=== PATIENT | male | born 1945 | race Caucasian/White ===

== ENCOUNTER 2019-01-06 10:36 | Inpatient (IN) ==
--- NOTE | 2019-01-06 12:14 | Critical Care Consultation ---
Date of Consultation January 06, 2019 Assessment & Plan (1) Acute respiratory failure with hypoxia: Neuro-awake alert CV- HD stable. aspirin, statin, clopidogrel(unclear why he is on this). check echo Pulmonary- acute hypoxic respiratory failure unclear cause atelectasis vs aspiration. less likely pulmonary embolism but may need to workup if not improving. titrate off o2 for sat >92% ID- no clear infection. abx for possible aspiration pneumonia Renal- cr 1.2 recheck here GI- diet as tolerated Heme- thrombocytopenia likely sepsis. enoaparin proph Endocrine- keep blood sugars <180 Dispo- transfered here to ICU if sat ok may be able to be downgraded later History of Present Illness Reason for Consultation: acute respiratory failure Attending Physician: Lazaro Quintana MD History of Present Illness 73 y/o male with a history of HTN, hyperlipidemia who started having nausea, vomiting and diarrhea on Thursday 5 days ago. He then presented to [facility] on 01/04. on 01/05 he had infiltrate at left base on CXR and on CT chest abd had atelectasis at bases but no intraabdominal process. 01/05 ultrasound LE negative for DVT 01/05 ultrasound RUQ mild hepatomegaly and nonspecific thickenign of gallbladder wall on 01/05 he was febrile up to 103.8 F. He has had increasing shortness of breath and worsening signs of sepsis and was transferred here for further care. Currently he still complaints of shortness of breath. He has not pain. no further nausea. he says one of the times he vomited he saw some blood Patient History Medical History Borderline diabetes mellitus Diverticulosis Glaucoma HTN (hypertension) Hiatal hernia Hyperlipidemia Hyperplastic colon polyp Kidney stones Surgical History Knee joint cyst Family History Brother Colorectal cancer Social History Communication Ability: Effective Beliefs That Will Affect Care: None Current Living Situation: Spouse Feels Safe at Home: Yes Smoking Status: Never smoker Hx Alcohol Use: No Hx Substance Use: No Review of Systems Constitutional: no fevers no chills no weight loss Eyes: no blurry or double vision EENT: no sore throat, no congestion Respiratory: + cough + shortness of breath Cardiovascular: no chest pain no palpitations GI: + abdominal pain, + nausea, + vomiting, + diarrhea, no constipation Gu: no dysuria, no frequency MSK: no joint pain, no muscle aches Skin: no rash Neuro: no headache, no dizziness, no focal weakness Endocrine: no heat or cold intolerance heme: no easy bruising, no lymphadenopathy Psych: no depression, no anxiety Physical Exam Physical Exam: Constitutional: Comfortable NAD HEENT: normocephalic atraumatic. MMM. no cervical lymphadenopathy CV: RRR nl s1,s2 no murmurs rubs or gallops Lungs: slight crackles bilaterally. no accessory muscle use. some dyspnea with speaking. on NRB sat 95-96% Abd: soft nontender nondistended. normal bowel sounds Ext: no edema. no cyanosis, no clubbing Skin: warm dry Neuro: alert and oriented. moving all extremities Psych: normal mood and affect Results & Data Laboratory Results reviewed labs from outside hosptal Diagnostic Findings reviewed CT from outside hospital atelectatis at bases posteriorly rest of lung clear on 01/05
[2019-01-06] MEDS ORDERED: ICU PROTOCOL FOR HYPERGLYCEMIA PRN (12:17)
[2019-01-06] MEDS ORDERED: ALBUT/IPRATROP 3MG/0.5MG NEB 3 ML VIAL INH PRN (12:17)
[2019-01-06] MEDS ORDERED: VANCOMYCIN CONSULT ACTIVE PRN (12:38)
[2019-01-06] MEDS ORDERED: PIPERACILLIN/TAZOBACTAM 4.5 GM in DEXTROSE 5% 100 ML IV STA (12:38)
[2019-01-06] MEDS ORDERED: PIPERACILL/TAZOBAC CONSULT ACTIVE PRN (12:38)
[2019-01-06] MEDS ORDERED: PATIENT'S ALLERGY INFO NEEDS ENTERED SCH (12:45)
[2019-01-06] MEDS ORDERED: PATIENT'S HEIGHT AND/OR WEIGHT NEEDED SCH (12:45)
--- NOTE | 2019-01-06 13:24 | Pharmacy Report ---
Pharmacy Abx Dose Short Note - Date of Service January 06, 2019 - Assessment & Plan Assessment * 73 year old M transfer from [facility] for respiratory distress. Per [facility] rubbish collector (Dr. Mas), not likely infectious etiology but will continue Zosyn and vancomycin that the patient was receiving @ [facility] prior to transfer * [facility] records reviewed * Vancomycin q12h active order from 01/05 @ 1800. Last dose charted as admin 01/06 @ 0615. Dose (in mg) not reported, unknown start date, unknown if received loading dose. * Vancomycin trough ordered for 01/06 @ 1730 * Zosyn 3.375 g IV q6h active order from 01/05 @ 0530. Last dose charted as admin 01/06 @ 0615. Likely 30 minute infusions 2nd interval of q6h. Will switch to 4 hr infusions here * Azithromycin 500 mg IV q24h active order from 01/04 @ 1800. Last dose charted as admin 01/05 @ 1820 Vancomycin * Goal vancomycin *trough* 15-20 mcg/mL * Random level ordered for now. Will likely be elevated as patient received dose this AM at 0615, but this is not a trough on a q12h regimen * Level was 21.2 mcg/mL. Based on estimated ke for CrCL of 49, level will not fall to 15 mcg/mL until 2029 tonight. Therefore OK to continue at previously scheduled time of 1800. However, will not order ongoing dose at this time 2nd unclear trend in renal function and will instead order a random level with AM labs tomorrow Plan * Vancomycin 1500 mg IV x1 @ 1800 * Random level with AM labs on 01/07 Pharmacy will continue to follow and will adjust dose/frequency as necessary. Thank you.
[2019-01-06 13:41] LABS: BUN Creatinine Ratio 14.7 (10-20); Calcium 8.2 mg/dl (8.5-10.1); Creatinine Clr Calc Pharmacy 48.6 ml/min; Est GFR (African American) 48.8; Est GFR (Non-African American) 42.1; Potassium 3.1 mmol/L (3.5-5.1)
[2019-01-06] MEDS: PIPERACILLIN/TAZOBACTAM 3.375 GM in DEXTROSE 5% 100 ML IV SCH ×2 (13:43→23:54)
[2019-01-06 13:47] LABS: Hematocrit (blood only) 38.2 % (42-52); Hemoglobin 13.7 g/dL (14.0-18.0); Mean Corpuscular Hgb Conc 35.9 g/dL (32-36); Mean Corpuscular Volume 87.6 fL (80-100); Platelet Count 25 K/uL (130-400); RDW Standard Deviation 42.1 fL (36.4-46.3); Red Blood Count 4.36 M/uL (4.7-6.1); White Blood Count 3.79 K/uL (4.8-10.8)
[2019-01-06 13:48] LABS: Basophils # (auto) 0.01 K/uL (0-0.2); Basophils % (auto) 0.3 %; Dohle Bodies 1+; Immature Granulocytes % (auto) 2.6 %; Lymphocytes # (auto) 0.12 K/uL (1.2-3.4); Lymphocytes % (auto) 3.2 %; Monocytes # (auto) 0.03 K/uL (0.11-0.59); Monocytes % (auto) 0.8 %; Neutrophils # (auto) 3.53 K/uL (1.4-6.5); Neutrophils % (auto) 93.1 %; Platelet Estimate SIGNIFIC DECREASED (Normal); Toxic Vacuolation 1+
[2019-01-06] MEDS ORDERED: DEXTROSE 50% 50 ML SYRINGE IV ONE (13:48)
[2019-01-06 13:52] LABS: INR 1.2 (0.9-1.1); Prothrombin Time 11.9 Seconds (9.0-12.0)
[2019-01-06 14:06] LABS: Albumin Level 2.5 gm/dl (3.4-5.0); Bilirubin Direct 1.5 mg/dl (0-0.2); Creatine Kinase MB 6.2 ng/ml (0.5-3.6); Total Protein 5.7 gm/dl (6.4-8.2); Troponin I 0.095 ng/ml (0-0.045)
[2019-01-06] MEDS ORDERED: POTASSIUM CHLORIDE 20 MEQ TABCR PO STA (14:09)
[2019-01-06] MEDS ORDERED: LACTATED RINGER'S 1,000 ML IV ONE ×2 (14:15→15:15)
[2019-01-06] MEDS: POTASSIUM CHLORIDE / WTR 10 MEQ/100 ML PLCT IV SCH ×2 (14:20→15:13)
[2019-01-06 14:45] LABS: iSTAT Allen Test Pass; iSTAT Arterial Blood Gas HCO3 15 meg/L (19-24); iSTAT Arterial Blood Gas pCO2 25 mmHg (35-46); iSTAT Carbon Dioxide 16 mEq/l (24-31); iSTAT FiO2 50 %; iSTAT Site R Radial
--- NOTE | 2019-01-06 14:52 | History & Physical Report ---
Date of Service January 06, 2019 Assessment & Plan (1) Sepsis: * Most likely secondary to aspiration pneumonia but with no clear etiology at this point * Gibson culture is negative from [facility] * Lactic acid remains elevated at 6.7 * Temperature 38.3C * Tachycardic at 105 bpm * Tachypnea 30 respirations per minute * Hypoxic requiring high flow O2 and BiPAP * CT scan of the chest abdomen pelvis with atelectasis versus pneumonia at bilateral bases. No abdominal process identified * Originally admitted to [facility] and started on azithromycin and ceftriaxone for 2 days * Was changed to vancomycin and Zosyn * Today is day 3 of IV antibiotics * Influenza toxin negative for A and B at [facility]; check PCR for influenza A and B * Check a MRSA screening * Continue supportive care (2) Atrial fibrillation by electrocardiogram: * New onset * Metoprolol 50 mg twice daily p.o. at home * Will treat underlying hypoxia and see if patient converts to normal sinus rhythm * Continue to monitor closely on telemetry * Patient with no awareness of tachyarrhythmia or prior history of atrial fibrillation * Check echocardiogram * Check TSH with reflex T4 (3) Hypertension: * Patient currently hemodynamically stable with a systolic blood pressure of 113. * Home medications include amlodipine 5 mg p.o. daily and metoprolol tartrate 50 mg p.o. twice daily * Treat responsively in the ICU * Echocardiogram completed with results pending (4) Hyperlipidemia: * Continue atorvastatin (5) History of TIA (transient ischemic attack): * Family reports no imaging supportive of CVA * Prophylactically patient was started 81 mg of enteric-coated aspirin and clopidogrel 75 mg p.o. daily as well as atorvastatin 40 mg p.o. daily * From reports no residual neurological deficits * Continue to follow (6) Hypokalemia: * Potassium 3.1 * Magnesium 2.0 * Replete and follow serial labs * Continue to monitor on telemetry (7) Thrombocytopenia: * Unclear etiology at this point * Family reports normal platelet count prior to admission * Patient positive for hematuria at this time * No gross hemoptysis * No melena or hematochezia noted * Hemoglobin is stable * Continue to follow labs serially (8) Acute kidney injury: * Creatinine 1.61, BUN 24 * Hydration * Echocardiogram * Follow serial labs * Patient currently with hematuria * Salguero catheter in place for strict I's and O's (9) Elevated troponin: * Most likely ischemic demand from hypoxia with respiratory failure * Follow serial isos * EKG with no ST changes * Echocardiogram completed; report pending * Follow on telemetry (10) Transaminitis: * Judicious use of acetaminophen * No abdominal pain, guarding, rebound tenderness * Bowel sounds are present and appropriate * Follow serial labs (11) DVT prophylaxis: * Hold clopidogrel and aspirin due to thrombocytopenia with a platelet count of 20,000 * No chemical prophylaxis secondary to hematuria and thrombocytopenia * Laila Ureña as tolerated Critical care time: 60 minutes Please refer to Dr. Quintana's addendum for further recommendations. History of Present Illness Chief Complaint: Shortness of breath; nausea and vomiting on admission to [facility] Primary Care Provider: Alvin Schilling MD Attending: Dr. Lazaro Quintana This is a 73-year-old male that was transferred to our intensive care unit directly from the intensive care unit at [facility] in [facility]. He began with nausea and vomiting and diarrhea last Thursday. Then 3 days ago he presented to [facility] in [facility] with shortness of breath. Chest x-ray and CT scan reveal atelectasis versus pneumonia versus pleural effusion. Patient was started on azithromycin and ceftriaxone. Patient had no significant improvement so he was converted to vancomycin and Zosyn yesterday. He continued to worsen and today had tachypnea with a respiratory rate in the 30s and continued hypoxia. ABG showed no acidosis and no hypercapnia. Dr. Nam then called and requested transfer to [facility]. The patient has a past medical history significant for borderline diabetes mellitus, diverticulosis, glaucoma, status post cataract surgery bilaterally, hypertension, hiatal hernia, hyperlipidemia, hyperplastic colon polyp, nephrolithiasis, and question of TIA. On presentation the patient appears to be short of breath but saturates in the mid 90s with high flow O2. Imaging from [facility] was reviewed and shows probable atelectasis by laterally. There is no significant evidence of pneumonia or large pleural effusions. Patient has no prior history of pulmonary disease and has never required supplemental oxygen. He has no tobacco or ethanol use history. 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 Over the last couple of months the patient has been rotating hay in his barn and noticed large amounts of bird droppings from Barn swallows. The patient has no exposure to silage. He does set traps for rodents in the barn but no significant exposure to rodent feces. He denies any chest pain or tightness. He denies any pleuritic chest pain. He does have hematuria and at least one episode of some blood-tinged mucus with cough. He has no current nausea. He has no current abdominal pain or back pain. He denies any asymmetrical edema of the lower extremities. He denies any gastrocnemius pain. He has no other acute complaints. Allergies Allergy/AdvReac Type Severity Reaction Status Date / Time No Known Drug Allergies Allergy Unknown Verified 01/06/19 13:09 Home Medications Home Medications Medication Instructions Recorded Confirmed Type amlodipine 5 mg PO DAILY 01/06/19 01/06/19 History aspirin [Aspirin Low Dose] 81 mg PO DAILY 01/06/19 01/06/19 History atorvastatin 40 mg PO DAILY 01/06/19 01/06/19 History clopidogrel 75 mg PO DAILY 01/06/19 01/06/19 History metformin 500 mg PO BID 01/06/19 01/06/19 History metoprolol tartrate 50 mg PO BID 01/06/19 01/06/19 History Past Med/Surg History Medical History Borderline diabetes mellitus Diverticulosis Glaucoma HTN (hypertension) Hiatal hernia Hyperlipidemia Hyperplastic colon polyp Kidney stones Surgical History Knee joint cyst Family History Brother Colorectal cancer Social History Communication Ability: Effective Beliefs That Will Affect Care: None Current Living Situation: Spouse Feels Safe at Home: Yes Smoking Status: Never smoker Hx Alcohol Use: No Hx Substance Use: No Review of Systems All systems reviewed & are unremarkable except as noted in HPI & below Physical Exam Vital Signs (Past 24 Hours): Last Vital Signs Temp 38.2 C H 01/06/19 12:21 Pulse 106 H 01/06/19 13:47 Resp 28 H 01/06/19 13:47 BP 113/74 01/06/19 13:00 Pulse Ox 96 01/06/19 13:47 Physical Exam: GENERAL : No acute distress EYES: No icterus, gaze conjugate. Pupils are equal and reactive to light NOSE: No evidence of epistaxis. High flow nasal cannula in place MOUTH: No lesions or candidiasis. Mucosa is moist. No facial droop or deviation of tongue NECK: Supple. No stridor or appreciation of bruits LUNGS: Bibasilar rales appreciated. No accessory muscle use. Short of breath with sentences when speaking HEART: Regular, tachycardic. No appreciation of murmurs gallops or rubs ABDOMEN: Soft, NT, ND, BS Present EXTREMITIES: No LE edema, pedal pulses intact. NEURO: A&OX3. Able to move all extremities. Strength equal and appropriate bilaterally to upper and lower extremities. Deep tendon reflexes to the biceps, brachioradialis, patellar tendons equal and appropriate 2/4. Speech is slightly garbled but coherent. Family present and states his speech is abnormal compared to usual. Gait and Romberg are deferred. Results & Data Laboratory Results 01/06/19 13:06 01/06/19 13:[address] chest abdomen pelvis without contrast, portable chest x-ray reviewed from [facility] record Transthoracic echocardiogram completed. Report pending EKG with atrial fibrillation with rapid ventricular response. QTC 436. Ventricular rate 105. No appreciation of ST wave abnormality Code Status & VTE Plan Code Status Level 1: Full code VTE Prophylaxis Plan VTE Prophylaxis will be ordered: No Reason for no VTE drug order: Contraindicated (Thrombocytopenia with a platelet count of 20,000) Critical Care Time CCT: 60 minutes Critical Care Time: Yes Supervising Physician Co-Signing Physician Notes I supervised PA/EVENT PLANNER on this admission. I interviewed and examined the patient independently of Phan Jack. The plan is as written in the PA/EVENT PLANNER's note except for any following changes/exceptions: 73yo M w/ hx of HTN who presented to [facility] 4 days ago with nausea and vomiting and one episode of watery diarrhea. Over the course of 4 days, he became increasingly short of breath and required more supplemental O2. CT scans were done which did not show a source of significant infection. He was initially on ceftriaxone and azithromycin, but was switched to vanc/Zosyn on 01/06 when he continued to get worse. At this point, he has no longer had nausea or vomiting or diarrhea, but continues to be very short of breath. He was sent to [facility] due to continued illness and hematuria. - Continue high flow nasal cannula - Follow cultures and labs - Will follow peripheral smear - Consider further vector-borne illnesses such as anaplasmosis or ehrlichiosis
[2019-01-06] MEDS ORDERED: DEXTROSE 50% 50 ML SYRINGE IV STA (15:22)
[2019-01-06] MEDS ORDERED: GLUCAGON FOR INJ 1 MG VIAL SQ PRN ×2 (15:24→20:46)
[2019-01-06] MEDS ORDERED: CARBOHYDRATES FOR HYPOGLYCEMIA PO PRN ×2 (15:24→20:46)
[2019-01-06] MEDS ORDERED: GLUCOSE 10 TABS/TUBE PO PRN ×2 (15:24→20:46)
[2019-01-06] MEDS ORDERED: DEXTROSE 50% 50 ML SYRINGE IV PRN ×2 (15:24→20:46)
[2019-01-06] MEDS ORDERED: GLUCOSE 40% GEL 15 GM TUBE PO PRN ×2 (15:24→20:46)
[2019-01-06] MEDS: ACETAMINOPHEN 325 MG TAB PO PRN (16:22)
[2019-01-06 16:25] LABS: Influenza A virus by PCR Neg for Influ A (Neg); Influenza B virus by PCR Neg for Influ B (Neg)
[2019-01-06] MEDS: INSULIN ASPART 100 UNITS/ML 3 ML PEN SC SCH ×2 (17:16→22:21)
[2019-01-06] MEDS ORDERED: ONDANSETRON INJ 2 MG/ML 2 ML VIAL IV PRN (17:53)
[2019-01-06] MEDS ORDERED: VANCOMYCIN HCL 1,500 MG in SODIUM CHLORIDE 0.9% 500 ML IV ONE (18:00)
[2019-01-06 18:52] LABS: BUN Creatinine Ratio 14.3 (10-20); Calcium 8.1 mg/dl (8.5-10.1); Est GFR (African American) 44.4; Est GFR (Non-African American) 38.3
[2019-01-06 18:53] LABS: Potassium 3.6 mmol/L (3.5-5.1)
[2019-01-06 20:22] LABS: Appearance Urine Turbid (Clear); Bacteria Urine Automated Negative (Negative); Blood Urine 3+ (Negative); Color Urine Orange; Epithelial Cell Urine Auto >30 /lpf (0-5); Glucose Urine UA Negative (Negative); Ketones Urine Trace (Negative); Leukocyte Esterase Urine Trace (Negative); Nitrite Urine Negative (Negative); Protein Urine 2+ (Negative); RBC Urine Automated >30 /hpf (0-4); Specific Gravity Urine 1.021 (1.000-1.030); Urobilinogen Urine Negative (Negative)
[2019-01-06 20:34] LABS: Bilirubin Urine Negative (Negative); Ictotest Urine Negative (Negative)
[2019-01-06 20:38] LABS: Renal Epithelial Cells Urine 0-5 /lpf (0-5)
[2019-01-06] MEDS ORDERED: VANCOMYCIN HCL 1,000 MG in SODIUM CHLORIDE 0.9% 500 ML IV SCH (21:00)
[2019-01-06 21:21] LABS: Lyme Ab IgG w/WB Rflx Negative (Negative); Lyme Ab IgM w/WB Rflx Negative (Negative)
[2019-01-06] MEDS ORDERED: METOPROLOL TARTRATE 1 MG/ML VIAL IV STA (21:24)
[2019-01-06] MEDS: DOXYCYCLINE HYCLATE 100 MG in DEXTROSE 5% 100 ML IV SCH (21:32)
[2019-01-06] MEDS ORDERED: LACTATED RINGER'S 500 ML IV ONE (21:36)
[2019-01-06] MEDS: D5W NORMOSOL-R 1,000 ML IV SCH (22:44)
[2019-01-07 00:54] LABS: BUN Creatinine Ratio 13.2 (10-20); Calcium 8.1 mg/dl (8.5-10.1); Creatinine Clr Calc Pharmacy 35.3 ml/min; Est GFR (African American) 33.1; Est GFR (Non-African American) 28.5; Potassium 4.2 mmol/L (3.5-5.1)
[2019-01-07 00:55] LABS: Troponin I 0.106 ng/ml (0-0.045)
[2019-01-07 01:02] LABS: Hematocrit (blood only) 37.5 % (42-52); Hemoglobin 13.7 g/dL (14.0-18.0); Mean Corpuscular Hgb Conc 36.5 g/dL (32-36); Platelet Count 26 K/uL (130-400); RDW Standard Deviation 41.3 fL (36.4-46.3); Red Blood Count 4.36 M/uL (4.7-6.1); White Blood Count 5.57 K/uL (4.8-10.8)
[2019-01-07] MEDS ORDERED: LACTATED RINGER'S 500 ML IV ONE (01:05)
[2019-01-07 01:10] LABS: Echinocytes 3+; Giant Platelets 3+; Toxic Vacuolation 3+
[2019-01-07 01:14] LABS: ALC (manual) 0.39 K/uL (1.2-3.4); Lymphocytes # (manual) 0.39 K/uL (1.2-3.4); Monocytes # (manual) 0.06 K/uL (0.11-0.59)
[2019-01-07] MEDS ORDERED: MIDAZOLAM HCL 5 MG/ML VIAL IV ONE (01:49)
[2019-01-07] MEDS ORDERED: ETOMIDATE 2 MG/ML 20 ML VIAL IV ONE (01:49)
[2019-01-07] MEDS: ACETAMINOPHEN 325 MG TAB PO PRN (03:20)
[2019-01-07] MEDS ORDERED: ACETAMINOPHEN 65 ML IV ONE (03:22)
[2019-01-07] MEDS: DEXMEDETOMIDINE HCL 200 MCG in SODIUM CHLORIDE 0.9% 48 ML IV PRN ×4 (03:34→13:19)
[2019-01-07 04:37] LABS: INR 1.1 (0.9-1.1); Prothrombin Time 11.6 Seconds (9.0-12.0)
[2019-01-07 04:50] LABS: Albumin Level 2.3 gm/dl (3.4-5.0); BUN Creatinine Ratio 13.8 (10-20); Bilirubin Direct 2.1 mg/dl (0-0.2); Calcium 8.1 mg/dl (8.5-10.1); Creatinine Clr Calc Pharmacy 35.6 ml/min; Est GFR (African American) 33.4; Est GFR (Non-African American) 28.9; Potassium 3.6 mmol/L (3.5-5.1)
[2019-01-07 04:55] LABS: Bilirubin,Total 3.6 mg/dl (0.2-1); Phosphorus 2.1 mg/dl (2.5-4.9); Total Protein 5.4 gm/dl (6.4-8.2); Troponin I 0.123 ng/ml (0-0.045)
[2019-01-07 05:04] LABS: Hematocrit (blood only) 37.2 % (42-52); Hemoglobin 13.4 g/dL (14.0-18.0); Mean Corpuscular Volume 85.9 fL (80-100); Platelet Count 25 K/uL (130-400); RDW Coefficient of Variation 13.1 % (11.5-14.5); RDW Standard Deviation 41.5 fL (36.4-46.3); Red Blood Count 4.33 M/uL (4.7-6.1); White Blood Count 4.38 K/uL (4.8-10.8)
[2019-01-07 05:06] LABS: Basophils # (auto) 0.07 K/uL (0-0.2); Basophils % (auto) 1.6 %; Echinocytes 2+; Eosinophils # (auto) 0.02 K/uL (0-0.5); Eosinophils % (auto) 0.5 %; Giant Platelets 2+; Immature Granulocytes % (auto) 4.6 %; Lymphocytes % (auto) 9.1 %; Monocytes # (auto) 0.19 K/uL (0.11-0.59); Monocytes % (auto) 4.3 %; Neutrophils % (auto) 79.9 %; Toxic Vacuolation 1+
--- NOTE | 2019-01-07 05:42 | Critical Care Progress Note ---
Date of Service January 07, 2019 Subjective Around 3 AM, the patient did have worsening mental status changes including visual hallucinations and persistent paranoia. In addition, he was having persistent tachycardia with irregularly irregular rhythm appreciated on monitor. No focal neurological deficits are present on evaluation. The patient had received metoprolol earlier in the evening for A. fib, however at this point, the patient was beginning to spike a fever. With regard to concerns for worsening sepsis versus acute ICU delirium versus withdrawal versus other underlying encephalopathy, decision was made to bolus the patient with IV fluids followed by starting low-dose Precedex drip with the intent for improvement in mental status as well as heart rate. Shortly after initiation of Precedex drip, the patient was transported to CT for evaluation of possible development of spontaneous hemorrhage in the setting of thrombocytopenia and altered mental status. Upon return, the patient was placed on BiPAP and Precedex drip continue to be titrated. At this point, we will continue to monitor with need for intervention to including endotracheal intubation and further aggressive measures including antirheumatics, pressors, amongst others. I have personally spent 45 minutes of critical care time in the direct management of this patient. This is a life/limb threatening event. This includes time spent evaluating patient, direct bedside care, chart review, placing orders, interpretation of diagnostic studies, discussion with consultants, patient, and family members, as well as other required patient management activities. This time is exclusive of all separately billable procedures, and teaching time and separate from and in addition to any other critical care service time. Physical Exam Vital Signs (Past 24 Hours): Last Vital Signs Temp 38.4 C H 01/06/19 20:04 Pulse 111 H 01/07/19 03:01 Resp 29 H 01/07/19 03:01 BP 138/89 01/07/19 03:00 Pulse Ox 97 01/07/19 03:01
[2019-01-07] MEDS: PIPERACILLIN/TAZOBACTAM 3.375 GM in DEXTROSE 5% 100 ML IV SCH ×3 (05:53→20:31)
--- NOTE | 2019-01-07 06:44 | CT Scan Report ---
CT OF THE HEAD WITHOUT CONTRAST CLINICAL HISTORY: AMS, thrombocytopenia COMPARISON STUDY: No previous studies for comparison. CT DOSE: 2162.72 mGy.cm TECHNIQUE: Helical axial images of the head were obtained without IV contrast. Automated exposure con trol was utilized for the study. A dose lowering technique was utilized adhering to the principles o f ALARA. FINDINGS: No acute intracranial hemorrhage, midline shift or mass effect is present. Ventricular syst em is normal. Basilar cisterns are patent. There are no extra-axial collections. White matter hypoden sity suggests small vessel disease. There are no findings to suggest acute dural sinus thrombosis or acute territorial infarct. There are no significant calvarial abnormalities. There is mild sinus muco leonides thickening. Mastoid air cells are clear. IMPRESSION: No acute intracranial findings. Electronically signed by: Cuauhtemoc Wolfe M.D. 01/07/2019 6:43 AM
[2019-01-07 06:50] LABS: Estimated Average Glucose 134 mg/dl; Hemoglobin A1C 6.3 % (4.5-5.6)
--- NOTE | 2019-01-07 06:53 | CT Scan Report ---
CT OF THE CHEST WITHOUT IV CONTRAST CLINICAL HISTORY: Pneumonia versus atelectasis. COMPARISON STUDY: CT of the chest, abdomen and pelvis January 05, 2019. Chest radiograph January 06, 2019. TECHNIQUE: Axial images of the chest were obtained without IV contrast. Images were reviewed in the axial, sagittal, and coronal planes. IV contrast was not administered for this examination. Automat ed exposure control was utilized for the study. A dose lowering technique was utilized adhering to t he principles of ALARA. FINDINGS: No enlarged axillary, mediastinal or hilar lymph nodes are present. The heart is mildly en larged. There is no pericardial effusion. Small right and trace left pleural effusions are noted. Ass ociated dependent airspace opacities have increased since CT of January 05, 2019. No central obstructing mass is identified. There is no pneumothorax. No cavitation is present. No suspicious osseous lesion within the bony thorax is noted. The abdomen and pelvis will be reported separately. Mild splenomega ly is noted. IMPRESSION: 1. Increase in small bilateral pleural effusions, right larger than left, and associated airspace opa cities since chest CT of January 05, 2019. These opacities may reflect atelectasis or pneumonia. 2. Mild cardiomegaly. 3. Mild splenomegaly. 4. Small hiatal hernia. Electronically signed by: Cuauhtemoc Wolfe M.D. 01/07/2019 6:52 AM
--- NOTE | 2019-01-07 07:19 | XRay Report ---
XR chest 1V portable CLINICAL HISTORY: Hypoxia. COMPARISON STUDY: Chest CT performed earlier today. FINDINGS: There are small bilateral pleural effusions. There is no pneumothorax. There is pulmonary v ascular congestion with possible mild pleural edema. Bilateral airspace opacities are noted. Mild car diomegaly is noted. IMPRESSION: 1. Mild cardiomegaly. Pulmonary vascular congestion with suspected mild pulmonary edema. 2. Small bilateral pleural effusions and associated airspace opacities which reflect atelectasis or c onsolidation. Electronically signed by: Cuauhtemoc Wolfe M.D. 01/07/2019 7:18 AM
--- NOTE | 2019-01-07 07:44 | CT Scan Report ---
CT SCAN OF THE ABDOMEN AND PELVIS WITHOUT IV CONTRAST CLINICAL HISTORY: Thrombocytopenia. Change in mental status. COMPARISON STUDY: Abdominal CT dated 01/05/2019. TECHNIQUE: CT scan of the abdomen and pelvis is performed from the lung bases to the proximal femora. Images are reviewed in the axial, sagittal, and coronal planes. IV contrast was not administered for this examination as per the referring clinician. Note that the examination was performed in signific antly suboptimal fashion without oral and IV contrast. The examination is also degraded by motion art ifact, and by streak artifact from the arms which could not be elevated above the abdomen. A dose low ering technique was utilized adhering to the principles of ALARA. FINDINGS: Lung bases: The heart is top normal in size and without pericardial effusion. There are small pleural effusions with bibasilar consolidation. There is a small hiatal hernia. Gynecomastia is noted. Liver: The unenhanced liver is normal in size, contour, and attenuation. There is no intrahepatic clara iary ductal dilatation. Gallbladder: There are small calcified gallstones. The gallbladder wall appears thickened and there i s mild pericholecystic inflammation.. Spleen: Normal in size and attenuation. Pancreas: The unenhanced pancreas is moderately atrophic but otherwise grossly unremarkable. Adrenal glands: Unremarkable. Kidneys: The unenhanced kidneys are atrophic and without hydronephrosis. There are least 2 nonobstruc ting left renal calculi which measure up to 7 mm. No right renal calculi are identified. There is no evidence of contour deforming renal mass lesion. Cortical calcification is noted along the lower pole of the right kidney. Abdominal vasculature: There is moderate to advanced atherosclerotic calcification mild ectasia of th e abdominal aorta. Bowel: A rectal temperature probe is in place. There is mild colonic diverticulosis without CT eviden ce of acute diverticulitis. No bowel obstruction is seen. The appendix is well-visualized and normal . Peritoneum: There is trace pelvic ascites. No intraperitoneal free air is seen. Lymphadenopathy: None. Pelvic viscera: The prostate gland is enlarged and heterogeneous, measuring 5.5 cm in transverse diam eter. The bladder is partially decompressed around a Salguero catheter. Foci of intraluminal gas are lik leonides related to instrumentation. The bladder wall appears thickened and trabeculated indicating chroni c outlet obstruction. Skeletal structures: The skeletal structures are osteopenic. Moderate lumbosacral spondylosis is obse rved. Degenerative change and partial fusion is noted in the sacroiliac joints. No lytic or blastic l esions are seen. IMPRESSION: 1. Significant suboptimal examination without oral and IV contrast. The examination is also compromis ed by streak and motion artifact. 2. Cholelithiasis with findings concerning for acute cholecystitis. Clinical correlation will be requ ired. Ultrasound could be considered for further assessment. 3. There are small pleural effusions with bibasilar consolidation. This could represent atelectasis a n/or pneumonia and clinical correlation will be required. 4. There is trace pelvic ascites. 5. Left-sided nephrolithiasis. 6. Additional findings as above. Electronically signed by: Phan Greene M.D. 01/07/2019 7:42 AM
[2019-01-07] MEDS: D5W NORMOSOL-R 1,000 ML IV SCH ×2 (08:24→17:28)
[2019-01-07] MEDS: DOXYCYCLINE HYCLATE 100 MG in DEXTROSE 5% 100 ML IV SCH ×2 (08:25→20:31)
[2019-01-07] MEDS: ATORVASTATIN 40 MG TAB PO SCH (08:25)
[2019-01-07] MEDS: INSULIN ASPART 100 UNITS/ML 3 ML PEN SC SCH ×3 (08:27→16:17)
[2019-01-07] MEDS ORDERED: CLOPIDOGREL BISULFATE 75 MG TAB PO SCH (09:00)
[2019-01-07] MEDS ORDERED: ASPIRIN 81 MG ECTAB PO SCH (09:00)
[2019-01-07] MEDS ORDERED: ENOXAPARIN INJ 40 MG/0.4 ML SYR SQ SCH (09:00)
--- NOTE | 2019-01-07 10:03 | Critical Care Progress Note ---
Date of Service January 07, 2019 Assessment & Plan (1) Acute respiratory failure with hypoxia: Neuro-confusion and delirium due to metabolic encephalopathy due to sepsis. on dexmedetomidine which has not been helping enough. haloperidol for agitation CV- HD stable. aspirin, statin, clopidogrel(unclear why he is on this). echo EF 55-60% Pulmonary- acute hypoxic respiratory failure atelectasis. continue high flow NC titrate off o2 for sat >92% ID- sepsis with evidence of end organ dysfunction due anaplasmosis on doxycycline. abx for possible aspiration pneumonia Renal- acute renal failure. continue fluids GI- NPO for now with mental status. 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 watch for bleeding. SCD proph Endocrine- blood sugars controlled Dispo- continue ICU care for neuro monitoring and respiratory support I have personally spent 60 minutes of critical care time in the direct management of this patient. This is a life/limb threatening event. This includes time spent evaluating patient, direct bedside care, chart review, placing orders, interpretation of diagnostic studies, discussion with consultants, patient, and/or family members regarding treatment decisions, as well as other required patient management activities. This time is exclusive of all separately billable procedures, and teaching time and separate from and in addition to any other critical care service time. Subjective overnight more confused with hallucinations nad delusions. agitated at times. Physical Exam Vital Signs (Past 24 Hours): Last Vital Signs Temp 38.4 C H 01/06/19 20:04 Pulse 122 H 01/07/19 06:00 Resp 25 H 01/07/19 06:00 BP 124/96 01/07/19 06:00 Pulse Ox 98 01/07/19 06:00 Physical Exam: Constitutional: Comfortable NAD on high flow NC HEENT: normocephalic atraumatic. MMM. no cervical lymphadenopathy CV: RRR nl s1,s2 no murmurs rubs or gallops Lungs: clear to auscultation bilaterally. no accessory muscle use Abd: soft nontender nondistended. normal bowel sounds Ext: no edema. no cyanosis, no clubbing Skin: warm dry Neuro: alert but confused with delusions and hallucinations. moving all extremities Psych: paranoid and delusional Results & Data Laboratory Results Laboratory Results - last 24 hr 01/06/19 01/06/19 01/06/19 11:50 13:06 13:06 WBC 3.79 L RBC 4.36 L Hgb 13.7 L Hct 38.2 L MCV 87.6 MCH 31.4 MCHC 35.9 RDW Std Deviation 42.1 RDW Coeff of June 13.0 Plt Count 25 L* Immature Gran % (Auto) 2.6 Neut % (Auto) 93.1 Lymph % (Auto) 3.2 [place] % (Auto) 0.8 Eos % (Auto) 0.0 Baso % (Auto) 0.3 Immature Gran # (Auto) 0.10 H Neut # (Auto) 3.53 Lymph # (Auto) 0.12 L [place] # (Auto) 0.03 L Eos # (Auto) 0.00 Baso # (Auto) 0.01 Neutrophils % (Manual) Lymphocytes % (Manual) Monocytes % (Manual) Neutrophils # (Manual) Total Absolute Neuts Lymphocytes # (Manual) Total Abs Lymphocytes Monocytes # (Manual) Toxic Vacuolation 1+ Dohle Bodies 1+ Platelet Estimate SIGNIFIC DECREASED Giant Platelets Echinocytes Peripher Smr Path Cons PT INR Sample Site POC pH POC pCO2 POC pO2 POC HCO3 POC Total CO2 POC Base Excess POC ABG O2 Sat Emanuel Test O2 Delivery Device POC O2 Rate POC FiO2 IPAP Sodium Potassium Chloride Carbon Dioxide Anion Gap BUN Creatinine Est Cr Clr Drug Dosing Est GFR ( Amer) Est GFR (Non-Af Amer) BUN/Creatinine Ratio Glucose POC Glucose Estimat Average Glucose Hemoglobin A1c Lactate Calcium Phosphorus Magnesium Total Bilirubin Direct Bilirubin AST ALT Alkaline Phosphatase Total Creatine Kinase CK-MB (CK-2) CK/CKMB % Calc Troponin I Total Protein Albumin Lipase Procalcitonin TSH Urine Color Urine Appearance Urine pH Ur Specific [place] Urine Protein Urine Glucose (UA) Urine Ketones Urine Blood Urine Nitrite Urine Bilirubin Urine Urobilinogen Ur Leukocyte Esterase Urine WBC (Auto) Urine RBC (Auto) U Hyaline Cast (Auto) U Epithel Cells (Auto) Urine Bacteria (Auto) Ur Renal Epithelial Cell Granular Casts Nasal Screen MRSA (PCR) Negative Random Vancomycin Lyme Disease IgG Ab Lyme Disease IgM Ab Hepatitis C Ab Screen Neg Influenza Type A (PCR) Influenza Type B (PCR) 01/06/19 01/06/19 01/06/19 13:06 13:06 13:24 WBC RBC Hgb Hct MCV MCH MCHC RDW Std Deviation RDW Coeff of June Plt Count Immature Gran % (Auto) Neut % (Auto) Lymph % (Auto) [place] % (Auto) Eos % (Auto) Baso % (Auto) Immature Gran # (Auto) Neut # (Auto) Lymph # (Auto) [place] # (Auto) Eos # (Auto) Baso # (Auto) Neutrophils % (Manual) Lymphocytes % (Manual) Monocytes % (Manual) Neutrophils # (Manual) Total Absolute Neuts Lymphocytes # (Manual) Total Abs Lymphocytes Monocytes # (Manual) Toxic Vacuolation Dohle Bodies Platelet Estimate Giant Platelets Echinocytes Peripher Smr Path Cons PT 11.9 INR 1.2 H Sample Site POC pH POC pCO2 POC pO2 POC HCO3 POC Total CO2 POC Base Excess POC ABG O2 Sat Emanuel Test O2 Delivery Device POC O2 Rate POC FiO2 IPAP Sodium 137 Potassium 3.1 L Chloride 101 Carbon Dioxide 22 Anion Gap 14.0 H BUN 24 H Creatinine 1.61 H Est Cr Clr Drug Dosing 48.6 Est GFR ( Amer) 48.8 Est GFR (Non-Af Amer) 42.1 BUN/Creatinine Ratio 14.7 Glucose 77 POC Glucose Estimat Average Glucose Hemoglobin A1c Lactate Calcium 8.2 L Phosphorus 3.0 Magnesium 2.0 Total Bilirubin Direct Bilirubin AST ALT Alkaline Phosphatase Total Creatine Kinase CK-MB (CK-2) CK/CKMB % Calc Troponin I Total Protein Albumin Lipase Procalcitonin TSH Urine Color Urine Appearance Urine pH Ur Specific [place] Urine Protein Urine Glucose (UA) Urine Ketones Urine Blood Urine Nitrite Urine Bilirubin Urine Urobilinogen Ur Leukocyte Esterase Urine WBC (Auto) Urine RBC (Auto) U Hyaline Cast (Auto) U Epithel Cells (Auto) Urine Bacteria (Auto) Ur Renal Epithelial Cell Granular Casts Nasal Screen MRSA (PCR) Random Vancomycin 21.2 Lyme Disease IgG Ab Lyme Disease IgM Ab Hepatitis C Ab Screen Influenza Type A (PCR) Influenza Type B (PCR) 01/06/19 01/06/19 01/06/19 13:30 13:35 13:46 WBC RBC Hgb Hct MCV MCH MCHC RDW Std Deviation RDW Coeff of June Plt Count Immature Gran % (Auto) Neut % (Auto) Lymph % (Auto) [place] % (Auto) Eos % (Auto) Baso % (Auto) Immature Gran # (Auto) Neut # (Auto) Lymph # (Auto) [place] # (Auto) Eos # (Auto) Baso # (Auto) Neutrophils % (Manual) Lymphocytes % (Manual) Monocytes % (Manual) Neutrophils # (Manual) Total Absolute Neuts Lymphocytes # (Manual) Total Abs Lymphocytes Monocytes # (Manual) Toxic Vacuolation Dohle Bodies Platelet Estimate Giant Platelets Echinocytes Peripher Smr Path Cons PT INR Sample Site POC pH POC pCO2 POC pO2 POC HCO3 POC Total CO2 POC Base Excess POC ABG O2 Sat Emanuel Test O2 Delivery Device POC O2 Rate POC FiO2 IPAP Sodium Potassium Chloride Carbon Dioxide Anion Gap BUN Creatinine Est Cr Clr Drug Dosing Est GFR ( Amer) Est GFR (Non-Af Amer) BUN/Creatinine Ratio Glucose POC Glucose 61 L* Estimat Average Glucose Hemoglobin A1c Lactate 6.7 H* Calcium Phosphorus Magnesium Total Bilirubin 3.0 H Direct Bilirubin 1.5 H AST 224 H ALT 95 H Alkaline Phosphatase 66 Total Creatine Kinase 868 H CK-MB (CK-2) 6.2 H CK/CKMB % Calc 0.7 Troponin I 0.095 H* Total Protein 5.7 L Albumin 2.5 L Lipase Procalcitonin TSH Urine Color Urine Appearance Urine pH Ur Specific [place] Urine Protein Urine Glucose (UA) Urine Ketones Urine Blood Urine Nitrite Urine Bilirubin Urine Urobilinogen Ur Leukocyte Esterase Urine WBC (Auto) Urine RBC (Auto) U Hyaline Cast (Auto) U Epithel Cells (Auto) Urine Bacteria (Auto) Ur Renal Epithelial Cell Granular Casts Nasal Screen MRSA (PCR) Random Vancomycin Lyme Disease IgG Ab Lyme Disease IgM Ab Hepatitis C Ab Screen Influenza Type A (PCR) Influenza Type B (PCR) 01/06/19 01/06/19 01/06/19 13:48 14:12 14:33 WBC RBC Hgb Hct MCV MCH MCHC RDW Std Deviation RDW Coeff of June Plt Count Immature Gran % (Auto) Neut % (Auto) Lymph % (Auto) [place] % (Auto) Eos % (Auto) Baso % (Auto) Immature Gran # (Auto) Neut # (Auto) Lymph # (Auto) [place] # (Auto) Eos # (Auto) Baso # (Auto) Neutrophils % (Manual) Lymphocytes % (Manual) Monocytes % (Manual) Neutrophils # (Manual) Total Absolute Neuts Lymphocytes # (Manual) Total Abs Lymphocytes Monocytes # (Manual) Toxic Vacuolation Dohle Bodies Platelet Estimate Giant Platelets Echinocytes Peripher Smr Path Cons PT INR Sample Site R Radial POC pH 7.40 POC pCO2 25 L POC pO2 77 L POC HCO3 15 L POC Total CO2 16 L POC Base Excess -10.0 L POC ABG O2 Sat 96.0 H Emanuel Test Pass O2 Delivery Device BIPAP POC O2 Rate 12 POC FiO2 50 IPAP 14 Sodium Potassium Chloride Carbon Dioxide Anion Gap BUN Creatinine Est Cr Clr Drug Dosing Est GFR ( Amer) Est GFR (Non-Af Amer) BUN/Creatinine Ratio Glucose POC Glucose 77 105 H Estimat Average Glucose Hemoglobin A1c Lactate Calcium Phosphorus Magnesium Total Bilirubin Direct Bilirubin AST ALT Alkaline Phosphatase Total Creatine Kinase CK-MB (CK-2) CK/CKMB % Calc Troponin I Total Protein Albumin Lipase Procalcitonin TSH Urine Color Urine Appearance Urine pH Ur Specific [place] Urine Protein Urine Glucose (UA) Urine Ketones Urine Blood Urine Nitrite Urine Bilirubin Urine Urobilinogen Ur Leukocyte Esterase Urine WBC (Auto) Urine RBC (Auto) U Hyaline Cast (Auto) U Epithel Cells (Auto) Urine Bacteria (Auto) Ur Renal Epithelial Cell Granular Casts Nasal Screen MRSA (PCR) Random Vancomycin Lyme Disease IgG Ab Lyme Disease IgM Ab Hepatitis C Ab Screen Influenza Type A (PCR) Influenza Type B (PCR) 01/06/19 01/06/19 01/06/19 14:35 16:58 17:00 WBC RBC Hgb Hct MCV MCH MCHC RDW Std Deviation RDW Coeff of June Plt Count Immature Gran % (Auto) Neut % (Auto) Lymph % (Auto) [place] % (Auto) Eos % (Auto) Baso % (Auto) Immature Gran # (Auto) Neut # (Auto) Lymph # (Auto) [place] # (Auto) Eos # (Auto) Baso # (Auto) Neutrophils % (Manual) Lymphocytes % (Manual) Monocytes % (Manual) Neutrophils # (Manual) Total Absolute Neuts Lymphocytes # (Manual) Total Abs Lymphocytes Monocytes # (Manual) Toxic Vacuolation Dohle Bodies Platelet Estimate Giant Platelets Echinocytes Peripher Smr Path Cons PT INR Sample Site POC pH POC pCO2 POC pO2 POC HCO3 POC Total CO2 POC Base Excess POC ABG O2 Sat Emanuel Test O2 Delivery Device POC O2 Rate POC FiO2 IPAP Sodium Potassium Chloride Carbon Dioxide Anion Gap BUN Creatinine Est Cr Clr Drug Dosing Est GFR ( Amer) Est GFR (Non-Af Amer) BUN/Creatinine Ratio Glucose POC Glucose 71 Estimat Average Glucose Hemoglobin A1c Lactate Calcium Phosphorus Magnesium Total Bilirubin Direct Bilirubin AST ALT Alkaline Phosphatase Total Creatine Kinase CK-MB (CK-2) CK/CKMB % Calc Troponin I Total Protein Albumin Lipase Procalcitonin TSH Urine Color [place] Urine Appearance Turbid H Urine pH 5.0 Ur Specific [place] 1.021 Urine Protein 2+ H Urine Glucose (UA) Negative Urine Ketones Trace H Urine Blood 3+ H Urine Nitrite Negative Urine Bilirubin Negative Urine Urobilinogen Negative Ur Leukocyte Esterase Trace H Urine WBC (Auto) 10-30 H Urine RBC (Auto) >30 H U Hyaline Cast (Auto) 5-10 H U Epithel Cells (Auto) >30 H Urine Bacteria (Auto) Negative Ur Renal Epithelial Cell 0-5 Granular Casts 1-5 H Nasal Screen MRSA (PCR) Random Vancomycin Lyme Disease IgG Ab Lyme Disease IgM Ab Hepatitis C Ab Screen Influenza Type A (PCR) Neg for Influ A Influenza Type B (PCR) Neg for Influ B 01/06/19 01/06/19 01/06/19 18:08 18:08 18:19 WBC RBC Hgb Hct MCV MCH MCHC RDW Std Deviation RDW Coeff of June Plt Count Immature Gran % (Auto) Neut % (Auto) Lymph % (Auto) [place] % (Auto) Eos % (Auto) Baso % (Auto) Immature Gran # (Auto) Neut # (Auto) Lymph # (Auto) [place] # (Auto) Eos # (Auto) Baso # (Auto) Neutrophils % (Manual) Lymphocytes % (Manual) Monocytes % (Manual) Neutrophils # (Manual) Total Absolute Neuts Lymphocytes # (Manual) Total Abs Lymphocytes Monocytes # (Manual) Toxic Vacuolation Dohle Bodies Platelet Estimate Giant Platelets Echinocytes Peripher Smr Path Cons PT INR Sample Site POC pH POC pCO2 POC pO2 POC HCO3 POC Total CO2 POC Base Excess POC ABG O2 Sat Emanuel Test O2 Delivery Device POC O2 Rate POC FiO2 IPAP Sodium 135 L Potassium 3.6 D Chloride 103 Carbon Dioxide 20 L Anion Gap 12.0 H BUN 25 H Creatinine 1.74 H Est Cr Clr Drug Dosing 45.0 Est GFR ( Amer) 44.4 Est GFR (Non-Af Amer) 38.3 BUN/Creatinine Ratio 14.3 Glucose 83 POC Glucose Estimat Average Glucose Hemoglobin A1c Lactate 5.6 H* Calcium 8.1 L Phosphorus Magnesium Total Bilirubin Direct Bilirubin AST ALT Alkaline Phosphatase Total Creatine Kinase CK-MB (CK-2) CK/CKMB % Calc Troponin I Total Protein Albumin Lipase Procalcitonin TSH Urine Color Urine Appearance Urine pH Ur Specific [place] Urine Protein Urine Glucose (UA) Urine Ketones Urine Blood Urine Nitrite Urine Bilirubin Urine Urobilinogen Ur Leukocyte Esterase Urine WBC (Auto) Urine RBC (Auto) U Hyaline Cast (Auto) U Epithel Cells (Auto) Urine Bacteria (Auto) Ur Renal Epithelial Cell Granular Casts Nasal Screen MRSA (PCR) Random Vancomycin Lyme Disease IgG Ab Lyme Disease IgM Ab Hepatitis C Ab Screen Influenza Type A (PCR) Influenza Type B (PCR) 01/06/19 01/06/19 01/06/19 20:02 20:43 20:45 WBC RBC Hgb Hct MCV MCH MCHC RDW Std Deviation RDW Coeff of June Plt Count Immature Gran % (Auto) Neut % (Auto) Lymph % (Auto) [place] % (Auto) Eos % (Auto) Baso % (Auto) Immature Gran # (Auto) Neut # (Auto) Lymph # (Auto) [place] # (Auto) Eos # (Auto) Baso # (Auto) Neutrophils % (Manual) Lymphocytes % (Manual) Monocytes % (Manual) Neutrophils # (Manual) Total Absolute Neuts Lymphocytes # (Manual) Total Abs Lymphocytes Monocytes # (Manual) Toxic Vacuolation Dohle Bodies Platelet Estimate Giant Platelets Echinocytes Peripher Smr Path Cons PT INR Sample Site POC pH POC pCO2 POC pO2 POC HCO3 POC Total CO2 POC Base Excess POC ABG O2 Sat Emanuel Test O2 Delivery Device POC O2 Rate POC FiO2 IPAP Sodium Potassium Chloride Carbon Dioxide Anion Gap BUN Creatinine Est Cr Clr Drug Dosing Est GFR ( Amer) Est GFR (Non-Af Amer) BUN/Creatinine Ratio Glucose POC Glucose 60 L* 57 L* Estimat Average Glucose Hemoglobin A1c Lactate Calcium Phosphorus Magnesium Total Bilirubin Direct Bilirubin AST ALT Alkaline Phosphatase Total Creatine Kinase CK-MB (CK-2) CK/CKMB % Calc Troponin I Total Protein Albumin Lipase Procalcitonin TSH Urine Color Urine Appearance Urine pH Ur Specific [place] Urine Protein Urine Glucose (UA) Urine Ketones Urine Blood Urine Nitrite Urine Bilirubin Urine Urobilinogen Ur Leukocyte Esterase Urine WBC (Auto) Urine RBC (Auto) U Hyaline Cast (Auto) U Epithel Cells (Auto) Urine Bacteria (Auto) Ur Renal Epithelial Cell Granular Casts Nasal Screen MRSA (PCR) Random Vancomycin Lyme Disease IgG Ab Negative Lyme Disease IgM Ab Negative Hepatitis C Ab Screen Influenza Type A (PCR) Influenza Type B (PCR) 01/06/19 01/06/19 01/07/19 20:59 23:51 00:20 WBC RBC Hgb Hct MCV MCH MCHC RDW Std Deviation RDW Coeff of June Plt Count Immature Gran % (Auto) Neut % (Auto) Lymph % (Auto) [place] % (Auto) Eos % (Auto) Baso % (Auto) Immature Gran # (Auto) Neut # (Auto) Lymph # (Auto) [place] # (Auto) Eos # (Auto) Baso # (Auto) Neutrophils % (Manual) Lymphocytes % (Manual) Monocytes % (Manual) Neutrophils # (Manual) Total Absolute Neuts Lymphocytes # (Manual) Total Abs Lymphocytes Monocytes # (Manual) Toxic Vacuolation Dohle Bodies Platelet Estimate Giant Platelets Echinocytes Peripher Smr Path Cons PT INR Sample Site POC pH POC pCO2 POC pO2 POC HCO3 POC Total CO2 POC Base Excess POC ABG O2 Sat Emanuel Test O2 Delivery Device POC O2 Rate POC FiO2 IPAP Sodium Potassium Chloride Carbon Dioxide Anion Gap BUN Creatinine Est Cr Clr Drug Dosing Est GFR ( Amer) Est GFR (Non-Af Amer) BUN/Creatinine Ratio Glucose POC Glucose 104 H 89 Estimat Average Glucose Hemoglobin A1c Lactate 5.7 H* Calcium Phosphorus Magnesium Total Bilirubin Direct Bilirubin AST ALT Alkaline Phosphatase Total Creatine Kinase CK-MB (CK-2) CK/CKMB % Calc Troponin I Total Protein Albumin Lipase Procalcitonin TSH Urine Color Urine Appearance Urine pH Ur Specific [place] Urine Protein Urine Glucose (UA) Urine Ketones Urine Blood Urine Nitrite Urine Bilirubin Urine Urobilinogen Ur Leukocyte Esterase Urine WBC (Auto) Urine RBC (Auto) U Hyaline Cast (Auto) U Epithel Cells (Auto) Urine Bacteria (Auto) Ur Renal Epithelial Cell Granular Casts Nasal Screen MRSA (PCR) Random Vancomycin Lyme Disease IgG Ab Lyme Disease IgM Ab Hepatitis C Ab Screen Influenza Type A (PCR) Influenza Type B (PCR) 01/07/19 01/07/19 01/07/19 00:20 00:20 04:15 WBC 5.57 RBC 4.36 L Hgb 13.7 L Hct 37.5 L MCV 86.0 MCH 31.4 MCHC 36.5 H RDW Std Deviation 41.3 RDW Coeff of June 13.0 Plt Count 26 L* Immature Gran % (Auto) Neut % (Auto) Lymph % (Auto) [place] % (Auto) Eos % (Auto) Baso % (Auto) Immature Gran # (Auto) Neut # (Auto) Lymph # (Auto) [place] # (Auto) Eos # (Auto) Baso # (Auto) Neutrophils % (Manual) 92.0 Lymphocytes % (Manual) 7.0 Monocytes % (Manual) 1.0 Neutrophils # (Manual) 5.12 Total Absolute Neuts 5.12 Lymphocytes # (Manual) 0.39 L Total Abs Lymphocytes 0.39 L Monocytes # (Manual) 0.06 L Toxic Vacuolation 3+ Dohle Bodies Platelet Estimate Giant Platelets 3+ Echinocytes 3+ Peripher Smr Path Cons PT INR Sample Site POC pH POC pCO2 POC pO2 POC HCO3 POC Total CO2 POC Base Excess POC ABG O2 Sat Emanuel Test O2 Delivery Device POC O2 Rate POC FiO2 IPAP Sodium 136 136 Potassium 4.2 D 3.6 Chloride 106 105 Carbon Dioxide 16 L 21 Anion Gap 14.0 H 10.0 BUN 29 H 30 H Creatinine 2.22 H D 2.20 H Est Cr Clr Drug Dosing 35.3 35.6 Est GFR ( Amer) 33.1 33.4 Est GFR (Non-Af Amer) 28.5 28.9 BUN/Creatinine Ratio 13.2 13.8 Glucose 110 H 116 H POC Glucose Estimat Average Glucose Hemoglobin A1c Lactate Calcium 8.1 L 8.1 L Phosphorus 2.1 L Magnesium 2.0 Total Bilirubin 3.6 H Direct Bilirubin 2.1 H AST 266 H ALT 99 H Alkaline Phosphatase 64 Total Creatine Kinase 725 H CK-MB (CK-2) CK/CKMB % Calc Troponin I 0.106 H* 0.123 H* Total Protein 5.4 L Albumin 2.3 L Lipase Procalcitonin TSH 1.830 Urine Color Urine Appearance Urine pH Ur Specific [place] Urine Protein Urine Glucose (UA) Urine Ketones Urine Blood Urine Nitrite Urine Bilirubin Urine Urobilinogen Ur Leukocyte Esterase Urine WBC (Auto) Urine RBC (Auto) U Hyaline Cast (Auto) U Epithel Cells (Auto) Urine Bacteria (Auto) Ur Renal Epithelial Cell Granular Casts Nasal Screen MRSA (PCR) Random Vancomycin Lyme Disease IgG Ab Lyme Disease IgM Ab Hepatitis C Ab Screen Influenza Type A (PCR) Influenza Type B (PCR) 01/07/19 01/07/19 01/07/19 04:15 04:15 04:15 WBC RBC Hgb Hct MCV MCH MCHC RDW Std Deviation RDW Coeff of June Plt Count Immature Gran % (Auto) Neut % (Auto) Lymph % (Auto) [place] % (Auto) Eos % (Auto) Baso % (Auto) Immature Gran # (Auto) Neut # (Auto) Lymph # (Auto) [place] # (Auto) Eos # (Auto) Baso # (Auto) Neutrophils % (Manual) Lymphocytes % (Manual) Monocytes % (Manual) Neutrophils # (Manual) Total Absolute Neuts Lymphocytes # (Manual) Total Abs Lymphocytes Monocytes # (Manual) Toxic Vacuolation Dohle Bodies Platelet Estimate Giant Platelets Echinocytes Peripher Smr Path Cons PT INR Sample Site POC pH POC pCO2 POC pO2 POC HCO3 POC Total CO2 POC Base Excess POC ABG O2 Sat Emanuel Test O2 Delivery Device POC O2 Rate POC FiO2 IPAP Sodium Potassium Chloride Carbon Dioxide Anion Gap BUN Creatinine Est Cr Clr Drug Dosing Est GFR ( Amer) Est GFR (Non-Af Amer) BUN/Creatinine Ratio Glucose POC Glucose Estimat Average Glucose 134 Hemoglobin A1c 6.3 H Lactate 4.3 H* Calcium Phosphorus Magnesium Total Bilirubin Direct Bilirubin AST ALT Alkaline Phosphatase Total Creatine Kinase CK-MB (CK-2) CK/CKMB % Calc Troponin I Total Protein Albumin Lipase Procalcitonin TSH Urine Color Urine Appearance Urine pH Ur Specific [place] Urine Protein Urine Glucose (UA) Urine Ketones Urine Blood Urine Nitrite Urine Bilirubin Urine Urobilinogen Ur Leukocyte Esterase Urine WBC (Auto) Urine RBC (Auto) U Hyaline Cast (Auto) U Epithel Cells (Auto) Urine Bacteria (Auto) Ur Renal Epithelial Cell Granular Casts Nasal Screen MRSA (PCR) Random Vancomycin 25.2 Lyme Disease IgG Ab Lyme Disease IgM Ab Hepatitis C Ab Screen Influenza Type A (PCR) Influenza Type B (PCR) 01/07/19 01/07/19 01/07/19 04:15 04:15 04:15 WBC 4.38 L RBC 4.33 L Hgb 13.4 L Hct 37.2 L MCV 85.9 MCH 30.9 MCHC 36.0 RDW Std Deviation 41.5 RDW Coeff of June 13.1 Plt Count 25 L* Immature Gran % (Auto) 4.6 Neut % (Auto) 79.9 Lymph % (Auto) 9.1 [place] % (Auto) 4.3 Eos % (Auto) 0.5 Baso % (Auto) 1.6 Immature Gran # (Auto) 0.20 H Neut # (Auto) 3.50 Lymph # (Auto) 0.40 L [place] # (Auto) 0.19 Eos # (Auto) 0.02 Baso # (Auto) 0.07 Neutrophils % (Manual) Lymphocytes % (Manual) Monocytes % (Manual) Neutrophils # (Manual) Total Absolute Neuts Lymphocytes # (Manual) Total Abs Lymphocytes Monocytes # (Manual) Toxic Vacuolation 1+ Dohle Bodies Platelet Estimate Giant Platelets 2+ Echinocytes 2+ Peripher Smr Path Cons PT 11.6 INR 1.1 Sample Site POC pH POC pCO2 POC pO2 POC HCO3 POC Total CO2 POC Base Excess POC ABG O2 Sat Emanuel Test O2 Delivery Device POC O2 Rate POC FiO2 IPAP Sodium Potassium Chloride Carbon Dioxide Anion Gap BUN Creatinine Est Cr Clr Drug Dosing Est GFR ( Amer) Est GFR (Non-Af Amer) BUN/Creatinine Ratio Glucose POC Glucose Estimat Average Glucose Hemoglobin A1c Lactate Calcium Phosphorus Magnesium Total Bilirubin Direct Bilirubin AST ALT Alkaline Phosphatase Total Creatine Kinase CK-MB (CK-2) CK/CKMB % Calc Troponin I Total Protein Albumin Lipase Procalcitonin 25.70 H TSH Urine Color Urine Appearance Urine pH Ur Specific [place] Urine Protein Urine Glucose (UA) Urine Ketones Urine Blood Urine Nitrite Urine Bilirubin Urine Urobilinogen Ur Leukocyte Esterase Urine WBC (Auto) Urine RBC (Auto) U Hyaline Cast (Auto) U Epithel Cells (Auto) Urine Bacteria (Auto) Ur Renal Epithelial Cell Granular Casts Nasal Screen MRSA (PCR) Random Vancomycin Lyme Disease IgG Ab Lyme Disease IgM Ab Hepatitis C Ab Screen Influenza Type A (PCR) Influenza Type B (PCR) 01/07/19 01/07/19 04:15 06:41 WBC RBC Hgb Hct MCV MCH MCHC RDW Std Deviation RDW Coeff of June Plt Count Immature Gran % (Auto) Neut % (Auto) Lymph % (Auto) [place] % (Auto) Eos % (Auto) Baso % (Auto) Immature Gran # (Auto) Neut # (Auto) Lymph # (Auto) [place] # (Auto) Eos # (Auto) Baso # (Auto) Neutrophils % (Manual) Lymphocytes % (Manual) Monocytes % (Manual) Neutrophils # (Manual) Total Absolute Neuts Lymphocytes # (Manual) Total Abs Lymphocytes Monocytes # (Manual) Toxic Vacuolation Dohle Bodies Platelet Estimate Giant Platelets Echinocytes Peripher Smr Path Cons PT INR Sample Site POC pH POC pCO2 POC pO2 POC HCO3 POC Total CO2 POC Base Excess POC ABG O2 Sat Emanuel Test O2 Delivery Device POC O2 Rate POC FiO2 IPAP Sodium Potassium Chloride Carbon Dioxide Anion Gap BUN Creatinine Est Cr Clr Drug Dosing Est GFR ( Amer) Est GFR (Non-Af Amer) BUN/Creatinine Ratio Glucose POC Glucose 114 H Estimat Average Glucose Hemoglobin A1c Lactate Calcium Phosphorus Magnesium Total Bilirubin Direct Bilirubin AST ALT Alkaline Phosphatase Total Creatine Kinase CK-MB (CK-2) CK/CKMB % Calc Troponin I Total Protein Albumin Lipase 5308 H Procalcitonin TSH Urine Color Urine Appearance Urine pH Ur Specific [place] Urine Protein Urine Glucose (UA) Urine Ketones Urine Blood Urine Nitrite Urine Bilirubin Urine Urobilinogen Ur Leukocyte Esterase Urine WBC (Auto) Urine RBC (Auto) U Hyaline Cast (Auto) U Epithel Cells (Auto) Urine Bacteria (Auto) Ur Renal Epithelial Cell Granular Casts Nasal Screen MRSA (PCR) Random Vancomycin Lyme Disease IgG Ab Lyme Disease IgM Ab Hepatitis C Ab Screen Influenza Type A (PCR) Influenza Type B (PCR) Perpheral smear The clinical history (fever, elevated transaminases, transferred from [facility]), peripheral smear, CellaVision and associated CBC are reviewed. The smear shows normochromic, normocytic appearing erythrocytes without anisopoikilocytosis. Leukocytes are decreased in number with increased band forms. Neutrophils show toxic granulation and vacuoles. 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 Platelets appear decreased in number and are morphologically unremarkable. I do not see any significant number of platelet clumps resulting in an artifactual thrombocytopenia. The associated CBC shows WBC 3.8, HGB 13.7 and 25,000 platelets. ALT and AST are increased. 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 Kenney Do M.D.
[2019-01-07] MEDS ORDERED: HALOPERIDOL LACTATE 5 MG/ML 1 ML VIAL IV STA (11:45)
[2019-01-07] MEDS ORDERED: HALOPERIDOL LACTATE 5 MG/ML 1 ML VIAL ONE (11:45)
[2019-01-07] MEDS ORDERED: HALOPERIDOL LACTATE 5 MG/ML 1 ML VIAL IV PRN (12:12)
[2019-01-07 14:01] LABS: iSTAT Arterial Blood Gas HCO3 15 meg/L (19-24); iSTAT Arterial Blood Gas pCO2 25 mmHg (35-46); iSTAT Arterial Blood Gas pH 7.37 (7.35-7.45); iSTAT Carbon Dioxide 15 mEq/l (24-31); iSTAT FiO2 50 %; iSTAT Site R Brachial
[2019-01-07] MEDS ORDERED: LACTATED RINGER'S 1,000 ML IV ONE ×2 (14:30→16:18)
[2019-01-07 14:34] LABS: BUN Creatinine Ratio 14.8 (10-20); Calcium 8.4 mg/dl (8.5-10.1); Creatinine Clr Calc Pharmacy 31.2 ml/min; Est GFR (African American) 27.6; Est GFR (Non-African American) 23.8; Magnesium 2.3 mg/dl (1.8-2.4); Potassium 3.6 mmol/L (3.5-5.1)
[2019-01-07 14:44] LABS: Hematocrit (blood only) 34.4 % (42-52); Hemoglobin 12.5 g/dL (14.0-18.0); Mean Corpuscular Hgb Conc 36.3 g/dL (32-36); Mean Corpuscular Volume 86.6 fL (80-100); RDW Coefficient of Variation 13.2 % (11.5-14.5); RDW Standard Deviation 42.1 fL (36.4-46.3); Red Blood Count 3.97 M/uL (4.7-6.1); White Blood Count 4.53 K/uL (4.8-10.8)
[2019-01-07] MEDS ORDERED: LORazepam 1 MG/2 ML VIAL IV PRN (14:44)
[2019-01-07 14:52] LABS: Mean Platelet Volume 13.9 fL (7.4-10.4); Platelet Count 25 K/uL (130-400)
[2019-01-07] MEDS: NOREPINEPHRINE BIT INJ 8 MG in DEXTROSE 5% 500 ML IV SCH (15:14)
[2019-01-07 15:44] LABS: Basophils # (manual) 0.04 K/uL (0-0.2); Basophils % (manual) 0.9 %; Echinocytes 2+; Eosinophils # (manual) 0.08 K/uL (0-0.5); Eosinophils % (manual) 1.8 %; Lymphocytes # (manual) 0.45 K/uL (1.2-3.4); Lymphocytes % (manual) 9.9 %; Monocytes % (manual) 4.5 %; Reactive Lymphocytes # (manual) 0.45 K/uL; Toxic Vacuolation 1+
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
--- NOTE | 2019-01-07 16:18 | Procedure Note ---
Procedure Note Date of Service January 07, 2019 after informed consent using full sterile precautions - cap, mask, gown and gloves. full drape site anesthetized with 1% lidocaine using landmarks the R subclavian was cannulated and using seldinger technique 20 cm triple catheter was placed good flow in both ports placement confirmed on CXR
--- NOTE | 2019-01-07 16:49 | XRay Report ---
XR chest 1V portable HISTORY: 73 years-old Male Placement of right SC CVC status post placement of a right subclavian bianca tral venous catheter COMPARISON: Chest radiograph 01/07/2019 TECHNIQUE: Portable AP view of the chest FINDINGS: Cardiac silhouette is enlarged, unchanged. Calcification of the thoracic aortic arch. Pulmonary vascu lar congestion with mild interstitial coarsening are demonstrated. Small pleural effusions with bibas ilar opacities. Status post placement of a right subclavian central venous catheter, distal tip termi nating in the expected location of the inferior SVC. No postprocedural pneumothorax. Degenerative tamara nges of the shoulders and spine. IMPRESSION: 1. Status post placement of a right subclavian central venous catheter, distal tip terminating in the expected location of the inferior SVC. No postprocedural pneumothorax. 2. Cardiomegaly with mild pulmonary edema. 3. Small bilateral pleural effusions with bibasilar opacities suggestive of probable atelectasis. The above report was generated using voice recognition software. It may contain grammatical, syntax o r spelling errors. Electronically signed by: Cole De La Fuente M.D. 01/07/2019 4:47 PM
[2019-01-07 16:52] LABS: iSTAT Allen Test Pass; iSTAT Arterial Blood Gas HCO3 17 meg/L (19-24); iSTAT Arterial Blood Gas pCO2 39 mmHg (35-46); iSTAT Arterial Blood Gas pH 7.24 (7.35-7.45); iSTAT Carbon Dioxide 18 mEq/l (24-31); iSTAT FiO2 50 %; iSTAT Site R Brachial
[2019-01-07 17:53] LABS: Base Excess VBG -6.8 mEq/L; pH VBG 7.25 (7.36-7.41)
--- NOTE | 2019-01-07 20:10 | Procedure Note ---
Procedure Note Date of Service January 07, 2019 Procedure: Arterial Line Placement Attending: Dr. Mas APC: Clement Galvin PA-C Indication: Monitoring on Pressors Anesthesia: Lidocaine 1% Emergent consent implied given need for close BP monitoring while on pressors and need for frequent ABG draws in the thrombocytopenic patient. A time-out was completed verifying correct patient, procedure, site, positioning, and implant(s) or special equipment if applicable. Allens test was performed to ensure adequate perfusion. Patients LEFT wrist was prepped and draped in the usual sterile fashion. Ultrasound guidance was used to aid needle placement. A 20g Arrow arterial line was introduced into the LEFT Radial artery. Catheter was threaded, and the needle was removed with appropriate blood return. Good waveform was observed. The patient tolerated the procedure well. Confirmation of placement with ultrasound. Blood Loss: Minimal Complications: None Procedural Ultrasound Guidance: Procedure Date: 01/07/2019 Indication: Pressors, ABGs Attending: Dr. Mas APC: Clement Galvin PA-C Artery Identified: YES Line confirmed in Artery with ultrasound: YES Complications: NONE Patient tolerated procedure: WELL
[2019-01-07 21:10] LABS: iSTAT Arterial Blood Gas HCO3 19 meg/L (19-24); iSTAT Arterial Blood Gas pCO2 49 mmHg (35-46); iSTAT Arterial Blood Gas pH 7.21 (7.35-7.45); iSTAT Carbon Dioxide 21 mEq/l (24-31); iSTAT FiO2 76 %; iSTAT Site Art Line
[2019-01-07] MEDS ORDERED: LORazepam 0.5 MG/1 ML VIAL IV PRN (21:13)
[2019-01-07] MEDS ORDERED: RAPID SEQUENCE INDUCTION BAG ONE (23:19)
[2019-01-07 23:25] LABS: iSTAT Arterial Blood Gas HCO3 20 meg/L (19-24); iSTAT Arterial Blood Gas pCO2 48 mmHg (35-46); iSTAT Arterial Blood Gas pH 7.23 (7.35-7.45); iSTAT Carbon Dioxide 21 mEq/l (24-31); iSTAT FiO2 100 %; iSTAT Site Art Line
--- NOTE | 2019-01-07 23:43 | Procedure Note ---
Procedure Note Date of Service January 07, 2019 APC: Clement Galvin PA-C. Attending: Dr. Mas A time-out was completed verifying correct patient, procedure, site, positioning. Patient was evaluated and required intubation for acute respiratory failure. Sedative agent used: Etomidate, Versed Paralysis agent used: None Emergent consent was implied given patients rapidly declining clinical status and need for airway protection. The patient was prepared in the appropriate fashion. Sedation was achieved utilizing Etomidate and Versed, per Dr. Estevez administration. The patient was easily ventilated using [id number] to achieve adequate oxygenation. A 7.5 [place] endotracheal tube was placed under Direct Glidescope Visualization to 26 cm at the lip. The stylette was removed and balloon was inflated with 10mL of air. Appropriate Colorimetric change was appreciated. Bilateral breath sounds were heard without air sounds in the abdomen. Dr. Estevez was present for the entire procedure. Post Intubation Chest X-ray confirms placement without pneumothorax. Patient tolerated the procedure well and there were no immediate complications.
[2019-01-07] MEDS: PROPOFOL 1,000 MG/100 ML VIAL IV PRN (23:50)
--- NOTE | 2019-01-07 23:59 | Emergency Department Note ---
ED Visit Note Endotracheal Intubation assist to Clement Galvin PA-C Indication altered mental status and respiratory distress. The patient was on 100% oxygen via NRB prior to the procedure. Suction, airway equipment, RSI drugs, respiratory equipment, and appropriate personnel were prepared prior to the initiation of the procedure. A time out was taken. Induction was performed with etomidate 25 mg. After observing the clinical benefit of the medications, the airway was easily visualized utilizing a glide scope. A 7.5 size ETT tube was placed atraumatically to 24 cm using standard technique. The cuff inflated without signs of malfunction. There were bilateral breath sounds, positive colormetric change, no gastric sounds, a good capnography waveform, and post procedure pulse oximetry was 95 %. Post intubation sedation and paralysis was administered using propofol drip. There were no complications. .
[2019-01-08] MEDS ORDERED: NORMOSOL-R 500 ML IV ONE
[2019-01-08 01:10] LABS: iSTAT Arterial Blood Gas HCO3 19 meg/L (19-24); iSTAT Arterial Blood Gas pCO2 42 mmHg (35-46); iSTAT Arterial Blood Gas pH 7.27 (7.35-7.45); iSTAT Carbon Dioxide 20 mEq/l (24-31); iSTAT FiO2 100 %; iSTAT Site Art Line
[2019-01-08] MEDS: D5W NORMOSOL-R 1,000 ML IV SCH ×3 (01:39→19:42)
--- NOTE | 2019-01-08 03:53 | Critical Care Progress Note ---
Date of Service January 07, 2019 Subjective This note reflects care provided on the date 01/07/2019. Patient was initially on high flow at the time of change of shift with stable oxygen saturations, however his mental status had seemed to somewhat decline with poor respiratory effort. Patient was then transitioned to BiPAP. Approximately 2 hours after BiPAP, the patient had a repeat ABG which showed no significant change from baseline. Throughout the evening, patient showed persistent decline in oxygen saturation and poor inspiratory effort on close monitoring. A repeat ABG showed worsening respiratory acidosis with CO2 accumulation. At this point, decision was made to proceed with endotracheal i ntubation. Please see attached note. Patient has not required vasopressors for some time. He was sedated with propofol. I have personally spent 45 minutes of critical care time in the direct man agement of this patient. This is a life/limb threatening event. This includes time spent evaluating patient, direct bedside care, chart review, placing orders, interpretation of diagnostic studies, discussion with consultants, patient, and family members, as well as other required patient management activities. This time is exclusive of all separately billable procedures, and teaching time and separate from and in addition to any other critical care service time. Physical Exam Vital Signs (Past 24 Hours): Last Vital Signs Temp 36.8 C 01/07/19 18:00 Pulse 103 H 01/08/19 02:30 Resp 32 H 01/08/19 02:27 BP 86/63 L 01/08/19 01:30 Pulse Ox 99 01/08/19 02:30
[2019-01-08] MEDS: PIPERACILLIN/TAZOBACTAM 3.375 GM in DEXTROSE 5% 100 ML IV SCH ×3 (05:12→20:58)
[2019-01-08 05:58] LABS: iSTAT Arterial Blood Gas HCO3 18 meg/L (19-24); iSTAT Arterial Blood Gas pCO2 34 mmHg (35-46); iSTAT Arterial Blood Gas pH 7.35 (7.35-7.45); iSTAT Carbon Dioxide 19 mEq/l (24-31); iSTAT FiO2 70 %; iSTAT Site Art Line
[2019-01-08 06:01] LABS: Albumin Level 1.9 gm/dl (3.4-5.0); BUN Creatinine Ratio 14.3 (10-20); Bilirubin Direct 2.8 mg/dl (0-0.2); Calcium 7.8 mg/dl (8.5-10.1); Est GFR (African American) 23.2; Magnesium 2.4 mg/dl (1.8-2.4); Potassium 3.5 mmol/L (3.5-5.1)
--- NOTE | 2019-01-08 06:14 | XRay Report ---
XR chest 1V portable HISTORY: 73 years-old Male post intubation acute respiratory failure COMPARISON: Chest radiograph of same day at 3:57 PM TECHNIQUE: Portable AP view of the chest FINDINGS: Endotracheal tube terminates 4.7 cm superior to the aki. An enteric tube is noted, distal tip term inating below the level of the diaphragm. Stable positioning of the right subclavian central venous c atheter. Cardiac silhouette is enlarged. Mild pulmonary edema with trace pleural effusions and bibasi lar opacities redemonstrated. Degenerative changes of the shoulders and spine. IMPRESSION: 1. Endotracheal tube terminates 4.7 cm superior to the aki. 2. Enteric tube distal tip courses below the diaphragm outside the [id number]. 3. Cardiomegaly with mild pulmonary edema and trace pleural effusions. The above report was generated using voice recognition software. It may contain grammatical, syntax o r spelling errors. Electronically signed by: Cole De La Fuente M.D. 01/08/2019 6:12 AM
[2019-01-08 06:15] LABS: Bilirubin,Total 3.9 mg/dl (0.2-1); Phosphorus 2.6 mg/dl (2.5-4.9); Total Protein 4.8 gm/dl (6.4-8.2); Troponin I 0.126 ng/ml (0-0.045)
[2019-01-08 06:33] LABS: Hematocrit (blood only) 33.2 % (42-52); Mean Corpuscular Hgb Conc 36.1 g/dL (32-36); Mean Corpuscular Volume 86.5 fL (80-100); Mean Platelet Volume 12.2 fL (7.4-10.4); Platelet Count 29 K/uL (130-400); RDW Coefficient of Variation 13.6 % (11.5-14.5); RDW Standard Deviation 43.1 fL (36.4-46.3); Red Blood Count 3.84 M/uL (4.7-6.1); White Blood Count 6.95 K/uL (4.8-10.8)
[2019-01-08] MEDS: INSULIN ASPART 100 UNITS/ML 3 ML PEN SC SCH ×4 (06:38→17:18)
[2019-01-08 06:58] LABS: ALC (manual) 2.91 K/uL (1.2-3.4); Echinocytes 1+; Eosinophils # (manual) 0.19 K/uL (0-0.5); Eosinophils % (manual) 2.7 %; Neutrophils % (manual) 55.5 %; Reactive Lymphocytes # (manual) 2.21 K/uL; Toxic Vacuolation 1+
--- NOTE | 2019-01-08 07:13 | XRay Report ---
XR chest 1V portable HISTORY: 73 years-old Male f/u acute respiratory failure COMPARISON: Chest radiograph 01/07/2019 TECHNIQUE: Portable AP view of the chest FINDINGS: Endotracheal tube overlies the midline, 4.4 cm superior to the aki. Enteric tube is noted with dis andrea tip terminating below the diaphragm. Stable positioning of the right subclavian central venous ca theter. Pulmonary edema with trace pleural effusions and left basilar opacities redemonstrated. Degen erative changes of the shoulders and spine. Cardiomegaly. IMPRESSION: 1. Endotracheal tube terminates 4.4 cm superior to the aki. 2. Cardiomegaly with persistent pulmonary edema and trace pleural effusions. The above report was generated using voice recognition software. It may contain grammatical, syntax o r spelling errors. Electronically signed by: Cole De La Fuente M.D. 01/08/2019 7:11 AM
--- NOTE | 2019-01-08 07:53 | Critical Care Progress Note ---
Date of Service January 08, 2019 Assessment & Plan (1) Acute respiratory failure with hypoxia: Neuro-confusion and delirium due to metabolic encephalopathy due to sepsis. now on propofol on vent CV- HD stable now had required pressors yesterday and overnight but now off. aspirin/clopidogrel(held with platelets), statin,. echo EF 55-60% Pulmonary- acute hypoxic respiratory failure atelectasis. intubated last night with worsening respiratory and mental status. continue vent support ID- sepsis with evidence of end organ dysfunction due anaplasmosis on doxycycline. abx for possible aspiration pneumonia Renal- acute renal failure. likely ATN. cr worsening. UOP 895 in 24 hours GI- will start tube feeds if cant extubate today. pancreatitis. pantoprazole Heme- thrombocytopenia due to anaplasmosis. watch for bleeding. SCD proph Endocrine- blood sugars controlled Dispo- continue ICU care for neuro monitoring and respiratory support I have personally spent 60 minutes of critical care time in the direct management of this patient. This is a life/limb threatening event. This includes time spent evaluating patient, direct bedside care, chart review, placing orders, interpretation of diagnostic studies, discussion with consultants, patient, and/or family members regarding treatment decisions, as well as other required patient management activities. This time is exclusive of all separately billable procedures, and teaching time and separate from and in addition to any other critical care service time. Subjective yesterday with worsening hypotension requiring central line and vasopressors worsening respiratory status requiring intubation Physical Exam Vital Signs (Past 24 Hours): Last Vital Signs Temp 36.8 C 01/07/19 18:00 Pulse 103 H 01/08/19 06:01 Resp 28 H 01/08/19 04:58 BP 147/81 H 01/08/19 06:01 Pulse Ox 96 01/08/19 06:00 Physical Exam: Constitutional: Comfortable NAD on vent HEENT: normocephalic atraumatic. MMM. CV: RRR nl s1,s2 no murmurs rubs or gallops Lungs: crackles bilaterally. no accessory muscle use Abd: soft nontender nondistended. normal bowel sounds Ext: no edema. no cyanosis, no clubbing Skin: warm dry Neuro: sedated Psych: sedated Results & Data Laboratory Results Laboratory Results - last 24 hr 01/06/19 01/07/19 01/07/19 18:19 11:38 13:48 WBC RBC Hgb Hct MCV MCH MCHC RDW Std Deviation RDW Coeff of June Plt Count MPV Neutrophils % (Manual) Lymphocytes % (Manual) Reactive Lymphs % (Man) Monocytes % (Manual) Eosinophils % (Manual) Basophils % (Manual) Neutrophils # (Manual) Total Absolute Neuts Lymphocytes # (Manual) Reactive Lymphs # Total Abs Lymphocytes Monocytes # (Manual) Eosinophils # (Manual) Basophils # (Manual) Toxic Vacuolation Echinocytes Peripher Smr Path Cons Sample Site R Brachial POC pH 7.37 POC pCO2 25 L POC pO2 58 L POC HCO3 15 L POC Total CO2 15 L POC Base Excess -11.0 L POC ABG O2 Sat 90.0 Emanuel Test NA VBG pH VBG pCO2 VBG pO2 VBG HCO3 VBG O2 Saturation VBG Base Excess Barometric Pressure O2 Delivery Device Hi Ruben Can POC O2 Rate Minute Ventilation POC FiO2 50 Tidal Volume PEEP Sodium Potassium Chloride Carbon Dioxide Anion Gap BUN Creatinine Est Cr Clr Drug Dosing Est GFR ( Amer) Est GFR (Non-Af Amer) BUN/Creatinine Ratio Glucose POC Glucose 133 H Lactate Calcium Phosphorus Magnesium Total Bilirubin Direct Bilirubin AST ALT Alkaline Phosphatase Total Creatine Kinase Troponin I Total Protein Albumin Lipase Procalcitonin 01/07/19 01/07/19 01/07/19 14:08 14:08 14:08 WBC 4.53 L RBC 3.97 L Hgb 12.5 L Hct 34.4 L MCV 86.6 MCH 31.5 MCHC 36.3 H RDW Std Deviation 42.1 RDW Coeff of June 13.2 Plt Count 25 L* MPV 13.9 H Neutrophils % (Manual) 73.0 Lymphocytes % (Manual) 9.9 Reactive Lymphs % (Man) 9.9 Monocytes % (Manual) 4.5 Eosinophils % (Manual) 1.8 Basophils % (Manual) 0.9 Neutrophils # (Manual) 3.31 Total Absolute Neuts 3.31 Lymphocytes # (Manual) 0.45 L Reactive Lymphs # 0.45 Total Abs Lymphocytes 0.90 L Monocytes # (Manual) 0.20 Eosinophils # (Manual) 0.08 Basophils # (Manual) 0.04 Toxic Vacuolation 1+ Echinocytes 2+ Peripher [facility] Path Cons Sample Site POC pH POC pCO2 POC pO2 POC HCO3 POC Total CO2 POC Base Excess POC ABG O2 Sat Emanuel Test VBG pH VBG pCO2 VBG pO2 VBG HCO3 VBG O2 Saturation VBG Base Excess Barometric Pressure O2 Delivery Device POC O2 Rate Minute Ventilation POC FiO2 Tidal Volume PEEP Sodium Potassium Chloride Carbon Dioxide Anion Gap BUN Creatinine Est Cr Clr Drug Dosing Est GFR ( Amer) Est GFR (Non-Af Amer) BUN/Creatinine Ratio Glucose POC Glucose Lactate 3.9 H* Calcium Phosphorus Magnesium Cancelled Total Bilirubin Direct Bilirubin AST ALT Alkaline Phosphatase Total Creatine Kinase Troponin I Total Protein Albumin Lipase Procalcitonin 01/07/19 01/07/19 01/07/19 14:08 16:11 16:36 WBC RBC Hgb Hct MCV MCH MCHC RDW Std Deviation RDW Coeff of June Plt Count MPV Neutrophils % (Manual) Lymphocytes % (Manual) Reactive Lymphs % (Man) Monocytes % (Manual) Eosinophils % (Manual) Basophils % (Manual) Neutrophils # (Manual) Total Absolute Neuts Lymphocytes # (Manual) Reactive Lymphs # Total Abs Lymphocytes Monocytes # (Manual) Eosinophils # (Manual) Basophils # (Manual) Toxic Vacuolation Echinocytes Peripher Smr Path Cons Sample Site R Brachial POC pH 7.24 L POC pCO2 39 POC pO2 73 L POC HCO3 17 L POC Total CO2 18 L POC Base Excess -11.0 L POC ABG O2 Sat 91.0 Emanuel Test Pass VBG pH VBG pCO2 VBG pO2 VBG HCO3 VBG O2 Saturation VBG Base Excess Barometric Pressure O2 Delivery Device Hi Ruben Can POC O2 Rate Minute Ventilation POC FiO2 50 Tidal Volume PEEP Sodium 136 Potassium 3.6 Chloride 104 Carbon Dioxide 22 Anion Gap 10.0 BUN 38 H Creatinine 2.58 H D Est Cr Clr Drug Dosing 31.2 Est GFR ( Amer) 27.6 Est GFR (Non-Af Amer) 23.8 BUN/Creatinine Ratio 14.8 Glucose 104 H POC Glucose 113 H Lactate Calcium 8.4 L Phosphorus Magnesium 2.3 Total Bilirubin Direct Bilirubin AST ALT Alkaline Phosphatase Total Creatine Kinase Troponin I Total Protein Albumin Lipase Procalcitonin 01/07/19 01/07/19 01/07/19 17:06 20:57 23:11 WBC RBC Hgb Hct MCV MCH MCHC RDW Std Deviation RDW Coeff of June Plt Count MPV Neutrophils % (Manual) Lymphocytes % (Manual) Reactive Lymphs % (Man) Monocytes % (Manual) Eosinophils % (Manual) Basophils % (Manual) Neutrophils # (Manual) Total Absolute Neuts Lymphocytes # (Manual) Reactive Lymphs # Total Abs Lymphocytes Monocytes # (Manual) Eosinophils # (Manual) Basophils # (Manual) Toxic Vacuolation Echinocytes Peripher [facility] Path Cons Sample Site Art Line Art Line POC pH 7.21 L 7.23 L POC pCO2 49 H 48 H POC pO2 59 L 124 H POC HCO3 19 20 POC Total CO2 21 L 21 L POC Base Excess -9.0 -8.0 POC ABG O2 Sat 84.0 L 98.0 H Emanuel Test NA NA VBG pH 7.25 L VBG pCO2 47 VBG pO2 43 VBG HCO3 20 VBG O2 Saturation 70.0 VBG Base Excess -6.8 Barometric Pressure 737.4 O2 Delivery Device Hi Ruben Can BIPAP POC O2 Rate Minute Ventilation POC FiO2 76 100 Tidal Volume PEEP Sodium Potassium Chloride Carbon Dioxide Anion Gap BUN Creatinine Est Cr Clr Drug Dosing Est GFR ( Amer) Est GFR (Non-Af Amer) BUN/Creatinine Ratio Glucose POC Glucose Lactate Calcium Phosphorus Magnesium Total Bilirubin Direct Bilirubin AST ALT Alkaline Phosphatase Total Creatine Kinase Troponin I Total Protein Albumin Lipase Procalcitonin 01/08/19 01/08/19 01/08/19 00:19 00:52 05:26 WBC RBC Hgb Hct MCV MCH MCHC RDW Std Deviation RDW Coeff of June Plt Count MPV Neutrophils % (Manual) Lymphocytes % (Manual) Reactive Lymphs % (Man) Monocytes % (Manual) Eosinophils % (Manual) Basophils % (Manual) Neutrophils # (Manual) Total Absolute Neuts Lymphocytes # (Manual) Reactive Lymphs # Total Abs Lymphocytes Monocytes # (Manual) Eosinophils # (Manual) Basophils # (Manual) Toxic Vacuolation Echinocytes Peripher [facility] Path Cons Sample Site Art Line POC pH 7.27 L POC pCO2 42 POC pO2 195 H POC HCO3 19 POC Total CO2 20 L POC Base Excess -8.0 POC ABG O2 Sat 100.0 H Emanuel Test NA VBG pH VBG pCO2 VBG pO2 VBG HCO3 VBG O2 Saturation VBG Base Excess Barometric Pressure O2 Delivery Device Ventilator POC O2 Rate 20 Minute Ventilation 15.3 POC FiO2 100 Tidal Volume 500 PEEP 12 Sodium 137 Potassium 3.5 Chloride 107 Carbon Dioxide 20 L Anion Gap 10.0 BUN 43 H Creatinine 2.98 H D Est Cr Clr Drug Dosing 27.0 Est GFR ( Amer) 23.2 Est GFR (Non-Af Amer) 20.0 BUN/Creatinine Ratio 14.3 Glucose 114 H POC Glucose 107 H Lactate Calcium 7.8 L Phosphorus 2.6 Magnesium 2.4 Total Bilirubin 3.9 H Direct Bilirubin 2.8 H AST 274 H ALT 97 H Alkaline Phosphatase 62 Total Creatine Kinase 324 H Troponin I 0.126 H* Total Protein 4.8 L Albumin 1.9 L Lipase 7839 H Procalcitonin 01/08/19 01/08/19 01/08/19 05:26 05:26 05:26 WBC 6.95 RBC 3.84 L Hgb 12.0 L Hct 33.2 L MCV 86.5 MCH 31.3 MCHC 36.1 H RDW Std Deviation 43.1 RDW Coeff of June 13.6 Plt Count 29 L* MPV 12.2 H Neutrophils % (Manual) 55.5 Lymphocytes % (Manual) 10.0 Reactive Lymphs % (Man) 31.8 Monocytes % (Manual) Eosinophils % (Manual) 2.7 Basophils % (Manual) Neutrophils # (Manual) 3.86 Total Absolute Neuts 3.86 Lymphocytes # (Manual) 0.70 L Reactive Lymphs # 2.21 Total Abs Lymphocytes 2.91 Monocytes # (Manual) Eosinophils # (Manual) 0.19 Basophils # (Manual) Toxic Vacuolation 1+ Echinocytes 1+ Peripher Smr Path Cons Sample Site POC pH POC pCO2 POC pO2 POC HCO3 POC Total CO2 POC Base Excess POC ABG O2 Sat Emanuel Test VBG pH VBG pCO2 VBG pO2 VBG HCO3 VBG O2 Saturation VBG Base Excess Barometric Pressure O2 Delivery Device POC O2 Rate Minute Ventilation POC FiO2 Tidal Volume PEEP Sodium Potassium Chloride Carbon Dioxide Anion Gap BUN Creatinine Est Cr Clr Drug Dosing Est GFR ( Amer) Est GFR (Non-Af Amer) BUN/Creatinine Ratio Glucose POC Glucose Lactate 1.4 Calcium Phosphorus Magnesium Total Bilirubin Direct Bilirubin AST ALT Alkaline Phosphatase Total Creatine Kinase Troponin I Total Protein Albumin Lipase Procalcitonin 22.21 H 01/08/19 01/08/19 01/08/19 05:33 05:42 05:49 WBC RBC Hgb Hct MCV MCH MCHC RDW Std Deviation RDW Coeff of June Plt Count MPV Neutrophils % (Manual) Lymphocytes % (Manual) Reactive Lymphs % (Man) Monocytes % (Manual) Eosinophils % (Manual) Basophils % (Manual) Neutrophils # (Manual) Total Absolute Neuts Lymphocytes # (Manual) Reactive Lymphs # Total Abs Lymphocytes Monocytes # (Manual) Eosinophils # (Manual) Basophils # (Manual) Toxic Vacuolation Echinocytes Peripher Smr Path Cons Sample Site Art Line POC pH 7.35 POC pCO2 34 L POC pO2 114 H POC HCO3 18 L POC Total CO2 19 L POC Base Excess -7.0 POC ABG O2 Sat 98.0 H Emanuel Test NA VBG pH VBG pCO2 VBG pO2 VBG HCO3 VBG O2 Saturation VBG Base Excess Barometric Pressure O2 Delivery Device Ventilator POC O2 Rate 20 Minute Ventilation 17.9 POC FiO2 70 Tidal Volume 500 PEEP 12 Sodium Potassium Chloride Carbon Dioxide Anion Gap BUN Creatinine Est Cr Clr Drug Dosing Est GFR ( Amer) Est GFR (Non-Af Amer) BUN/Creatinine Ratio Glucose POC Glucose 54 L* 83 Lactate Calcium Phosphorus Magnesium Total Bilirubin Direct Bilirubin AST ALT Alkaline Phosphatase Total Creatine Kinase Troponin I Total Protein Albumin Lipase Procalcitonin
[2019-01-08] MEDS ORDERED: PANTOprazole 40 MG TAB PO SCH (09:00)
--- NOTE | 2019-01-08 09:06 | Family Medicine Progress Note ---
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 Anaplasmosis - On doxycycline 100 mg BID - This morning patient was intubated and sedated - ICU managing, will continue to assess - Pressors were discontinued for hypotension this morning but have been restarted because of some low BP readings F/E/N: NOrmosol 100 ml/hour NPO Dispo: ICU (2) Transaminitis: - most likely from sepsis end organ damage vs. anaplasmosis infectious cause - ALT and AST values appear to have plateau'd - continue to follow (3) Elevated troponin: Levels have plateau'd and are stable, are less than 1.0 Do not suspect NSTEMI and most likely related to demand ischemia from sepsis (4) Acute kidney injury: Creatinine elevated today to 2.98 Likely secondary to sepsis and anaplasmosis infection causing pre-renal NIKKI Will continue to monitor with adequate IV hydration (5) Thrombocytopenia: Secondary to anaplasmosis increased bleeding risk, continue to monitor for signs of bleed Treatment plan is to correct underlying cause - Anaplasmosis with expectation for recovery will continue to follow (6) Hypertension: because of sepsis causing hypotension requiring pressors, holding home meds (7) Hyperlipidemia: Home Atorvastatin is active, but noted that is currently intubated, unable to take meds PO (8) Hematuria, gross: noted overnight, murry was changed, and being treated with bladder irrigation could be caused by murry cath trauma in the setting of thrombocytopenia Supervising Physician Co-Signing Physician Notes I personally examined the patient and verified all ferraro points of history and exam, discussed case, and agree with decision making with Dr Weeks. intubated, sedated. no HPI or ROS obtainable. Vitals noted, intubated sedated no distress. HEENT normocephalic atraumatic ET tube without any local breakdown. His breathing is unlabored on the vent. Skin shows no rashes no pallor or icterus. Sepsis related to anaplasmosiscontinue doxycycline, supportive care Otherwise as above and per ICU. Subjective Caveat: History Limited by - Intubation with chemical sedation (proprofol). Mr. Garcia is currently on ventilator with proprofol sedation. Nursing notes that he had hematuria in murry bag with leakage overnight which is treated with bladder irrigation. He is not currently on pressors in the AM, but return for team rounds in PM was being started again on pressors bc of decreasing BP. Otherwise, no acute events overnight. Physical Exam Vital Signs (Past 24 Hours): Last Vital Signs Temp 36.8 C 01/07/19 18:00 Pulse 87 01/08/19 08:02 Resp 25 H 01/08/19 08:02 BP 147/81 H 01/08/19 06:01 Pulse Ox 100 01/08/19 08:02 Constitutional: WD/WN, vitals as above Neck: trachea midline; no tracheal deviation Respiratory: Auscultation: lungs clear to auscultation bilaterally; no crackles and no wheezes intubated on ventilator Cardiovascular: Rate/Rhythm: regular rate; + abnormal rhythm (occasional PACs) Gastrointestinal (Abdomen): Inspection/Auscultation: normal bowel sounds Percussion/Palpation: abdomen soft Musculoskeletal: Head/Neck/Chest: normocephalic and head atraumatic Skin: no rashes, warm and dry Neurologic: sedated on proprofol Psychiatric: sedated on proprofol Genitourinary: murry cath in place with hematuria noted in bag Results & Data Laboratory Results Laboratory Results - last 24 hr 01/07/19 01/07/19 01/07/19 13:48 14:08 14:08 WBC 4.53 L RBC 3.97 L Hgb 12.5 L Hct 34.4 L MCV 86.6 MCH 31.5 MCHC 36.3 H RDW Std Deviation 42.1 RDW Coeff of June 13.2 Plt Count 25 L* MPV 13.9 H Neutrophils % (Manual) 73.0 Lymphocytes % (Manual) 9.9 Reactive Lymphs % (Man) 9.9 Monocytes % (Manual) 4.5 Eosinophils % (Manual) 1.8 Basophils % (Manual) 0.9 Neutrophils # (Manual) 3.31 Total Absolute Neuts 3.31 Lymphocytes # (Manual) 0.45 L Reactive Lymphs # 0.45 Total Abs Lymphocytes 0.90 L Monocytes # (Manual) 0.20 Eosinophils # (Manual) 0.08 Basophils # (Manual) 0.04 Toxic Vacuolation 1+ Echinocytes 2+ Sample Site R Brachial POC pH 7.37 POC pCO2 25 L POC pO2 58 L POC HCO3 15 L POC Total CO2 15 L POC Base Excess -11.0 L POC ABG O2 Sat 90.0 Emanuel Test NA VBG pH VBG pCO2 VBG pO2 VBG HCO3 VBG O2 Saturation VBG Base Excess Barometric Pressure O2 Delivery Device Hi Ruben Can POC O2 Rate Minute Ventilation POC FiO2 50 Tidal Volume PEEP Sodium Potassium Chloride Carbon Dioxide Anion Gap BUN Creatinine Est Cr Clr Drug Dosing Est GFR ( Amer) Est GFR (Non-Af Amer) BUN/Creatinine Ratio Glucose POC Glucose Lactate 3.9 H* Calcium Phosphorus Magnesium Total Bilirubin Direct Bilirubin AST ALT Alkaline Phosphatase Total Creatine Kinase Troponin I Total Protein Albumin Lipase Procalcitonin 01/07/19 01/07/19 01/07/19 14:08 14:08 16:11 WBC RBC Hgb Hct MCV MCH MCHC RDW Std Deviation RDW Coeff of June Plt Count MPV Neutrophils % (Manual) Lymphocytes % (Manual) Reactive Lymphs % (Man) Monocytes % (Manual) Eosinophils % (Manual) Basophils % (Manual) Neutrophils # (Manual) Total Absolute Neuts Lymphocytes # (Manual) Reactive Lymphs # Total Abs Lymphocytes Monocytes # (Manual) Eosinophils # (Manual) Basophils # (Manual) Toxic Vacuolation Echinocytes Sample Site POC pH POC pCO2 POC pO2 POC HCO3 POC Total CO2 POC Base Excess POC ABG O2 Sat Emanuel Test VBG pH VBG pCO2 VBG pO2 VBG HCO3 VBG O2 Saturation VBG Base Excess Barometric Pressure O2 Delivery Device POC O2 Rate Minute Ventilation POC FiO2 Tidal Volume PEEP Sodium 136 Potassium 3.6 Chloride 104 Carbon Dioxide 22 Anion Gap 10.0 BUN 38 H Creatinine 2.58 H D Est Cr Clr Drug Dosing 31.2 Est GFR ( Amer) 27.6 Est GFR (Non-Af Amer) 23.8 BUN/Creatinine Ratio 14.8 Glucose 104 H POC Glucose 113 H Lactate Calcium 8.4 L Phosphorus Magnesium Cancelled 2.3 Total Bilirubin Direct Bilirubin AST ALT Alkaline Phosphatase Total Creatine Kinase Troponin I Total Protein Albumin Lipase Procalcitonin 01/07/19 01/07/19 01/07/19 16:36 17:06 20:57 WBC RBC Hgb Hct MCV MCH MCHC RDW Std Deviation RDW Coeff of June Plt Count MPV Neutrophils % (Manual) Lymphocytes % (Manual) Reactive Lymphs % (Man) Monocytes % (Manual) Eosinophils % (Manual) Basophils % (Manual) Neutrophils # (Manual) Total Absolute Neuts Lymphocytes # (Manual) Reactive Lymphs # Total Abs Lymphocytes Monocytes # (Manual) Eosinophils # (Manual) Basophils # (Manual) Toxic Vacuolation Echinocytes Sample Site R Brachial Art Line POC pH 7.24 L 7.21 L POC pCO2 39 49 H POC pO2 73 L 59 L POC HCO3 17 L 19 POC Total CO2 18 L 21 L POC Base Excess -11.0 L -9.0 POC ABG O2 Sat 91.0 84.0 L Emanuel Test Pass NA VBG pH 7.25 L VBG pCO2 47 VBG pO2 43 VBG HCO3 20 VBG O2 Saturation 70.0 VBG Base Excess -6.8 Barometric Pressure 737.4 O2 Delivery Device Hi Ruben Can Hi Ruben Can POC O2 Rate Minute Ventilation POC FiO2 50 76 Tidal Volume PEEP Sodium Potassium Chloride Carbon Dioxide Anion Gap BUN Creatinine Est Cr Clr Drug Dosing Est GFR ( Amer) Est GFR (Non-Af Amer) BUN/Creatinine Ratio Glucose POC Glucose Lactate Calcium Phosphorus Magnesium Total Bilirubin Direct Bilirubin AST ALT Alkaline Phosphatase Total Creatine Kinase Troponin I Total Protein Albumin Lipase Procalcitonin 01/07/19 01/08/19 01/08/19 23:11 00:19 00:52 WBC RBC Hgb Hct MCV MCH MCHC RDW Std Deviation RDW Coeff of June Plt Count MPV Neutrophils % (Manual) Lymphocytes % (Manual) Reactive Lymphs % (Man) Monocytes % (Manual) Eosinophils % (Manual) Basophils % (Manual) Neutrophils # (Manual) Total Absolute Neuts Lymphocytes # (Manual) Reactive Lymphs # Total Abs Lymphocytes Monocytes # (Manual) Eosinophils # (Manual) Basophils # (Manual) Toxic Vacuolation Echinocytes Sample Site Art Line Art Line POC pH 7.23 L 7.27 L POC pCO2 48 H 42 POC pO2 124 H 195 H POC HCO3 20 19 POC Total CO2 21 L 20 L POC Base Excess -8.0 -8.0 POC ABG O2 Sat 98.0 H 100.0 H Emanuel Test NA NA VBG pH VBG pCO2 VBG pO2 VBG HCO3 VBG O2 Saturation VBG Base Excess Barometric Pressure O2 Delivery Device BIPAP Ventilator POC O2 Rate 20 Minute Ventilation 15.3 POC FiO2 100 100 Tidal Volume 500 PEEP 12 Sodium Potassium Chloride Carbon Dioxide Anion Gap BUN Creatinine Est Cr Clr Drug Dosing Est GFR ( Amer) Est GFR (Non-Af Amer) BUN/Creatinine Ratio Glucose POC Glucose 107 H Lactate Calcium Phosphorus Magnesium Total Bilirubin Direct Bilirubin AST ALT Alkaline Phosphatase Total Creatine Kinase Troponin I Total Protein Albumin Lipase Procalcitonin 01/08/19 01/08/19 01/08/19 05:26 05:26 05:26 WBC RBC Hgb Hct MCV MCH MCHC RDW Std Deviation RDW Coeff of June Plt Count MPV Neutrophils % (Manual) Lymphocytes % (Manual) Reactive Lymphs % (Man) Monocytes % (Manual) Eosinophils % (Manual) Basophils % (Manual) Neutrophils # (Manual) Total Absolute Neuts Lymphocytes # (Manual) Reactive Lymphs # Total Abs Lymphocytes Monocytes # (Manual) Eosinophils # (Manual) Basophils # (Manual) Toxic Vacuolation Echinocytes Sample Site POC pH POC pCO2 POC pO2 POC HCO3 POC Total CO2 POC Base Excess POC ABG O2 Sat Emanuel Test VBG pH VBG pCO2 VBG pO2 VBG HCO3 VBG O2 Saturation VBG Base Excess Barometric Pressure O2 Delivery Device POC O2 Rate Minute Ventilation POC FiO2 Tidal Volume PEEP Sodium 137 Potassium 3.5 Chloride 107 Carbon Dioxide 20 L Anion Gap 10.0 BUN 43 H Creatinine 2.98 H D Est Cr Clr Drug Dosing 27.0 Est GFR ( Amer) 23.2 Est GFR (Non-Af Amer) 20.0 BUN/Creatinine Ratio 14.3 Glucose 114 H POC Glucose Lactate 1.4 Calcium 7.8 L Phosphorus 2.6 Magnesium 2.4 Total Bilirubin 3.9 H Direct Bilirubin 2.8 H AST 274 H ALT 97 H Alkaline Phosphatase 62 Total Creatine Kinase 324 H Troponin I 0.126 H* Total Protein 4.8 L Albumin 1.9 L Lipase 7839 H Procalcitonin 22.21 H 01/08/19 01/08/19 01/08/19 05:26 05:33 05:42 WBC 6.95 RBC 3.84 L Hgb 12.0 L Hct 33.2 L MCV 86.5 MCH 31.3 MCHC 36.1 H RDW Std Deviation 43.1 RDW Coeff of June 13.6 Plt Count 29 L* MPV 12.2 H Neutrophils % (Manual) 55.5 Lymphocytes % (Manual) 10.0 Reactive Lymphs % (Man) 31.8 Monocytes % (Manual) Eosinophils % (Manual) 2.7 Basophils % (Manual) Neutrophils # (Manual) 3.86 Total Absolute Neuts 3.86 Lymphocytes # (Manual) 0.70 L Reactive Lymphs # 2.21 Total Abs Lymphocytes 2.91 Monocytes # (Manual) Eosinophils # (Manual) 0.19 Basophils # (Manual) Toxic Vacuolation 1+ Echinocytes 1+ Sample Site Art Line POC pH 7.35 POC pCO2 34 L POC pO2 114 H POC HCO3 18 L POC Total CO2 19 L POC Base Excess -7.0 POC ABG O2 Sat 98.0 H Emanuel Test NA VBG pH VBG pCO2 VBG pO2 VBG HCO3 VBG O2 Saturation VBG Base Excess Barometric Pressure O2 Delivery Device Ventilator POC O2 Rate 20 Minute Ventilation 17.9 POC FiO2 70 Tidal Volume 500 PEEP 12 Sodium Potassium Chloride Carbon Dioxide Anion Gap BUN Creatinine Est Cr Clr Drug Dosing Est GFR ( Amer) Est GFR (Non-Af Amer) BUN/Creatinine Ratio Glucose POC Glucose 54 L* Lactate Calcium Phosphorus Magnesium Total Bilirubin Direct Bilirubin AST ALT Alkaline Phosphatase Total Creatine Kinase Troponin I Total Protein Albumin Lipase Procalcitonin 01/08/19 05:49 WBC RBC Hgb Hct MCV MCH MCHC RDW Std Deviation RDW Coeff of June Plt Count MPV Neutrophils % (Manual) Lymphocytes % (Manual) Reactive Lymphs % (Man) Monocytes % (Manual) Eosinophils % (Manual) Basophils % (Manual) Neutrophils # (Manual) Total Absolute Neuts Lymphocytes # (Manual) Reactive Lymphs # Total Abs Lymphocytes Monocytes # (Manual) Eosinophils # (Manual) Basophils # (Manual) Toxic Vacuolation Echinocytes Sample Site POC pH POC pCO2 POC pO2 POC HCO3 POC Total CO2 POC Base Excess POC ABG O2 Sat Emanuel Test VBG pH VBG pCO2 VBG pO2 VBG HCO3 VBG O2 Saturation VBG Base Excess Barometric Pressure O2 Delivery Device POC O2 Rate Minute Ventilation POC FiO2 Tidal Volume PEEP Sodium Potassium Chloride Carbon Dioxide Anion Gap BUN Creatinine Est Cr Clr Drug Dosing Est GFR ( Amer) Est GFR (Non-Af Amer) BUN/Creatinine Ratio Glucose POC Glucose 83 Lactate Calcium Phosphorus Magnesium Total Bilirubin Direct Bilirubin AST ALT Alkaline Phosphatase Total Creatine Kinase Troponin I Total Protein Albumin Lipase Procalcitonin Medications Administered Acetaminophen (Tylenol) 650 mg PO Q4H PRN PRN Reason: Fever Stop: 02/05/19 15:59 Last Admin: 01/06/19 16:22 Dose: 650 mg Documented by: [id number] Atorvastatin Calcium (Lipitor) 40 mg PO QAM [facility] Stop: 02/06/19 08:59 Last Admin: 01/08/19 09:17 Dose: Not Given Documented by: [id number] Admin: 01/07/19 08:25 Dose: 40 mg Documented by: [id number] Dextrose (Dextrose 50%) 25 - 50 ml IV UD PRN; Protocol PRN Reason: Hypoglycemia Protocol Stop: 02/05/19 15:23 Last Admin: 01/06/19 20:47 Dose: 50 ml Documented by: [id number] Fentanyl Citrate (Fentanyl Citrate) 25 mcg IV Q2H PRN PRN Reason: Moderate Pain (4,5,6) Stop: 01/21/19 23:53 Last Admin: 01/08/19 09:31 Dose: 25 mcg Documented by: [id number] Piperacillin Sod/Tazobactam (Sod 3.375 gm/ Dextrose) 115 mls @ 28.75 mls/hr IV Q8H GALEN; Protocol Stop: 01/13/19 12:59 Last Infusion: 01/08/19 09:17 Dose: 0 mls/hr Documented by: [id number] Admin: 01/08/19 05:12 Dose: 28.8 mls/hr Documented by: [id number] Infusion: 01/08/19 00:40 Dose: 0 mls/hr Documented by: [id number] Admin: 01/07/19 20:31 Dose: 28.8 mls/hr Documented by: [id number] Infusion: 01/07/19 16:54 Dose: 0 mls/hr Documented by: [id number] Admin: 01/07/19 12:52 Dose: 28.8 mls/hr Documented by: [id number] Infusion: 01/07/19 10:11 Dose: 0 mls/hr Documented by: [id number] Admin: 01/07/19 05:53 Dose: 28.8 mls/hr Documented by: [id number] Infusion: 01/07/19 04:28 Dose: 0 mls/hr Documented by: [id number] Admin: 01/06/19 23:54 Dose: 28.8 mls/hr Documented by: [id number] Infusion: 01/06/19 18:12 Dose: 0 mls/hr Documented by: [id number] Admin: 01/06/19 13:43 Dose: 28.8 mls/hr Documented by: [id number] Doxycycline Hyclate 100 mg/ (Dextrose) 110 mls @ 50 mls/hr IV BID GALEN; Protocol Stop: 01/20/19 19:59 Last Admin: 01/08/19 09:31 Dose: 50 mls/hr Documented by: [id number] Infusion: 01/07/19 23:11 Dose: 0 mls/hr Documented by: [id number] Admin: 01/07/19 20:31 Dose: 50 mls/hr Documented by: [id number] Infusion: 01/07/19 10:49 Dose: 0 mls/hr Documented by: [id number] Admin: 01/07/19 08:25 Dose: 50 mls/hr Documented by: [id number] Infusion: 01/06/19 23:55 Dose: 0 mls/hr Documented by: [id number] Admin: 01/06/19 21:32 Dose: 50 mls/hr Documented by: [id number] Dextrose/Electrolytes (D5w Normosol-R) 1,000 mls @ 100 mls/hr IV .Q10H GALEN Stop: 02/05/19 21:14 Last Admin: 01/08/19 01:39 Dose: 100 mls/hr Documented by: [id number] Infusion: 01/08/19 00:30 Dose: 100 mls/hr Documented by: [id number] Admin: 01/07/19 17:28 Dose: 100 mls/hr Documented by: [id number] Infusion: 01/07/19 17:28 Dose: 100 mls/hr Documented by: [id number] Admin: 01/07/19 08:24 Dose: 100 mls/hr Documented by: [id number] Infusion: 01/07/19 08:24 Dose: 100 mls/hr Documented by: [id number] Admin: 01/06/19 22:44 Dose: 100 mls/hr Documented by: [id number] Norepinephrine Bitartrate 8 mg (/ Dextrose) 508 mls @ 0 mls/hr IV .Q0M GALEN; Protocol Stop: 02/06/19 15:14 Last Titration: 01/07/19 20:36 Dose: 0 mcg/kg/min, 0 mls/hr Documented by: [id number] Titration: 01/07/19 20:28 Dose: 0.02 mcg/kg/min, 7.6 mls/hr Documented by: [id number] Titration: 01/07/19 20:14 Dose: 0.04 mcg/kg/min, 15.3 mls/hr Documented by: [id number] Titration: 01/07/19 19:45 Dose: 0.06 mcg/kg/min, 22.9 mls/hr Documented by: [id number] Titration: 01/07/19 19:04 Dose: 0.08 mcg/kg/min, 30.6 mls/hr Documented by: [id number] Cosigned by: [id number] Titration: 01/07/19 15:54 Dose: 0.1 mcg/kg/min, 38.2 mls/hr Documented by: [id number] Admin: 01/07/19 15:14 Dose: 0.05 mcg/kg/min, 19.1 mls/hr Documented by: [id number] Cosigned by: [id number] Propofol (Diprivan) 1,000 mg in 100 mls @ 9.027 mls/hr IV .Q11H5M PRN; Protocol PRN Reason: TITRATE Stop: 01/10/19 23:20 Last Admin: 01/08/19 10:09 Dose: 15 mcg/kg/min, 9 mls/hr Documented by: [id number] Cosigned by: [id number] Titration: 01/08/19 10:09 Dose: 15 mcg/kg/min, 9 mls/hr Documented by: [id number] Cosigned by: [id number] Titration: 01/08/19 07:05 Dose: 15 mcg/kg/min, 9 mls/hr Documented by: [id number] Cosigned by: [id number] Titration: 01/08/19 07:05 Dose: 15 mcg/kg/min, 9 mls/hr Documented by: [id number] Titration: 01/08/19 02:00 Dose: 15 mcg/kg/min, 9 mls/hr Documented by: [id number] Titration: 01/08/19 00:15 Dose: 10 mcg/kg/min, 6 mls/hr Documented by: [id number] Admin: 01/07/19 23:50 Dose: 5 mcg/kg/min, 3 mls/hr Documented by: [id number] Cosigned by: [id number] Pantoprazole Sodium 40 mg/ (Syringe) 10 mls @ 5 mls/min IV DAILY@1100 GALEN Stop: 01/11/19 10:59 Last Admin: 01/08/19 09:54 Dose: 5 mls/min Documented by: [id number] Insulin Aspart (Novolog Flexpen) 0 units SC Q6H GALEN Stop: 02/07/19 00:00 Last Admin: 01/08/19 06:38 Dose: Not Given Documented by: [id number] Cosigned by: [id number] Admin: 01/08/19 00:00 Dose: Not Given Documented by: [id number] Cosigned by: [id number]
[2019-01-08] MEDS: ATORVASTATIN 40 MG TAB PO SCH (09:17)
[2019-01-08] MEDS: DOXYCYCLINE HYCLATE 100 MG in DEXTROSE 5% 100 ML IV SCH ×2 (09:31→20:57)
[2019-01-08] MEDS: fentaNYL citrate 100 MCG/2 ML VIAL IV PRN ×2 (09:31→17:23)
[2019-01-08] MEDS: PANTOprazole 40 MG in SYRINGE 0 ML IV SCH (09:54)
[2019-01-08] MEDS: PROPOFOL 1,000 MG/100 ML VIAL IV PRN ×2 (10:09→18:35)
[2019-01-08 14:38] LABS: Calcium 7.7 mg/dl (8.5-10.1); Creatinine Clr Calc Pharmacy 26.3 ml/min; Est GFR (African American) 22.3; Est GFR (Non-African American) 19.2; Potassium 3.1 mmol/L (3.5-5.1)
[2019-01-08] MEDS ORDERED: POTASSIUM CHLORIDE 20 MEQ/15 ML UDC NG ONE (14:45)
[2019-01-08] MEDS: POTASSIUM CHLORIDE / WTR 10 MEQ/100 ML PLCT IV SCH ×2 (15:59→17:15)
[2019-01-08] MEDS: NOREPINEPHRINE BIT INJ 8 MG in DEXTROSE 5% 500 ML IV SCH (15:59)
--- NOTE | 2019-01-08 19:45 | Ultrasound Report ---
US gallbladder HISTORY: 73 years-old Male gallstones and pancreatisis. RUQ and pancreas acute right upper quadrant abdominal pain COMPARISON: CT abdomen and pelvis 01/07/2019 TECHNIQUE: Multiple real-time sonographic images of the abdominal right upper quadrant were obtained assessing grayscale appearance and color flow FINDINGS: Study is limited secondary to portable technique and patient condition. Pancreas is mostly obscured b y bowel gas. Slightly increased echogenicity of the liver without focal mass or intrahepatic biliary ductal dilati on. No evidence of cirrhosis or ascites. Cholelithiasis with additional echogenic nonshadowing foci s een about the dependent and nondependent gallbladder wall measuring up to 5 mm. Gallbladder distentio n with wall thickening measuring up to 5 mm. Suggestion of trace pericholecystic edema/fluid. Sonogra phic Buckley sign was unable to be assessed secondary to patient condition. Trace perihepatic ascites. Common bile duct is not definitively seen. Right kidney demonstrates no hydronephrosis. Calcification of the inferior pole right kidney redemonstrated. Right pleural effusion. IMPRESSION: 1. Limited study as above. 2. Gallbladder distention with cholelithiasis, gallbladder wall thickening and suggested trace perich olecystic fluid. Findings are suspicious for acute cholecystitis in the appropriate clinical setting. 3. Suggested gallbladder polyposis as above. 4. No biliary ductal dilation identified. 5. Trace perihepatic ascites. The above report was generated using voice recognition software. It may contain grammatical, syntax o r spelling errors. Electronically signed by: Cole De La Fuente M.D. 01/08/2019 7:44 PM
[2019-01-09] MEDS: INSULIN ASPART 100 UNITS/ML 3 ML PEN SC SCH ×4 (00:23→17:41)
[2019-01-09] MEDS: PROPOFOL 1,000 MG/100 ML VIAL IV PRN ×3 (03:02→17:36)
[2019-01-09] MEDS: PIPERACILLIN/TAZOBACTAM 3.375 GM in DEXTROSE 5% 100 ML IV SCH ×3 (05:20→21:06)
[2019-01-09] MEDS: D5W NORMOSOL-R 1,000 ML IV SCH ×2 (05:20→17:36)
[2019-01-09 05:30] LABS: BUN Creatinine Ratio 12.7 (10-20); Calcium 7.5 mg/dl (8.5-10.1); Creatinine Clr Calc Pharmacy 23.1 ml/min; Est GFR (Non-African American) 16.4; Magnesium 2.5 mg/dl (1.8-2.4); Potassium 3.1 mmol/L (3.5-5.1)
[2019-01-09 05:34] LABS: Hematocrit (blood only) 32.8 % (42-52); Hemoglobin 11.8 g/dL (14.0-18.0); Mean Corpuscular Volume 86.5 fL (80-100); Platelet Count 23 K/uL (130-400); RDW Coefficient of Variation 13.9 % (11.5-14.5); RDW Standard Deviation 44.3 fL (36.4-46.3); Red Blood Count 3.79 M/uL (4.7-6.1); White Blood Count 9.38 K/uL (4.8-10.8)
[2019-01-09] MEDS ORDERED: POTASSIUM CHLORIDE / WTR 20 MEQ/100 ML PLCT IV ONE (06:12)
[2019-01-09 06:13] LABS: ALC (manual) 5.85 K/uL (1.2-3.4); Basophils # (manual) 0.08 K/uL (0-0.2); Basophils % (manual) 0.9 %; Eosinophils # (manual) 0.44 K/uL (0-0.5); Eosinophils % (manual) 4.7 %; Lymphocytes # (manual) 1.42 K/uL (1.2-3.4); Lymphocytes % (manual) 15.1 %; Monocytes # (manual) 0.08 K/uL (0.11-0.59); Monocytes % (manual) 0.9 %; Neutrophils % (manual) 31.1 %; Platelet Estimate SIGNIFIC DECREASED (Normal); Reactive Lymphocytes # (manual) 4.44 K/uL
[2019-01-09 06:14] LABS: iSTAT Arterial Bld Gas O2 Sat 98; iSTAT FiO2 40 %; iSTAT Hematocrit 30 % (42-52); iSTAT Hemoglobin 10.2 g/dl (14.0-18.0); iSTAT Site Art Line; iSTAT Sodium 137 mEq/L (135-144)
[2019-01-09] MEDS ORDERED: PERFLUTREN LIPID MICROSPHERE (DEFINITY) IV ONE (07:23)
--- NOTE | 2019-01-09 07:35 | Surgery Consultation ---
Date of Consultation January 09, 2019 Assessment & Plan (1) Sepsis: Patient is a 73 yo male admitted with sepsis and acute respiratory failure secondary to anaplasmosis. He is thrombocytopenic. He has an elevated lipase and LFTs including direct bilirubin. He may have a component of acute liver failure secondary to profound sepsis, however along with imaging finding this is concern for possible acute cholecystitis and even potentially choledocholithiasis. - Recommend STAT HIDA scan to further assess for acute cholecystitis - Negative imaging would r/o acute cholecystitis, however positive findings would be confounding, but given all of the above data would likely treat a acute cholecystitis if HIDA is positive - If positive given severe illness would probably recommend percutaneous cholecystostomy tube over laparoscopic cholecystectomy, but surgery will re- evaluate after testing is completed. - If any concerns for choledocholithiasis/cholangitis would need GI consult for possible ERCP. History of Present Illness Reason for Consultation: Concern for cholecystitis Requesting Physician: Clement Galvin PA-C Attending Physician: Waylon Singleton DO History of Present Illness Pt is a 73 yo male with past medical history significant for but not limited to borderline diabetes, hypertension, nephrolithiasis, possible TIA, and a hiatal hernia who was transferred to [facility] from [facility] on 01/06/19. On 01/02/19 he began with nausea, vomiting, and diarrhea. The following day he presented to [facility] with dyspnea. He was started on azithromycin and ceftriaxone then switched to vancomycin and Zosyn. He was transferred due to worsening respiratory status and initial working diagnosis was aspiration pneumonia. He also had new onset a- fib. On arrival he did report hematuria and blood tinged sputum. 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 On 01/07/19 he was intubated. An extensive workup has revealed that the patient has sepsis and thrombocytopenia secondary to anaplasmosis and is on doxycycline and a thrombocytopenia. CT scan of the abdomen and pelvis which showed a distended gallbladder wall, cholelithiasis, and possible pericholecystic fluid. U/S was subsequently obtained and is concerning for acute cholecystitis. Pt remains intubated and sedated. He is currently on pressors. Allergies Allergy/AdvReac Type Severity Reaction Status Date / Time No Known Drug Allergies Allergy Unknown Verified 01/06/19 13:09 Home Medications Home Medications Medication Instructions Recorded Confirmed Type amlodipine 5 mg PO DAILY 01/06/19 01/06/19 History aspirin [Aspirin Low Dose] 81 mg PO DAILY 01/06/19 01/06/19 History atorvastatin 40 mg PO DAILY 01/06/19 01/06/19 History clopidogrel 75 mg PO DAILY 01/06/19 01/06/19 History metformin 500 mg PO BID 01/06/19 01/06/19 History metoprolol tartrate 50 mg PO BID 01/06/19 01/06/19 History Patient History Medical History Borderline diabetes mellitus Diverticulosis Glaucoma HTN (hypertension) Hiatal hernia Hyperlipidemia Hyperplastic colon polyp Kidney stones Surgical History Knee joint cyst Family History Brother Colorectal cancer Social History Communication Ability: Unable Beliefs That Will Affect Care: None Current Living Situation: Spouse Feels Safe at Home: Yes Smoking Status: Never smoker Hx Alcohol Use: No Hx Substance Use: No Review of Systems Unable to obtain secondary to patient being intubated and sedated. Physical Exam Vital Signs (Past 24 Hours): Last Vital Signs Temp 37.3 C 01/08/19 16:00 Pulse 90 01/09/19 07:00 Resp 28 H 01/09/19 05:56 BP 103/69 01/09/19 07:00 Pulse Ox 99 01/09/19 07:00 Constitutional: + ill appearing Respiratory: intubated Cardiovascular: Rate/Rhythm: regular rate Gastrointestinal (Abdomen): soft, nondistended, unable to assess for tenderness Results & Data Diagnostic Findings (01/08/19) U/S Abdomen: FINDINGS: Study is limited secondary to portable technique and patient condition. Pancreas is mostly obscured by bowel gas. Slightly increased echogenicity of the liver without focal mass or intrahepatic biliary ductal dilation. No evidence of cirrhosis or ascites. Cholelithiasis with additional echogenic nonshadowing foci seen about the dependent and nondependent gallbladder wall measuring up to 5 mm. Gallbladder distention with wall thickening measuring up to 5 mm. Suggestion of trace pericholecystic edema/fluid. Sonographic Buckley sign was unable to be assessed secondary to patient condition. Trace perihepatic ascites. Common bile duct is not definitively seen. Right kidney demonstrates no hydronephrosis. Calcification of the inferior pole right kidney redemonstrated. Right pleural effusion. IMPRESSION: 1. Limited study as above. 2. Gallbladder distention with cholelithiasis, gallbladder wall thickening and suggested trace pericholecystic fluid. Findings are suspicious for acute cholecystitis in the appropriate clinical setting. 3. Suggested gallbladder polyposis as above. 4. No biliary ductal dilation identified. 5. Trace perihepatic ascites. (01/07/19) CT Abdomen/Pelvis: FINDINGS: Lung bases: The heart is top normal in size and without pericardial effusion. There are small pleural effusions with bibasilar consolidation. There is a small hiatal hernia. Gynecomastia is noted. Liver: The unenhanced liver is normal in size, contour, and attenuation. There is no intrahepatic biliary ductal dilatation. Gallbladder: There are small calcified gallstones. The gallbladder wall appears thickened and there is mild pericholecystic inflammation.. Spleen: Normal in size and attenuation. Pancreas: The unenhanced pancreas is moderately atrophic but otherwise grossly unremarkable. Adrenal glands: Unremarkable. Kidneys: The unenhanced kidneys are atrophic and without hydronephrosis. There are least 2 nonobstructing left renal calculi which measure up to 7 mm. No right renal calculi are identified. There is no evidence of contour deforming renal mass lesion. Cortical calcification is noted along the lower pole of the right kidney. Abdominal vasculature: There is moderate to advanced atherosclerotic calcification mild ectasia of the abdominal aorta. Bowel: A rectal temperature probe is in place. There is mild colonic diverticulosis without CT evidence of acute diverticulitis. No bowel obstruction is seen. The appendix is well-visualized and normal. Peritoneum: There is trace pelvic ascites. No intraperitoneal free air is seen. Lymphadenopathy: None. Pelvic viscera: The prostate gland is enlarged and heterogeneous, measuring 5.5 cm in transverse diameter. The bladder is partially decompressed around a Salguero catheter. Foci of intraluminal gas are likely related to instrumentation. The bladder wall appears thickened and trabeculated indicating chronic outlet obstruction. Skeletal structures: The skeletal structures are osteopenic. Moderate lumbosacral spondylosis is observed. Degenerative change and partial fusion is noted in the sacroiliac joints. No lytic or blastic lesions are seen. IMPRESSION: 1. Significant suboptimal examination without oral and IV contrast. The examination is also compromised by streak and motion artifact. 2. Cholelithiasis with findings concerning for acute cholecystitis. Clinical correlation will be required. Ultrasound could be considered for further assessment. 3. There are small pleural effusions with bibasilar consolidation. This could represent atelectasis an/or pneumonia and clinical correlation will be required. 4. There is trace pelvic ascites. 5. Left-sided nephrolithiasis. 6. Additional findings as above.
--- NOTE | 2019-01-09 07:47 | Family Medicine Progress Note ---
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 Anaplasmosis - On doxycycline 100 mg BID - Patient now over 48 hours on Doxycycline hopeful that he will start to turn the corner. - This morning patient was intubated and sedated - ICU managing, will continue to assess - Has been on and off pressors currently off and maintaining pressure - Intubated yesterday, remains intubated and on vent, though breathing around it, ICU may attempt extubation today. - If not feeding today ICU considering starting tube feeds. F/E/N: NOrmosol 100 ml/hour NPO Dispo: ICU (2) Transaminitis: - most likely from sepsis end organ damage vs. anaplasmosis infectious cause - ALT and AST values appear to have plateaued - continue to follow (3) Elevated troponin: Levels have plateau'd and are stable, are less than 1.0 Do not suspect NSTEMI and most likely related to demand ischemia from sepsis (4) Acute kidney injury: Creatinine continuing to elevate over three today Likely secondary to sepsis and anaplasmosis infection causing pre-renal NIKKI, possibly ATN Will continue to monitor with adequate IV hydration (5) Thrombocytopenia: Secondary to anaplasmosis increased bleeding risk, continue to monitor for signs of bleed Treatment plan is to correct underlying cause - Anaplasmosis with expectation for recovery will continue to follow (6) Hypertension: because of sepsis causing hypotension requiring pressors, holding home meds (7) Hyperlipidemia: Home Atorvastatin is active, but noted that is currently intubated, unable to take meds PO (8) Hematuria, gross: noted Thursday night, murry was changed, and being treated with bladder irrigation could be caused by murry cath trauma in the setting of thrombocytopenia Supervising Physician Co-Signing Physician Notes I personally examined the patient and verified all ferraro points of history and exam, discussed case, and agree with decision making with Dr Garcia. intubated, sedated. no HPI or ROS obtainable. family present, answered all questions to the best of my ability. Vitals noted, intubated sedated no distress. HEENT normocephalic atraumatic ET tube without any local breakdown. His breathing is unlabored on the vent. Skin shows no rashes no pallor or icterus. Sepsis related to anaplasmosiscontinue doxycycline, supportive care, overall, outside of renal function, seems to be showing slow improvement elevated LFTs/appearance of GB wall thickening on imaging - ?cholecystitis vs swelling related to sepsis/fluid resusscitation -- HIDA pending. if negative, could consider cessation of zosyn. elevated LFTs certainly also in a pattern consistent w anaplasmosis ARF - ongoing supportive care otherwise as above Otherwise as above and per ICU. Subjective Ruben Garcia intubated and sedated this morning, not able to attain any interval history or review of systems. Family was present on bedside during attending rounds and were able to talk to them about Mr. Garcia's condition. Physical Exam Vital Signs (Past 24 Hours): Last Vital Signs Temp 37.3 C 01/08/19 16:00 Pulse 90 01/09/19 07:00 Resp 28 H 01/09/19 05:56 BP 103/69 01/09/19 07:00 Pulse Ox 99 01/09/19 07:00 Constitutional: well developed and well nourished; no acute distress Respiratory: normal respiratory effort; no audible wheezes Auscultation: lungs clear to auscultation bilaterally; no crackles, no rales, no rhonchi and no wheezes Intubated on Vent Gastrointestinal (Abdomen): Inspection/Auscultation: abdomen normal to inspection Percussion/Palpation: abdomen soft Skin: no rashes, warm and dry Resident Activity Tracking Resident Involvement: Resident Care Provided Care Provided: Adult Hospital Medicine
[2019-01-09] MEDS: ATORVASTATIN 40 MG TAB PO SCH (08:05)
[2019-01-09] MEDS: fentaNYL citrate 100 MCG/2 ML VIAL IV PRN ×2 (08:05→11:22)
[2019-01-09] MEDS: DOXYCYCLINE HYCLATE 100 MG in DEXTROSE 5% 100 ML IV SCH ×2 (08:06→21:06)
[2019-01-09] MEDS: PANTOprazole 40 MG in SYRINGE 0 ML IV SCH (08:06)
--- NOTE | 2019-01-09 11:44 | Critical Care Progress Note ---
Date of Service January 09, 2019 Assessment & Plan (1) Acute respiratory failure with hypoxia: Neuro-confusion and delirium due to metabolic encephalopathy due to sepsis. now on propofol on vent. following commands. sedation vacation CV- septic shock. on and off vasopressors aspirin/clopidogrel(held with platelets), statin,. echo EF 55-60% Pulmonary- acute hypoxic respiratory failure atelectasis. intubated 4/5 with worsening respiratory and mental status. continue vent support ID- sepsis with evidence of end organ dysfunction due anaplasmosis on doxycycline. also possible cholecystitis abx for possible aspiration pneumonia Renal- acute renal failure. likely ATN. cr worsening. UOP 1835 in 24 hours. hypokalemia will replace GI- RUQ ultrasound with possible cholecystitis. HIDA scan surgical eval. pancreatitis. pantoprazole Heme- thrombocytopenia due to anaplasmosis. watch for bleeding. SCD proph Endocrine- blood sugars controlled Dispo- continue ICU care for neuro monitoring and respiratory support discussed with family I have personally spent 60 minutes of critical care time in the direct management of this patient. This is a life/limb threatening event. This includes time spent evaluating patient, direct bedside care, chart review, placing orders, interpretation of diagnostic studies, discussion with consultants, patient, and/or family members regarding treatment decisions, as well as other required patient management activities. This time is exclusive of all separately billable procedures, and teaching time and separate from and in addition to any other critical care service time. Subjective remains on vent ultrasound with concern for cholecystitis Physical Exam Vital Signs (Past 24 Hours): Last Vital Signs Temp 37.3 C 01/08/19 16:00 Pulse 76 01/09/19 11:19 Resp 22 01/09/19 11:19 BP 123/79 01/09/19 10:00 Pulse Ox 98 01/09/19 11:19 Physical Exam: Constitutional: Comfortable NAD on vent HEENT: normocephalic atraumatic. MMM. CV: RRR nl s1,s2 no murmurs rubs or gallops Lungs: clear to auscultation bilaterally. no accessory muscle use Abd: soft nontender nondistended. normal bowel sounds Ext: no edema. no cyanosis, no clubbing Skin: warm dry Neuro: follows simples commands Psych: sedated
--- NOTE | 2019-01-09 20:22 | Nuclear Medicine Report ---
NM hepatobiliary CLINICAL HISTORY: 73 years-old Male presenting with thickened gallbladder poss cholecystitis. sepsis . TECHNIQUE: Immediately following the intravenous administration of 5.4 mCi Tc-99m Choletec, dynamic a nterior abdominal imaging was performed. No morphine administration was required. COMPARISON: CT from 01/07/2019 and ultrasound from 01/08/2019. FINDINGS: Uniform hepatic tracer accumulation is shown. Significantly delayed intrahepatic biliary excretion, w hich is not evident after one hour of imaging. The patient returned after 4 hours with radiotracer ev ident in the proximal common duct and small bowel. The gallbladder is not confidently visualized. Rad iotracer activity within the small bowel indicates a lack of a complete common duct obstruction. IMPRESSION: 1. Delayed intrahepatic biliary excretion and suggest underlying liver dysfunction or a high-grade c ommon bile duct obstruction. No definite visualization of the gallbladder after 4 hours consistent wi th acute cholecystitis. Surgical consultation advised. The report will be called/faxed according to standard departmental protocol. Electronically signed by: Kenney Nicholson M.D. 01/09/2019 8:21 PM
--- NOTE | 2019-01-09 21:12 | Critical Care Progress Note ---
Date of Service January 09, 2019 Subjective At change of shift, repeat HIDA scan pending for continued evaluation for possible underlying cholangitis versus obstructing stone. Did receive fax radiology with concerns for high-grade common bile duct obstruction. At this point, I did contact general surgery. She suggests speaking with gastroenterology. After conversation with gastroenterology, they feel that given the patient's multiple comorbidities and specifically likely need for intervention with potential high risk for bleeding complications with thrombus cytopenia, the patient would be better suited at an institution with higher blood bank capabilities. At this point, I did speak with the patient's , Karol Garcia. I provided update and she does consent for transfer. She did speak with her son who will help make decisions as well. I did speak with Rogelio Garcia, patient's son who suggests transfer to [facility]. Repeat labs were obtained which did not demonstrate persistent decline in liver function as well as renal function. H&H remained stable with a platelet count of 27,000. I did speak with the transfer center at [facility]. Dr. aVlerio - cloth cutter, does accept the patient in transfer. Patient will be transported via [facility] to [facility] for higher level of care. I did contact the patient's son Rogelio again. He is in agreement with transfer and is comfortable with transfer via [facility] to [facility]. I have personally spent 60 minutes of critical care time in the direct management of this patient. This is a life/limb threatening event. This includes time spent evaluating patient, direct bedside care, chart review, placing orders, interpretation of diagnostic studies, discussion with consultants, patient, and family members, as well as other required patient management activities. This time is exclusive of all separately billable procedures, and teaching time and separate from and in addition to any other critical care service time. Physical Exam Vital Signs (Past 24 Hours): Last Vital Signs Temp 37.3 C 01/08/19 16:00 Pulse 82 01/09/19 20:26 Resp 33 H 01/09/19 17:31 BP 145/94 H 01/09/19 20:26 Pulse Ox 99 01/09/19 20:26
[2019-01-09 21:37] LABS: Bilirubin Direct 5.3 mg/dl (0-0.2)
[2019-01-09 21:40] LABS: Albumin Level 1.8 gm/dl (3.4-5.0); BUN Creatinine Ratio 11.2 (10-20); Bilirubin,Total 6.3 mg/dl (0.2-1); Calcium 7.9 mg/dl (8.5-10.1); Creatinine Clr Calc Pharmacy 22.1 ml/min; Est GFR (African American) 17.6; Est GFR (Non-African American) 15.2; Magnesium 2.7 mg/dl (1.8-2.4); Phosphorus 2.4 mg/dl (2.5-4.9); Potassium 3.2 mmol/L (3.5-5.1); Total Protein 4.8 gm/dl (6.4-8.2); Troponin I 0.054 ng/ml (0-0.045)
[2019-01-09 21:41] LABS: Hematocrit (blood only) 33.3 % (42-52); Mean Corpuscular Volume 87.2 fL (80-100); Platelet Count 27 K/uL (130-400); RDW Coefficient of Variation 14.2 % (11.5-14.5); RDW Standard Deviation 45.7 fL (36.4-46.3); Red Blood Count 3.82 M/uL (4.7-6.1); White Blood Count 11.14 K/uL (4.8-10.8)
[2019-01-09 22:03] LABS: ALC (manual) 6.15 K/uL (1.2-3.4); Eosinophils # (manual) 0.59 K/uL (0-0.5); Eosinophils % (manual) 5.3 %; Lymphocytes # (manual) 2.05 K/uL (1.2-3.4); Lymphocytes % (manual) 18.4 %; Myelocytes % (manual) 0.9 %; Neutrophils % (manual) 38.6 %; Toxic Vacuolation 1+
--- NOTE | 2019-01-09 22:38 | Discharge Summary ---
Date of Service January 09, 2019 Admission HPI Per Admitting Provider Attending: Dr. Lazaro Quintana Patient is a 73-year-old male initially accepted in transfer to this facility on 01/06 from [facility] with shortness of breath and worsening cough with concern for possible underlying pneumonia. The few days prior, he had experienced nausea, vomiting, and diarrhea. Concerning labs consistent with leukocytosis as well as thrombocytopenia. Throughout his course, the patient was found to have peripheral blood smear consistent with anaplasmosis. He was treated with doxycycline in addition to Zosyn and vancomycin. The vancomycin has been discontinued to this point. 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 fib. Patient was placed on a Precedex drip which facilitated ability to perform noninvasive ventilatory techniques. CT of the head, chest, and abdomen pelvis were obtained. No intracranial bleeds appreciated. Chest CT concerning for pleural effusions. CT abdomen pelvis questionable for pancreatitis with possible cholecystitis. Patient underwent RIGHT subclavian central line placement on 01/07 as well as LEFT radial A-line placement. Just before midnight on 01/07, the patient did require endotracheal intubation for airway protection in the setting of respiratory failure with poor respiratory effort and altered mental status. On 01/08, a gallbladder ultrasound was obtained which was concerning for the possibility of underlying cholecystitis. Consult general surgery was made for the morning of 01/09. On 01/09, the patient did undergo HIDA scan with a follow-up HIDA at 2000 concerning for high-grade common bile duct obstruction. Repeat labs were obtained which demonstrated persistent thrombocytopenia as well as worsening liver enzymes and renal function. Patient continues to have good urine output considering. After conversation with general surgery and gastroneurology, it was felt best the patient be transferred to tertiary care center for likely need for intervention with higher blood bank capabilities. Patient was accepted in transfer to [facility]. Discharge Data Consultations 01/06/19 12:17 Consult Case Management - Discharge Planning Routine 01/06/19 12:18 Consult Home Appliance Technician Routine 01/09/19 04:39 Consult General Surgery Routine 01/09/19 22:09 Burn CD for patient Stat
[2019-01-10] MEDS: INSULIN ASPART 100 UNITS/ML 3 ML PEN SC SCH
[2019-01-10] MEDS: PROPOFOL 1,000 MG/100 ML VIAL IV PRN (01:45)
[2019-01-10] MEDS ORDERED: ATORVASTATIN 40 MG TAB PO SCH (09:00)
[2019-01-10] MEDS ORDERED: ASPIRIN 81 MG ECTAB PO SCH (09:00)
[2019-01-10] MEDS ORDERED: METFORMIN HCL 500 MG TAB PO SCH (09:00)
[2019-01-10] MEDS ORDERED: CLOPIDOGREL BISULFATE 75 MG TAB PO SCH (09:00)
[2019-01-10] MEDS ORDERED: AMLODIPINE BESYLATE 5 MG TAB PO SCH (09:00)
[2019-01-10] MEDS ORDERED: METOPROLOL TARTRATE 50 MG TAB PO SCH (09:00)
[2019-01-10 13:40] LABS: iSTAT Arterial Blood Gas pCO2 33 mmHg (35-46); iSTAT Arterial Blood Gas pH 7.38 (7.35-7.45); iSTAT Carbon Dioxide 20 mEq/l (24-31)
[2019-01-10 13:41] LABS: iSTAT Arterial Blood Gas HCO3 19 meg/L (19-24); iSTAT SpO2 98
[2019-01-11 14:45] LABS: Ehrlichia chaff IgG Ab <1:64 (<1:64); Ehrlichia chaff IgM Ab <1:20 (<1:20)
== END 2019-01-10 01:50 | disposition short-term general hospital (02) | DRG 871 ==
LOC: 1E 11:42 → SUATTDRO 11:42

== ENCOUNTER 2019-01-21 19:12 | Inpatient (IN) ==
[2019-01-22] MEDS ORDERED: ICU PROTOCOL FOR HYPERGLYCEMIA PRN ×2 (02:22→04:17)
[2019-01-22] MEDS ORDERED: PANTOprazole 40 MG in SYRINGE 0 ML IV STA (02:28)
[2019-01-22] MEDS ORDERED: DESMOPRESSIN ACETATE 27 MCG in SODIUM CHLORIDE 0.9% 50 ML IV SCH (03:00)
[2019-01-22 03:16] LABS: INR 1.8 (0.9-1.1); Partial Thromboplastin Time 26.4 Seconds (21.0-31.0); Prothrombin Time 18.1 Seconds (9.0-12.0)
[2019-01-22 03:24] LABS: Albumin Level 1.9 gm/dl (3.4-5.0); BUN Creatinine Ratio 26.8 (10-20); Bilirubin Direct 0.5 mg/dl (0-0.2); Calcium 7.7 mg/dl (8.5-10.1); Creatinine Clr Calc Pharmacy 22.9 ml/min; Est GFR (African American) 19.8; Est GFR (Non-African American) 17.1; Magnesium 1.9 mg/dl (1.8-2.4); Potassium 4.1 mmol/L (3.5-5.1)
[2019-01-22 03:27] LABS: Bilirubin,Total 0.9 mg/dl (0.2-1); Phosphorus 4.4 mg/dl (2.5-4.9); Total Protein 4.7 gm/dl (6.4-8.2); Troponin I 0.017 ng/ml (0-0.045)
--- NOTE | 2019-01-22 03:29 | Critical Care Consultation ---
Date of Consultation January 22, 2019 Assessment & Plan (1) Admitted to intensive care unit: Reason Critically Ill: 73-year-old male with acute upper GI bleed with profound anemia requiring transfusions. NEURO - * [facility] ICU: NEGATIVE CARDIAC/VASCULAR - * A. fib with RVR: * Recent diagnosis on previous admission. * Currently on metoprolol and Eliquis. * Hold Eliquis at this time. * Initially responded well to IV amiodarone during previous admission. Consider reinstituting if patient remains tachycardic and hypotensive. * Plan to resuscitate volume status with blood products and aim for improvement of blood pressure/heart rate. * Recent echo with EF of 55 to 60%. * EKG: Outpatient EKG demonstrates some ST flattening laterally. No other significant ST-T wave changes appreciated. * Monitor on telemetry. RESPIRATORY - * Recent history of pneumonia. * Otherwise, will monitor for transfusion related reactions. GI/NUTRITION - * Upper GI bleed: * Received bolus of Protonix at outside facility. * Treated with an additional dose of Protonix here. * With extreme shortage, will institute twice daily dosing of Protonix. * Consult gastroenterology. * Prophylaxis: Protonix RENAL/LYTES - * CKD: * Consider nephrology consultation with ongoing CKD with recent admission. * IVF: Plan to resuscitate with blood products this time. - * Salguero in place - Strict I&Os. ENDO - * DMII: * BSGs per unit protocol. ISS --> gtt per unit policy. HEME - * Acute, symptomatic blood loss anemia: * Received 2 units PRBCs at [facility]. * Will order an additional 2 to 3 units. * Will transfuse FFP as well. 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 * Will convert to IV in the meantime. Question if patient is experiencing gastric ulcer from doxycycline usage. LINES/IV ACCESS - * PIVs x3 * Endurance Catheter to the LUE * RIGHT Radial A-line * Salguero DVT PROPHYLAXIS - * Hold 2/2 above. * SCDs I have personally spent 60 minutes of critical care time in the direct management of this patient. This is a life/limb threatening event. This includes time spent evaluating patient, direct bedside care, chart review, placing orders, interpretation of diagnostic studies, discussion with consultants, patient, and family members, as well as other required patient management activities. This time is exclusive of all separately billable procedures, and teaching time and separate from and in addition to any other critical care service time. Thank you for allowing us to participate in the care of this patient. Please refer to my attending physician's documentation for any further recommendations. (2) Upper GI bleed: (3) Diabetes mellitus: (4) Acute blood loss anemia: (5) Symptomatic anemia: (6) Anaplasmosis: (7) Medication induced coagulopathy: (8) Anemia requiring transfusions: Supervising Physician Co-Signing Physician Notes I received signout from Camden Galvin, patient immediately had large melanotic bowel movement. On ultrasound the patient had totally collapsible IVC which created mild difficulty and initially accessing the internal jugular vein for large volume resuscitation. Aggressive blood product transfusion was undertaken. I discussed the case with Josselin Ceron given his Eliquis use and renal failure we proceeded with transfusion of Kcentra. He also received the initial bolus of TXA. Patient received 1 unit packed red blood cells at [facility], 6 units of blood at [facility] with 4 FFP, [address] Akins was also immediately contacted for endoscopic intervention which was successful. It appeared the patient had a bleeding vessel next to the am denae, this is likely secondary to passing a gallstone. We have reached maximum therapeutic intervention, he is at high risk for pancreatitis as well as rebleed and we do not have the ability to perform angiography, therefore he will be transferred to [facility]. His stomach still contained a large amount of blood and to facilitate safe transfer patient remained intubated. Last CBC obtained after completion of all the blood products revealed a hemoglobin of 8.3 and hematocrit 23.7 platelets of 176. Prior to transfer we ordered a stat PT/INR, PTT and fibrinogen results are pending. I have personally spent 95 minutes of critical care time in the direct management of this patient. This is a life/limb threatening event. This includes time spent evaluating patient, direct bedside care, chart review, placing orders, interpretation of diagnostic studies, discussion with consultants, patient, and/or family members regarding treatment decisions, as well as other required patient management activities. This time is exclusive of all separately billable procedures, and teaching time and separate from and in addition to any other critical care service time. History of Present Illness Attending Physician: Cooper Correia MD Patient is a 73-year-old male with a recent past medical history for hospitalizations in 3 separate facilities including [facility], [facility], and [facility] for anaplasmosis, thrombocytopenia, altered mental status, pancreatitis, and possible early cholecystitis. He was discharged from [facility] on last Thursday. He has remained on doxycycline since discharge. In addition, his Coumadin was changed to Eliquis. He had been doing fairly well at home, but last evening when ambulating to the restroom, he became lightheaded and weak. He was able to gently help himself to the floor. When he hit the ground, he soiled himself. His stool was loose and black per his . EMS was contacted and the patient was taken to [facility] where he was found to be anemic with a hemoglobin of 4. He received 2 units PRBCs and was subsequently transferred to this facility. He also received 80 mg IV Protonix. On arrival in this facility, the patient is awake, alert, and fairly oriented. He denies any pain at this time. He did have 2 separate bowel movements consistent with black, tarry diarrheal stools. He currently denies any headaches, dizziness, lightheadedness, chest pain, palpitations, shortness of breath, nausea, or vomiting. He denies any abdominal pain. Allergies Allergy/AdvReac Type Severity Reaction Status Date / Time No Known Drug Allergies Allergy Unknown Verified 01/06/19 13:09 Home Medications Home Medications Medication Instructions Recorded Confirmed Type amlodipine 5 mg PO DAILY 01/06/19 01/06/19 History aspirin [Aspirin Low Dose] 81 mg PO DAILY 01/06/19 01/06/19 History atorvastatin 40 mg PO DAILY 01/06/19 01/06/19 History clopidogrel 75 mg PO DAILY 01/06/19 01/06/19 History metformin 500 mg PO BID 01/06/19 01/06/19 History metoprolol tartrate 50 mg PO BID 01/06/19 01/06/19 History Patient History Medical History Borderline diabetes mellitus Diverticulosis Glaucoma HTN (hypertension) Hiatal hernia Hyperlipidemia Hyperplastic colon polyp Kidney stones Surgical History Knee joint cyst Family History Brother Colorectal cancer Social History Preferred Language: Lao Communication Ability: Effective Beliefs That Will Affect Care: None Current Living Situation: Spouse Other Information That Helps Us Care for You: No Feels Safe at Home: Yes Safety Concerns: Feels Safe At This Time Smoking Status: Never smoker Hx Alcohol Use: No Hx Substance Use: No Review of Systems Review of Systems: A complete 10 point review of systems was reviewed with the patient with pertinent positives and negatives as per history of present illness. All else were negative. Physical Exam Physical Exam: VITAL SIGNS - Vital signs and nursing notes were reviewed. GENERAL - 73-year-old male appearing his stated age who is in no acute distress. Communicates well with provider and answers questions appropriately. SKIN - Pale appearing. HEAD - NC/AT. EYES - PERRL with EOMI bilaterally. Conjunctiva pale. EARS - No deformities of external structures noted on gross examination bilaterally. NOSE - Midline and without cyanosis. MOUTH/OROPHARYNX - Without perioral cyanosis. Buccal mucosa pink and dry. NECK - Neck with FROM. Supple to palpation. No lymphadenopathy noted. No nuchal rigidity. LUNGS - Chest wall symmetric without accessory muscle use, intercostals retractions, or central cyanosis. Normal vesicular breath sounds CTA B/L. No wheezes, rales, or rhonchi appreciated. CARDIAC - RRR with S1/S2. No murmur, rubs, or gallops appreciated. ABDOMEN - Abdominal contour flat without pulsations or visible masses. BS normoactive all four quadrants. No tenderness, palpable masses, hepatosplenomegaly, or ascites noted. EXTREMITIES - No clubbing or peripheral cyanosis. No pretibial edema present. +3/5 radial and dorsalis pedis pulses palpated throughout. +5/5 strength noted in UE/LE bilaterally. NEUROLOGIC - Cranial nerves II through XII grossly intact. Sensory intact to light touch throughout. PSYCH - A&Ox3 and cooperates fully with examiner. He does tend to forget his current location at times and confuses this hospital with [facility]. Pt is very pleasant and interacts well with examiner. Results & Data Vital Signs (Past 12 Hours) Vital Signs Temp Pulse Resp BP Pulse Ox 04/20/19 02:15 36.8 C 113 H 36 H 102/66 100
[2019-01-22 04:17] LABS: Hematocrit (blood only) 16.1 % (42-52); Hemoglobin 5.5 g/dL (14.0-18.0); Mean Corpuscular Hgb Conc 34.2 g/dL (32-36); Mean Corpuscular Volume 89.4 fL (80-100); Mean Platelet Volume 11.5 fL (7.4-10.4); Platelet Count 362 K/uL (130-400); RDW Coefficient of Variation 14.7 % (11.5-14.5); RDW Standard Deviation 47.7 fL (36.4-46.3); White Blood Count 7.86 K/uL (4.8-10.8)
[2019-01-22] MEDS ORDERED: SODIUM CHLORIDE 0.9% 250 ML IV PRN ×2 (04:21→10:15)
[2019-01-22 05:09] LABS: Anisocytosis Present; Basophils # (auto) 0.07 K/uL (0-0.2); Basophils % (auto) 0.9 %; Immature Granulocytes # (auto) 0.03 K/uL (0.00-0.02); Immature Granulocytes % (auto) 0.4 %; Lymphocytes # (auto) 1.21 K/uL (1.2-3.4); Lymphocytes % (auto) 15.4 %; Monocytes # (auto) 0.19 K/uL (0.11-0.59); Monocytes % (auto) 2.4 %; Neutrophils # (auto) 6.36 K/uL (1.4-6.5); Neutrophils % (auto) 80.9 %; Polychromasia 1+
--- NOTE | 2019-01-22 05:32 | History & Physical Report ---
Date of Service January 22, 2019 Assessment & Plan (1) Upper GI bleed: Presumed upper GI bleed/anemia requiring transfusion/medication induced coagulopathy/admitted to intensive care unit- NPO Pantoprazole 40 mg IV now, combined with that given at [facility], gives 80 mg IV loading dose, then 40 mg IV every 12 hours times 2 days, then 40 mg IV daily. Received 2 units PRBCs at [facility] prior to transfer. Transfuse 3 additional units PRBCs now. H&H every 6 hours. Give DDAVP 27 mcg IV x1. Last dose of Eliquis plus a 24 hours at this point, we will therefore hold on Kcentra, unless actively bleeding. Consult gastroenterology. Consult data migration consultant Dr. Harirson Present on Admission?: Yes (2) Anemia requiring transfusions: As noted above. Present on Admission?: Yes (3) Atrial fibrillation by electrocardiogram: Remains rate controlled at this point. We will place on IV Lopressor as needed. Present on Admission?: Yes (4) Medication induced coagulopathy: Holding aspirin, clopidogrel and Eliquis. Present on Admission?: Yes (5) Diabetes mellitus: Hold metformin Place on Accu-Cheks before meals and at bedtime with NovoLog coverage per scale. Present on Admission?: Yes (6) Acute kidney injury: Creatinine 1.61 on 01/06. Creatinine 3.74 on 01/09. Creatinine 3.39 today. Prerenal state at this time. Transfuse PRBCs, IV fluids and follow serially Present on Admission?: Yes (7) Hyperlipidemia: Holding atorvastatin while n.p.o. Present on Admission?: Yes (8) Hypertension: Holding metoprolol tartrate and amlodipine while n.p.o. Present on Admission?: Yes (9) Admitted to intensive care unit: Consulting data migration consultant. Present on Admission?: Yes History of Present Illness Chief Complaint: The patient presented to the emergency department at [facility], with dark stools Primary Care Provider: Alvin Schilling MD The patient is a 73-year-old male, with a past medical history including recent hospitalization at [facility] ICU from 01/07-01/09/19 for anaplasmosis, with associated leukocytosis and thrombocytopenia, that was treated with doxycycline, Zosyn IV and vancomycin IV. He had initially presented to [facility] with shortness of breath and worsening cough, and was transferred [facility] for further assessment and treatment. During hospitalization at [facility], he was found to have a possible underlying cholecystitis associated with, common bile duct dilatation, with abnormal HIDA scan, and was transferred to [facility] in [place], due to possible need for higher blood bank capabilities. The patient presented to [facility] today with frequent dark stools, was found to have hemoglobin of 4.0, was transfused 2 units PRBCs at that facility, and then transferred to [facility] ICU for further treatment. Medications upon transfer included aspirin 81 mg daily, clopidogrel 75 mg daily and Eliquis twice daily. He did receive pantoprazole 40 mg IV x1 prior to transfer. There was notation of the patient was going to be transferred on a pantoprazole drip, but there was none present at the time patient was received. Upon arrival at [facility] today, vital signs were stable, patient underwent immediate assessment and laboratories and imaging performed, with plan to transfuse 3 units PRBCs, give an additional pantoprazole 40 mg IV now, for a total 80 mg IV loading dose, then pantoprazole 40 mg IV q. 12 hours x 2 days, then daily. Patient with also receive DDAVP 27 mcg IV x1. Allergies Allergy/AdvReac Type Severity Reaction Status Date / Time No Known Drug Allergies Allergy Unknown Verified 01/06/19 13:09 Past Med/Surg History Medical History Borderline diabetes mellitus Diverticulosis Glaucoma HTN (hypertension) Hiatal hernia Hyperlipidemia Hyperplastic colon polyp Kidney stones Surgical History Knee joint cyst Family History Brother Colorectal cancer Social History Preferred Language: Azeri Communication Ability: Effective Beliefs That Will Affect Care: None Current Living Situation: Spouse Other Information That Helps Us Care for You: No Feels Safe at Home: Yes Safety Concerns: Feels Safe At This Time Smoking Status: Never smoker Hx Alcohol Use: No Hx Substance Use: No Review of Systems Review of Systems: The patient denies chest pain, palpitations, cough, lower extremity swelling, sore throat, fevers, chills, sweats, nausea, vomiting, diarrhea, constipation, abdominal pain, pelvic pain, blood in urine, dysuria, urinary frequency or urgency, loss of consciousness, rash, focal weakness, numbness or tingling in arms or legs, generalized arthralgias or myalgias, back or neck pain, or night sweats. The review of systems is otherwise negative other than for that already noted above, and at least 10 systems have been reviewed. Physical Exam Physical Exam: The patient is awake, alert and oriented 3, mildly lethargic with slow responses to questions. Appears pale. Normocephalic and atraumatic, lying in bed and in no acute distress. HEENT--PERRL, EOMI, mucous membranes and oropharynx dry. Neck--supple. No JVD. No bruits. Thyroid normal, trachea midline, no adenopathy. Heart--normal S1 and S2. No murmurs, rubs or gallops. Lungs--clear bilaterally but diminished throughout. No respiratory distress, no accessory muscle use. Abdomen--normal bowel sounds and soft. Nontender. Nondistended. Extremities--no cyanosis or clubbing. 1+ bilateral pretibial pitting edema. There are good distal pulses b/l. Dermatologic--normal skin turgor. Pale appearing Neurologic--cranial nerves II through XII grossly intact. Rheumatologic--limited exam. Psychiatric--normal affect. Results & Data Vital Signs (Past 12 Hours) Vital Signs Temp Pulse Pulse Resp BP BP Pulse Ox 01/22/19 04:58 36.7 C 122 H 21 97/66 L 100 01/22/19 04:00 36.7 C 01/22/19 03:40 116 H 19 98 01/22/19 03:30 115 H 18 99 01/22/19 03:20 113 H 19 100 01/22/19 03:10 106 H 20 100 01/22/19 03:01 114 H 23 115/67 100 01/22/19 03:00 104 H 16 100 01/22/19 02:50 111 H 22 100 01/22/19 02:40 109 H 21 100 01/22/19 02:30 122 H 23 98 01/22/19 02:25 36.8 C 131 H 30 H 100 01/22/19 02:24 01/22/19 02:15 36.8 C 113 H 36 H 102/66 100 01/22/19 02:01 123 H 22 102/66 99 Pulse Ox 01/22/19 04:58 01/22/19 04:00 01/22/19 03:40 01/22/19 03:30 01/22/19 03:20 01/22/19 03:10 01/22/19 03:01 01/22/19 03:00 01/22/19 02:50 01/22/19 02:40 01/22/19 02:30 01/22/19 02:25 01/22/19 02:24 100 01/22/19 02:15 01/22/19 02:01 Code Status & VTE Plan VTE Prophylaxis Plan VTE Prophylaxis will be ordered: Yes Critical Care Time Total critical care time was 50 minutes Critical Care Time: Yes Total Critical Care Time: 50
--- NOTE | 2019-01-22 05:58 | Procedure Note ---
Procedure Note Date of Service January 22, 2019 Procedure: Arterial Line Placement Attending: Dr. Harrison APC: Clement Galvin PA-C Indication: Monitoring on Pressors Anesthesia: Lidocaine 1% Emergent consent implied in the setting of need for frequent blood draws with profound anemia. Patient provides verbal consent as does his family. A time-out was completed verifying correct patient, procedure, site, positioning, and implant(s) or special equipment if applicable. Allens test was performed to ensure adequate perfusion. Patients RIGHT wrist was prepped and draped in the usual sterile fashion. Ultrasound guidance was used to aid needle placement. A 20g Arrow arterial line was introduced into the RIGHT Radial artery. Catheter was threaded, and the needle was removed with appropriate blood return. Good waveform was observed. The patient tolerated the procedure well. Confirmation of placement with ultrasound. Blood Loss: Minimal Complications: None Procedural Ultrasound Guidance: Procedure Date: 01/22/2019 Indication: Frequent lab draws, pressure monitoring Attending: Dr. Harrison APC: Clement Galvin PA-C Artery Identified: YES Line confirmed in Artery with ultrasound: YES Complications: NONE Patient tolerated procedure: WELL Coding
--- NOTE | 2019-01-22 05:59 | Procedure Note ---
Procedure Note Date of Service January 22, 2019 Procedure: Automatic Wheel Line Operator Indwelling Peripherally Inserted IV Catheter Placement Attending: Dr. Harrison APC: Clement Galvin PA-C Indication: Need for IV Access, Poor Vascular Access Anesthesia: None Verbal consent was obtained from patient prior to performing the procedure. A time-out was completed verifying correct patient, procedure, site, positioning, and implant(s) or special equipment if applicable. Utilizing bedside ultrasound, vascularity of the LEFT upper extremity was assessed. Vessel size was noted for appropriate catheter selection and skin was marked with gentle pressure. Patients LEFT upper extremity was prepped and draped in the usual sterile fashion utilizing chlorhexidine. Ultrasound guidance was used to aid needle placement. A 20 g Endurance Catheter was introduced into the LEFT Cephalic vein under direct ultrasound guidance. Guide wire was easily deployed without resistance. Catheter was threaded over the guide wire without resistance and the entire apparatus was removed intact. Good venous blood return was noted in the catheter. The IV catheter was easily flushed with sterile saline flush. Sterile clave was attached to the end of the catheter and good blood return was again noted. Tourniquet was released. StatLock device and sterile dressing were applied. The patient tolerated the procedure well. Blood Loss: Minimal Complications: None Procedural Ultrasound Guidance: Procedure Date: 01/22/2019 Indication: Poor Vascular Access Attending: Dr. Harrison APC: Clement Galvin PA-C Artery/Veins Identified: YES Access confirmed in Vein with ultrasound: YES Complications: NONE Patient tolerated procedure: WELL Coding
--- NOTE | 2019-01-22 08:15 | Hospitalist Progress Note ---
Date of Service January 22, 2019 Assessment & Plan (1) Upper GI bleed: Presumed upper GI bleed/anemia requiring transfusion/medication induced coagulopathy/admitted to intensive care unit- NPO Pantoprazole 40 mg IV now, combined with that given at [facility], gives 80 mg IV loading dose, then 40 mg IV every 12 hours times 2 days, then 40 mg IV daily. Received 2 units PRBCs at [facility] prior to transfer. Transfuse 3 additional units PRBCs now. H&H every 6 hours. Give DDAVP 27 mcg IV x1. Last dose of Eliquis plus a 24 hours at this point, we will therefore hold on Kcentra, unless actively bleeding. Consult gastroenterology. Consult levi maker Dr. Harrison (2) Anemia requiring transfusions: As noted above. (3) Atrial fibrillation by electrocardiogram: Remains rate controlled at this point. We will place on IV Lopressor as needed. (4) Medication induced coagulopathy: Holding aspirin, clopidogrel and Eliquis. (5) Diabetes mellitus: Hold metformin Place on Accu-Cheks before meals and at bedtime with NovoLog coverage per scale. (6) Acute kidney injury: Creatinine 1.61 on 01/06. Creatinine 3.74 on 01/09. Creatinine 3.39 today. Prerenal state at this time. Transfuse PRBCs, IV fluids and follow serially (7) Hyperlipidemia: Holding atorvastatin while n.p.o. (8) Hypertension: Holding metoprolol tartrate and amlodipine while n.p.o. (9) Admitted to intensive care unit: Consulting levi maker. Results & Data Vital Signs (Past 12 Hours) Vital Signs Temp Pulse Pulse Resp BP BP Pulse Ox 01/22/19 07:01 118 H 16 111/73 100 01/22/19 07:00 131 H 22 96 01/22/19 06:50 120 H 22 100 01/22/19 06:46 123 H 24 132/79 100 01/22/19 06:40 128 H 28 H 100 01/22/19 06:31 116 H 15 111/74 100 01/22/19 06:30 122 H 14 100 01/22/19 06:28 36.2 C L 111 H 17 120/50 L 100 01/22/19 06:25 36.7 C 113 H 19 126/43 L 100 01/22/19 06:20 117 H 19 98 01/22/19 06:16 36.2 C L 119 H 13 95/66 L 100 01/22/19 06:15 115 H 20 100 01/22/19 06:10 111 H 22 100 01/22/19 06:01 100 H 21 131/70 99 01/22/19 06:00 112 H 12 100 01/22/19 05:50 113 H 14 100 01/22/19 05:46 109 H 20 105/65 100 01/22/19 05:45 115 H 24 100 01/22/19 05:42 36.8 C 01/22/19 05:40 114 H 20 100 01/22/19 05:31 115 H 16 83/65 L 100 01/22/19 05:30 115 H 29 H 99 01/22/19 05:20 114 H 17 100 01/22/19 05:16 118 H 26 H 116/56 L 99 01/22/19 05:15 122 H 31 H 90 01/22/19 05:10 126 H 29 H 100 01/22/19 05:05 143 H 34 H 101/59 L 100 01/22/19 05:01 115 H 27 H 80/64 L 100 01/22/19 05:00 124 H 26 H 100 01/22/19 04:58 36.7 C 122 H 21 97/66 L 100 01/22/19 04:50 113 H 21 99 01/22/19 04:45 117 H 16 100 01/22/19 04:44 113 H 16 97/66 L 100 01/22/19 04:40 151 H 24 90 01/22/19 04:30 117 H 24 100 01/22/19 04:20 110 H 22 100 01/22/19 04:15 101 H 21 100 01/22/19 04:10 97 H 20 100 01/22/19 04:00 36.7 C 117 H 22 100 01/22/19 03:50 126 H 22 100 01/22/19 03:45 129 H 23 100 01/22/19 03:40 116 H 19 98 01/22/19 03:30 115 H 18 99 01/22/19 03:20 113 H 19 100 01/22/19 03:15 109 H 12 99 01/22/19 03:10 106 H 20 100 01/22/19 03:01 114 H 23 115/67 100 01/22/19 03:00 104 H 16 100 01/22/19 02:50 111 H 22 100 01/22/19 02:45 111 H 23 99 01/22/19 02:40 109 H 21 100 01/22/19 02:30 122 H 23 98 01/22/19 02:25 36.8 C 131 H 30 H 100 01/22/19 02:24 01/22/19 02:15 36.8 C 113 H 36 H 102/66 100 01/22/19 02:01 123 H 22 102/66 99 Pulse Ox 01/22/19 07:01 01/22/19 07:00 01/22/19 06:50 01/22/19 06:46 01/22/19 06:40 01/22/19 06:31 01/22/19 06:30 01/22/19 06:28 01/22/19 06:25 01/22/19 06:20 01/22/19 06:16 01/22/19 06:15 01/22/19 06:10 01/22/19 06:01 01/22/19 06:00 01/22/19 05:50 01/22/19 05:46 01/22/19 05:45 01/22/19 05:42 01/22/19 05:40 01/22/19 05:31 01/22/19 05:30 01/22/19 05:20 01/22/19 05:16 01/22/19 05:15 01/22/19 05:10 01/22/19 05:05 01/22/19 05:01 01/22/19 05:00 01/22/19 04:58 01/22/19 04:50 01/22/19 04:45 01/22/19 04:44 01/22/19 04:40 01/22/19 04:30 01/22/19 04:20 01/22/19 04:15 01/22/19 04:10 01/22/19 04:00 01/22/19 03:50 01/22/19 03:45 01/22/19 03:40 01/22/19 03:30 01/22/19 03:20 01/22/19 03:15 01/22/19 03:10 01/22/19 03:01 01/22/19 03:00 01/22/19 02:50 01/22/19 02:45 01/22/19 02:40 01/22/19 02:30 01/22/19 02:25 01/22/19 02:24 100 01/22/19 02:15 01/22/19 02:01
[2019-01-22] MEDS ORDERED: PANTOprazole 40 MG in SYRINGE 0 ML IV SCH (09:00)
[2019-01-22] MEDS ORDERED: DOXYCYCLINE HYCLATE 100 MG in DEXTROSE 5% 100 ML IV SCH (09:00)
[2019-01-22] MEDS ORDERED: MIDAZOLAM HCL 1 MG/ML 2ML VIAL ONE ×2 (09:10→12:20)
[2019-01-22 09:38] LABS: Hematocrit (blood only) 18.3 % (42-52); Hemoglobin 6.4 g/dL (14.0-18.0)
[2019-01-22] MEDS ORDERED: NORMOSOL-R 1,000 ML IV SCH (10:00)
[2019-01-22] MEDS ORDERED: PANTOprazole 80 MG in DEXTROSE 5% 100 ML IV STA (10:02)
[2019-01-22] MEDS ORDERED: PHYTONADIONE 10 MG in SODIUM CHLORIDE 0.9% 50 ML IV ONE (10:05)
--- NOTE | 2019-01-22 10:08 | XRay Report ---
XR chest 1V portable CLINICAL HISTORY: s/p central venous line placement COMPARISON STUDY: 01/08/2019 FINDINGS: A right internal jugular introducer sheath is visualized. The tip projects over the expecte d junction of the right subclavian vein and right internal jugular vein. There is no pneumothorax. Th e heart is the upper limits of normal in size. There is no failure. There are minor airspace opacitie s the left medial lung base. The endotracheal tube and nasogastric tubes have been removed. There is been near complete interval resolution of the previous described pulmonary edema. IMPRESSION: No evidence of pneumothorax status post placement of a right internal jugular central ghislaine ous catheter. Electronically signed by: Kevin Sandhu M.D. 01/22/2019 10:06 AM
[2019-01-22] MEDS ORDERED: PANTOprazole 40 MG in DEXTROSE 5% 100 ML IV SCH (10:15)
[2019-01-22] MEDS ORDERED: TRANEXAMIC ACID 1,000 MG in 0.9 % SODIUM CHLORIDE 500 ML IV SCH (10:15)
--- NOTE | 2019-01-22 10:18 | Critical Care Progress Note ---
Date of Service January 22, 2019 Assessment & Plan (1) Admitted to intensive care unit: Mr. Garcia developed significant visualized melena this morning that required central line placement and numerous blood products, IV fluid boluses and requried transfer to tertiary care center [facility]. Consults included: 09:45 spoke with GI - Dr. Akins about significant GI bleed that was difficult to provide blood products to replenish as much as patient was bleeding. He was already aware from night team, but I updated him on new information of significant active melena and he was then en route for EGD. 10:15 Dr. Harrison spoke with Dr. Arnold Ceron at blood bank for massive transfusion needed for patient Neuro: - Confused this morning - Versad infusion was started prior to transfer to [facility]. Heme: - Review of [facility] medical records shows a Hgb of 4.0 upon initial presentation to their facility. Their records show that he received 1 unit of pRBCs, there was record that another pRBC was ordered but cannot see if this was given, admitting doctor noted in their note he did receive 2 unites total prior to arrival here. - Here for significant bleeding he received massive transfusion with 6 units of leukocyte reduced RBCs and 4 units of plasma. - Hgb levels here were 3am=5.5, 9am=6.4 after 3 total units (including [facility] [place]), another Hgb was drawn and pending. - As of 1:13pm with transfer in process, he received a total of 6 units of RBCs and 4 units of FFPs and 1 platelet. Cardiovascular/Vascular - Tachycardic in the 130s compensating for acute blood loss with systolic BPs rangings from 80s-120s. - numerous IV fluids with Bolus - Lactates were elevated and followed for hypo-perfusion - Was on Eliquis renal dose for atrial fibrillation Respiratory - was not requiring oxygenation this morning, oxy mask was placed for central line procedure - was intubated prior to EGD and was kept on intubation - ABGs showed respiratory compensation for metabolic acidosis, he was tachypneic during acute bleeding. GI: - noted as above for GI bleed with consultation with GI. - PPI Protonix IV for bleed Nephro: - appears volume down from bleeding with elevated sodium - Creatinine 3.39 at 3am, difficult to appreciate baseline from review of old EMR here as his previous values he was acutely ill with ICU stay previously for anaplasmosis. ID: - On Doxycycline for recent anaplasmosis. - Cipro 400mg IV x1 was ordered prior to transfer. Lines: Peripheral lines intact, A-line, central venous access. Clinical update: Patient 01/22/2019 at 17:58. Please refer to summary for further details. Subjective Caveat: History Limited by Confusion Mr. Garcia was seen and examined this morning. He was having some mild confusion to place, not knowing that he had been transferred from [facility]. Otherwise, he was answering questions appropriately. He did not complain of chest pain, abdominal pain, nausea, shortness of breath. He developed significant melena that required critical care intervention. He noted that the last time he took his Eliquis was yesterday morning. Review of Systems Review of Systems: Other (Limited by confusion) Physical Exam Constitutional: WD/WN, vitals as above Eyes: EOM intact bilaterally ENMT: Nose: no nasal discharge dry mucous membranes Neck: normal visual inspection and trachea midline Respiratory: normal respiratory effort, lungs clear to auscultation Cardiovascular: Rate/Rhythm: regular rhythm and + tachycardic Heart Sounds: no murmur Gastrointestinal (Abdomen): Percussion/Palpation: abdomen soft; abdomen nontender, no guarding and abdomen not rigid mild ecchymosis noted on abdomen; normal bowel sounds Skin: pallor Neurologic: moves all extremities; no focal motor deficits Speech / Cognition: normal speech Psychiatric: Orientation: alert, oriented to person and oriented to time; + not oriented to place Affect: euthymic affect Genitourinary: murry cath in place Results & Data Vital Signs (Past 12 Hours) Vital Signs Temp Pulse Pulse Resp BP BP Pulse Ox 01/22/19 09:11 124 H 20 120/73 99 01/22/19 09:10 122 H 18 100 01/22/19 07:01 118 H 16 111/73 100 01/22/19 07:00 131 H 22 96 01/22/19 06:50 120 H 22 100 01/22/19 06:46 123 H 24 132/79 100 01/22/19 06:40 128 H 28 H 100 01/22/19 06:31 116 H 15 111/74 100 01/22/19 06:30 122 H 14 100 01/22/19 06:28 36.2 C L 111 H 17 120/50 L 100 01/22/19 06:25 36.7 C 113 H 19 126/43 L 100 01/22/19 06:20 117 H 19 98 01/22/19 06:16 36.2 C L 119 H 13 95/66 L 100 01/22/19 06:15 115 H 20 100 01/22/19 06:10 111 H 22 100 01/22/19 06:01 100 H 21 131/70 99 01/22/19 06:00 112 H 12 100 01/22/19 05:50 113 H 14 100 01/22/19 05:46 109 H 20 105/65 100 01/22/19 05:45 115 H 24 100 01/22/19 05:42 36.8 C 01/22/19 05:40 114 H 20 100 01/22/19 05:31 115 H 16 83/65 L 100 01/22/19 05:30 115 H 29 H 99 01/22/19 05:20 114 H 17 100 01/22/19 05:16 118 H 26 H 116/56 L 99 01/22/19 05:15 122 H 31 H 90 01/22/19 05:10 126 H 29 H 100 01/22/19 05:05 143 H 34 H 101/59 L 100 01/22/19 05:01 115 H 27 H 80/64 L 100 01/22/19 05:00 124 H 26 H 100 01/22/19 04:58 36.7 C 122 H 21 97/66 L 100 01/22/19 04:50 113 H 21 99 01/22/19 04:45 117 H 16 100 01/22/19 04:44 113 H 16 97/66 L 100 01/22/19 04:40 151 H 24 90 01/22/19 04:30 117 H 24 100 01/22/19 04:20 110 H 22 100 01/22/19 04:15 101 H 21 100 01/22/19 04:10 97 H 20 100 01/22/19 04:00 36.7 C 117 H 22 100 01/22/19 03:50 126 H 22 100 01/22/19 03:45 129 H 23 100 01/22/19 03:40 116 H 19 98 01/22/19 03:30 115 H 18 99 01/22/19 03:20 113 H 19 100 01/22/19 03:15 109 H 12 99 01/22/19 03:10 106 H 20 100 01/22/19 03:01 114 H 23 115/67 100 01/22/19 03:00 104 H 16 100 01/22/19 02:50 111 H 22 100 01/22/19 02:45 111 H 23 99 01/22/19 02:40 109 H 21 100 01/22/19 02:30 122 H 23 98 01/22/19 02:25 36.8 C 131 H 30 H 100 01/22/19 02:24 01/22/19 02:15 36.8 C 113 H 36 H 102/66 100 01/22/19 02:01 123 H 22 102/66 99 Pulse Ox 01/22/19 09:11 01/22/19 09:10 01/22/19 07:01 01/22/19 07:00 01/22/19 06:50 01/22/19 06:46 01/22/19 06:40 01/22/19 06:31 01/22/19 06:30 01/22/19 06:28 01/22/19 06:25 01/22/19 06:20 01/22/19 06:16 01/22/19 06:15 01/22/19 06:10 01/22/19 06:01 01/22/19 06:00 01/22/19 05:50 01/22/19 05:46 01/22/19 05:45 01/22/19 05:42 01/22/19 05:40 01/22/19 05:31 01/22/19 05:30 01/22/19 05:20 01/22/19 05:16 01/22/19 05:15 01/22/19 05:10 01/22/19 05:05 01/22/19 05:01 01/22/19 05:00 01/22/19 04:58 01/22/19 04:50 01/22/19 04:45 01/22/19 04:44 01/22/19 04:40 01/22/19 04:30 01/22/19 04:20 01/22/19 04:15 01/22/19 04:10 01/22/19 04:00 01/22/19 03:50 01/22/19 03:45 01/22/19 03:40 01/22/19 03:30 01/22/19 03:20 01/22/19 03:15 01/22/19 03:10 01/22/19 03:01 01/22/19 03:00 01/22/19 02:50 01/22/19 02:45 01/22/19 02:40 01/22/19 02:30 01/22/19 02:25 01/22/19 02:24 100 01/22/19 02:15 01/22/19 02:01 Laboratory Results Laboratory Results - last 24 hr 01/22/19 01/22/19 01/22/19 02:45 02:53 02:53 WBC 7.86 RBC 1.80 L Hgb 5.5 L* POC Hgb Hct 16.1 L* POC Hct MCV 89.4 MCH 30.6 MCHC 34.2 RDW Std Deviation 47.7 H RDW Coeff of June 14.7 H Plt Count 362 MPV 11.5 H Immature Gran % (Auto) 0.4 Neut % (Auto) 80.9 Lymph % (Auto) 15.4 Canyon % (Auto) 2.4 Eos % (Auto) 0.0 Baso % (Auto) 0.9 Immature Gran # (Auto) 0.03 H Neut # (Auto) 6.36 Lymph # (Auto) 1.21 Canyon # (Auto) 0.19 Eos # (Auto) 0.00 Baso # (Auto) 0.07 Polychromasia 1+ Anisocytosis Present PT 18.1 H INR 1.8 H APTT 26.4 PTT Ratio 1.0 Sample Site POC O2 Saturation Emanuel Test O2 Delivery Device POC Sodium Sodium POC Potassium Potassium Chloride Carbon Dioxide Anion Gap BUN Creatinine Est Cr Clr Drug Dosing Est GFR ( Amer) Est GFR (Non-Af Amer) BUN/Creatinine Ratio Glucose Lactate Calcium Phosphorus Magnesium Total Bilirubin Direct Bilirubin AST ALT Alkaline Phosphatase Troponin I Total Protein Albumin Lipase Nasal Screen MRSA (PCR) Negative Blood Type Blood Type Recheck Antibody Screen Crossmatch 01/22/19 01/22/19 01/22/19 02:53 02:53 02:53 WBC RBC Hgb POC Hgb Hct POC Hct MCV MCH MCHC RDW Std Deviation RDW Coeff of June Plt Count MPV Immature Gran % (Auto) Neut % (Auto) Lymph % (Auto) Canyon % (Auto) Eos % (Auto) Baso % (Auto) Immature Gran # (Auto) Neut # (Auto) Lymph # (Auto) Canyon # (Auto) Eos # (Auto) Baso # (Auto) Polychromasia Anisocytosis PT INR APTT PTT Ratio Sample Site POC O2 Saturation Emanuel Test O2 Delivery Device POC Sodium Sodium 146 H POC Potassium Potassium 4.1 Chloride 121 H Carbon Dioxide 14 L Anion Gap 11.0 BUN 91 H Creatinine 3.39 H Est Cr Clr Drug Dosing 22.9 Est GFR ( Amer) 19.8 Est GFR (Non-Af Amer) 17.1 BUN/Creatinine Ratio 26.8 H Glucose 170 H Lactate 4.3 H* Calcium 7.7 L Phosphorus 4.4 Magnesium 1.9 Total Bilirubin 0.9 Direct Bilirubin 0.5 H AST 36 ALT 32 Alkaline Phosphatase 54 Troponin I 0.017 Total Protein 4.7 L Albumin 1.9 L Lipase 981 H Nasal Screen MRSA (PCR) Blood Type B Positive Blood Type Recheck Antibody Screen NEGATIVE Crossmatch See Detail 01/22/19 01/22/19 01/22/19 03:59 09:14 10:04 WBC RBC Hgb 6.4 L* POC Hgb 5.8 L* Hct 18.3 L* POC Hct 17 L* MCV MCH MCHC RDW Std Deviation RDW Coeff of June Plt Count MPV Immature Gran % (Auto) Neut % (Auto) Lymph % (Auto) Canyon % (Auto) Eos % (Auto) Baso % (Auto) Immature Gran # (Auto) Neut # (Auto) Lymph # (Auto) Canyon # (Auto) Eos # (Auto) Baso # (Auto) Polychromasia Anisocytosis PT INR APTT PTT Ratio Sample Site Art Line POC O2 Saturation 100 Emanuel Test NA O2 Delivery Device Other POC Sodium 148 H Sodium POC Potassium 3.8 Potassium Chloride Carbon Dioxide Anion Gap BUN Creatinine Est Cr Clr Drug Dosing Est GFR ( Amer) Est GFR (Non-Af Amer) BUN/Creatinine Ratio Glucose Lactate Calcium Phosphorus Magnesium Total Bilirubin Direct Bilirubin AST ALT Alkaline Phosphatase Troponin I Total Protein Albumin Lipase Nasal Screen MRSA (PCR) Blood Type Blood Type Recheck B Positive Antibody Screen Crossmatch Medications Administered Pantoprazole Sodium 40 mg/ (Syringe) 10 mls @ 5 mls/min IV BID@0900,2100 [facility] Stop: 02/21/19 08:59 Last Admin: 01/22/19 12:45 Dose: Not Given Documented by: [id number] Doxycycline Hyclate 100 mg/ (Dextrose) 110 mls @ 50 mls/hr IV BID [facility]; Protocol Stop: 02/05/19 08:59 Last Admin: 01/22/19 10:18 Dose: 50 mls/hr Documented by: [id number] Parenteral Electrolytes (Normosol-R) 1,000 mls @ 100 mls/hr IV .Q10H [facility] Stop: 02/21/19 09:59 Last Admin: 01/22/19 10:21 Dose: 100 mls/hr Documented by: [id number] Pantoprazole Sodium 40 mg/ (Dextrose) 100 mls @ 20 mls/hr IV Q5H [facility] Stop: 01/22/19 15:14 Last Admin: 01/22/19 12:46 Dose: 20 mls/hr Documented by: [id number] Prothrombin Complex Concent ( (Human) 8,000 units/ Syringe) 320 mls @ 10 mls/min IV TODAY@1030 [facility]; Protocol Stop: 01/22/19 14:00 Last Admin: 01/22/19 10:40 Dose: 10 mls/min Documented by: [id number]
[2019-01-22] MEDS ORDERED: RAPID SEQUENCE INDUCTION BAG ONE (10:21)
[2019-01-22] MEDS ORDERED: TRANEXAMIC ACID 1,000 MG in 0.9 % SODIUM CHLORIDE 100 ML IV STA (10:22)
[2019-01-22 10:23] LABS: iSTAT Arterial Bld Gas O2 Sat 100; iSTAT Hematocrit 17 % (42-52); iSTAT Hemoglobin 5.8 g/dl (14.0-18.0); iSTAT Potassium 3.8 mEq/L (3.3-5.0); iSTAT Site Art Line; iSTAT Sodium 148 mEq/L (135-144)
[2019-01-22] MEDS ORDERED: PROTHROMBIN COMP KCENTRA IV SCH (10:30)
[2019-01-22] MEDS ORDERED: PROTHROMBIN COMPLEX IV ONE (10:40)
--- NOTE | 2019-01-22 10:45 | Gastrointestinal Consultation ---
Date of Consultation January 22, 2019 History of Present Illness Attending Physician: Rafy Oneill MD 73 yo M s/p complicated recent hospitalization sig for anaplasmosis infection on doxy, placed on eliquis, also ASA and Plavix? for a fib, now with massive GIB - he has had multiple episodes of melena + coffee grounds, hgb in the 5's from 12 about two weeks ago. Pt is s/p 5 U PRBC; hgb after 4th unit remained around 5. He has also received plts, FFP. He has remained normotensive with apparently adequate uop in bedside [place], and is mentating. Per the resident, he has continued to have melena. He has also received PPI ggt. VS as below. Physical exam shows pt who is awake, alert, in mod distress. He is markedly pale His lungs are grossly clear. CV exam shows tachy rhythm with no murmurs. Abd: is soft without significant ecchymosis. Extrem are markedly pale. He has palpable but weak radial pulses. He has no ecchymoses on arms/legs. A/P: Massive GIB - Suspect PUD; ddx = esophageal ulcer (doxy?). Emergent EGD. Allergies Allergy/AdvReac Type Severity Reaction Status Date / Time No Known Drug Allergies Allergy Unknown Verified 01/06/19 13:09 Home Medications Home Medications Medication Instructions Recorded Confirmed Type amlodipine 5 mg PO DAILY 01/06/19 01/06/19 History aspirin [Aspirin Low Dose] 81 mg PO DAILY 01/06/19 01/06/19 History atorvastatin 40 mg PO DAILY 01/06/19 01/06/19 History clopidogrel 75 mg PO DAILY 01/06/19 01/06/19 History metformin 500 mg PO BID 01/06/19 01/06/19 History metoprolol tartrate 50 mg PO BID 01/06/19 01/06/19 History Patient History Social History Preferred Language: Japanese Communication Ability: Effective Beliefs That Will Affect Care: None Current Living Situation: Spouse Other Information That Helps Us Care for You: No Feels Safe at Home: Yes Safety Concerns: Feels Safe At This Time Smoking Status: Never smoker Hx Alcohol Use: No Hx Substance Use: No Results & Data Vital Signs (Past 12 Hours) Vital Signs Temp Pulse Pulse Resp BP BP Pulse Ox 01/22/19 09:11 124 H 20 120/73 99 01/22/19 09:10 122 H 18 100 01/22/19 07:01 118 H 16 111/73 100 01/22/19 07:00 131 H 22 96 01/22/19 06:50 120 H 22 100 01/22/19 06:46 123 H 24 132/79 100 01/22/19 06:40 128 H 28 H 100 01/22/19 06:31 116 H 15 111/74 100 01/22/19 06:30 122 H 14 100 01/22/19 06:28 36.2 C L 111 H 17 120/50 L 100 01/22/19 06:25 36.7 C 113 H 19 126/43 L 100 01/22/19 06:20 117 H 19 98 01/22/19 06:16 36.2 C L 119 H 13 95/66 L 100 01/22/19 06:15 115 H 20 100 01/22/19 06:10 111 H 22 100 01/22/19 06:01 100 H 21 131/70 99 01/22/19 06:00 112 H 12 100 01/22/19 05:50 113 H 14 100 01/22/19 05:46 109 H 20 105/65 100 01/22/19 05:45 115 H 24 100 01/22/19 05:42 36.8 C 01/22/19 05:40 114 H 20 100 01/22/19 05:31 115 H 16 83/65 L 100 01/22/19 05:30 115 H 29 H 99 01/22/19 05:20 114 H 17 100 01/22/19 05:16 118 H 26 H 116/56 L 99 01/22/19 05:15 122 H 31 H 90 01/22/19 05:10 126 H 29 H 100 01/22/19 05:05 143 H 34 H 101/59 L 100 01/22/19 05:01 115 H 27 H 80/64 L 100 01/22/19 05:00 124 H 26 H 100 01/22/19 04:58 36.7 C 122 H 21 97/66 L 100 01/22/19 04:50 113 H 21 99 01/22/19 04:45 117 H 16 100 01/22/19 04:44 113 H 16 97/66 L 100 01/22/19 04:40 151 H 24 90 01/22/19 04:30 117 H 24 100 01/22/19 04:20 110 H 22 100 01/22/19 04:15 101 H 21 100 01/22/19 04:10 97 H 20 100 01/22/19 04:00 36.7 C 117 H 22 100 01/22/19 03:50 126 H 22 100 01/22/19 03:45 129 H 23 100 01/22/19 03:40 116 H 19 98 01/22/19 03:30 115 H 18 99 01/22/19 03:20 113 H 19 100 01/22/19 03:15 109 H 12 99 01/22/19 03:10 106 H 20 100 01/22/19 03:01 114 H 23 115/67 100 01/22/19 03:00 104 H 16 100 01/22/19 02:50 111 H 22 100 01/22/19 02:45 111 H 23 99 01/22/19 02:40 109 H 21 100 01/22/19 02:30 122 H 23 98 01/22/19 02:25 36.8 C 131 H 30 H 100 01/22/19 02:24 01/22/19 02:15 36.8 C 113 H 36 H 102/66 100 01/22/19 02:01 123 H 22 102/66 99 Pulse Ox 01/22/19 09:11 01/22/19 09:10 01/22/19 07:01 01/22/19 07:00 01/22/19 06:50 01/22/19 06:46 01/22/19 06:40 01/22/19 06:31 01/22/19 06:30 01/22/19 06:28 01/22/19 06:25 01/22/19 06:20 01/22/19 06:16 01/22/19 06:15 01/22/19 06:10 01/22/19 06:01 01/22/19 06:00 01/22/19 05:50 01/22/19 05:46 01/22/19 05:45 01/22/19 05:42 01/22/19 05:40 01/22/19 05:31 01/22/19 05:30 01/22/19 05:20 01/22/19 05:16 01/22/19 05:15 01/22/19 05:10 01/22/19 05:05 01/22/19 05:01 01/22/19 05:00 01/22/19 04:58 01/22/19 04:50 01/22/19 04:45 01/22/19 04:44 01/22/19 04:40 01/22/19 04:30 01/22/19 04:20 01/22/19 04:15 01/22/19 04:10 01/22/19 04:00 01/22/19 03:50 01/22/19 03:45 01/22/19 03:40 01/22/19 03:30 01/22/19 03:20 01/22/19 03:15 01/22/19 03:10 01/22/19 03:01 01/22/19 03:00 01/22/19 02:50 01/22/19 02:45 01/22/19 02:40 01/22/19 02:30 01/22/19 02:25 01/22/19 02:24 100 01/22/19 02:15 01/22/19 02:01
--- NOTE | 2019-01-22 10:47 | Anesthesiology Consultation ---
Date of Service January 22, 2019 Assessment & Plan (1) Encounter for pre-operative examination: Chart Review Chart Review: Acceptable Risk for Surgery History Surgery Operation Date: 01/22/19 10:45 Proposed Procedures p EGD Hemostasis - Mateo Akins Height/Weight Height: 6 ft 2 in Weight: 89.4 kg Allergies Allergy/AdvReac Type Severity Reaction Status Date / Time No Known Drug Allergies Allergy Unknown Verified 01/06/19 13:09 Medications Home Medications Medication Instructions Recorded Confirmed Last Taken amlodipine 5 mg PO DAILY 01/06/19 01/06/19 Unknown aspirin [Aspirin Low Dose] 81 mg PO DAILY 01/06/19 01/06/19 Unknown atorvastatin 40 mg PO DAILY 01/06/19 01/06/19 Unknown clopidogrel 75 mg PO DAILY 01/06/19 01/06/19 Unknown metformin 500 mg PO BID 01/06/19 01/06/19 Unknown metoprolol tartrate 50 mg PO BID 01/06/19 01/06/19 Unknown Active Medications Generic Name Dose Route Start Last Admin Trade Name Freq PRN Reason Stop Dose Admin Doxycycline Hyclate 100 mg/ 110 mls @ 50 mls/hr 01/22/19 09:00 01/22/19 10:18 Dextrose IV 02/05/19 08:59 50 mls/hr BID [facility] Administration Protocol Parenteral Electrolytes 1,000 mls @ 100 mls/hr 01/22/19 10:00 01/22/19 10:21 Normosol-R IV 02/21/19 09:59 100 mls/hr .Q10H [facility] Administration Prothrombin Complex Concent ( 320 mls @ 10 mls/min 01/22/19 10:30 01/22/19 10:40 Human) 8,000 units/ Syringe IV 01/22/19 14:00 10 mls/min TODAY@1030 G[facility] Administration Protocol Past Medical History Medical History Borderline diabetes mellitus Diverticulosis Glaucoma HTN (hypertension) Hiatal hernia Hyperlipidemia Hyperplastic colon polyp Kidney stones Past Family History Family History Brother Colorectal cancer Past Surgical History Surgical History Knee joint cyst Social History Smoking Status: Never smoker Hx Alcohol Use: No Hx Substance Use: No substance use type: does not use Physical Exam Vital Signs Last Vital Signs Temp 36.2 C L 01/22/19 06:28 Pulse 124 H 01/22/19 09:11 Resp 20 01/22/19 09:11 BP 120/73 01/22/19 09:11 Pulse Ox 99 01/22/19 09:11 Testing Electrocardiogram Date: 01/22/19 Atrial fibrillation with rapid ventricular response Nonspecific ST abnormality Abnormal ECG When compared with ECG of 06-JAN-2019 12:47, No significant change was foun Laboratory Results 01/22/19 09:14 01/22/19 02:53 Blood Type B Positive 01/22/19 02:53 Antibody Screen NEGATIVE 01/22/19 02:53 PT 18.1 Seconds (9.0-12.0) H 01/22/19 02:53 INR 1.8 (0.9-1.1) H 01/22/19 02:53 APTT 26.4 Seconds (21.0-31.0) 01/22/19 02:53
[2019-01-22] MEDS ORDERED: MIDAZOLAM HCL 125MG/250ML D5W ONE (10:54)
[2019-01-22] MEDS ORDERED: DEXTROSE 50% 50 ML SYRINGE IV ONE (11:05)
[2019-01-22] MEDS ORDERED: PROPOFOL IV EMULSION 10 MG/ML 100 ML VIAL IV ONE (11:51)
--- NOTE | 2019-01-22 12:14 | Anesthesiology Progress Note ---
Date of Service January 22, 2019 Anesthesia Post Procedure Vital Signs Vital Signs: Temp Pulse Pulse Resp BP BP Pulse Ox 01/22/19 11:19 92 H 20 128/56 L 100 01/22/19 10:54 97 H 20 100 01/22/19 09:11 124 H 20 120/73 99 01/22/19 09:10 122 H 18 100 01/22/19 07:01 118 H 16 111/73 100 01/22/19 07:00 131 H 22 96 01/22/19 06:50 120 H 22 100 01/22/19 06:46 123 H 24 132/79 100 01/22/19 06:40 128 H 28 H 100 01/22/19 06:31 116 H 15 111/74 100 01/22/19 06:30 122 H 14 100 01/22/19 06:28 36.2 C L 111 H 17 120/50 L 100 01/22/19 06:25 36.7 C 113 H 19 126/43 L 100 01/22/19 06:20 117 H 19 98 01/22/19 06:16 36.2 C L 119 H 13 95/66 L 100 01/22/19 06:15 115 H 20 100 01/22/19 06:10 111 H 22 100 01/22/19 06:01 100 H 21 131/70 99 01/22/19 06:00 112 H 12 100 01/22/19 05:50 113 H 14 100 01/22/19 05:46 109 H 20 105/65 100 01/22/19 05:45 115 H 24 100 01/22/19 05:42 36.8 C 01/22/19 05:40 114 H 20 100 01/22/19 05:31 115 H 16 83/65 L 100 01/22/19 05:30 115 H 29 H 99 01/22/19 05:20 114 H 17 100 01/22/19 05:16 118 H 26 H 116/56 L 99 01/22/19 05:15 122 H 31 H 90 01/22/19 05:10 126 H 29 H 100 01/22/19 05:05 143 H 34 H 101/59 L 100 01/22/19 05:01 115 H 27 H 80/64 L 100 01/22/19 05:00 124 H 26 H 100 01/22/19 04:58 36.7 C 122 H 21 97/66 L 100 01/22/19 04:50 113 H 21 99 01/22/19 04:45 117 H 16 100 01/22/19 04:44 113 H 16 97/66 L 100 01/22/19 04:40 151 H 24 90 01/22/19 04:30 117 H 24 100 01/22/19 04:20 110 H 22 100 01/22/19 04:15 101 H 21 100 01/22/19 04:10 97 H 20 100 01/22/19 04:00 36.7 C 117 H 22 100 01/22/19 03:50 126 H 22 100 01/22/19 03:45 129 H 23 100 01/22/19 03:40 116 H 19 98 01/22/19 03:30 115 H 18 99 01/22/19 03:20 113 H 19 100 01/22/19 03:15 109 H 12 99 01/22/19 03:10 106 H 20 100 01/22/19 03:01 114 H 23 115/67 100 01/22/19 03:00 104 H 16 100 01/22/19 02:50 111 H 22 100 01/22/19 02:45 111 H 23 99 01/22/19 02:40 109 H 21 100 01/22/19 02:30 122 H 23 98 01/22/19 02:25 36.8 C 131 H 30 H 100 01/22/19 02:24 01/22/19 02:15 36.8 C 113 H 36 H 102/66 100 01/22/19 02:01 123 H 22 102/66 99 Pulse Ox 01/22/19 11:19 01/22/19 10:54 01/22/19 09:11 01/22/19 09:10 01/22/19 07:01 01/22/19 07:00 01/22/19 06:50 01/22/19 06:46 01/22/19 06:40 01/22/19 06:31 01/22/19 06:30 01/22/19 06:28 01/22/19 06:25 01/22/19 06:20 01/22/19 06:16 01/22/19 06:15 01/22/19 06:10 01/22/19 06:01 01/22/19 06:00 01/22/19 05:50 01/22/19 05:46 01/22/19 05:45 01/22/19 05:42 01/22/19 05:40 01/22/19 05:31 01/22/19 05:30 01/22/19 05:20 01/22/19 05:16 01/22/19 05:15 01/22/19 05:10 01/22/19 05:05 01/22/19 05:01 01/22/19 05:00 01/22/19 04:58 01/22/19 04:50 01/22/19 04:45 01/22/19 04:44 01/22/19 04:40 01/22/19 04:30 01/22/19 04:20 01/22/19 04:15 01/22/19 04:10 01/22/19 04:00 01/22/19 03:50 01/22/19 03:45 01/22/19 03:40 01/22/19 03:30 01/22/19 03:20 01/22/19 03:15 01/22/19 03:10 01/22/19 03:01 01/22/19 03:00 01/22/19 02:50 01/22/19 02:45 01/22/19 02:40 01/22/19 02:30 01/22/19 02:25 01/22/19 02:24 100 01/22/19 02:15 01/22/19 02:01 Notes Mental Status: see notes below Nausea / Vomiting: see Notes below Pain: see Notes below Anesthetic Complications: no major complications apparent Notes: The patient had an emergent EGD for upper GI bleed done at the bedside by Dr. Akins. The patient was intubated and was receiving multiple units of blood products per the ICU team including PRBCs, K centra, FFP, platelets., He has a history of atrial fibrillation with RVR and was on anticoagulation. The patient remained hemodynamically stable throughout the procedure and a full report was given to the ICU nurse.
[2019-01-22] MEDS ORDERED: PROPOFOL IV EMULSION 10 MG/ML 20 ML VIAL IV ONE (12:20)
[2019-01-22] MEDS ORDERED: fentaNYL citrate 100 MCG/2 ML VIAL ONE (12:20)
[2019-01-22] MEDS ORDERED: MIDAZOLAM HCL 125 MG/250 ML BAG IV STA ×2 (12:30→12:48)
[2019-01-22] MEDS ORDERED: MIDAZOLAM HCL 125 MG/250 ML BAG IV SCH (13:15)
--- NOTE | 2019-01-22 13:15 | Procedure Note ---
Procedure Note Date of Service January 22, 2019 Procedure Date: Noted above Procedure: Endotracheal intubation Pre-procedure Diagnosis: Respiratory insufficiency, hypovolemic shock secondary to gastrointestinal hemorrhage Post-procedure Diagnosis: same as above Prior to Procedure: Informed Consent: emergent, patient verbally consented to risks and benefits Attending Staff: Carmine Harrison DO The identity of the patient was confirmed and a bedside time out was performed. Description of Procedure: Patient was evaluated and required intubation for impending respiratory failure. The patient was prepared in the usual fashion. A 3 CMAC laryngoscope was used. A 8 mm inner diameter endotrachial tube was placed endotracheally to 24 cm at the teeth. A grade 1 view was obtained. The endotracheal tube was noted to pass through the vocal cords. Chest rise was bilateral. Bilateral breath sounds were heard without air sounds in the abdomen. Mist was noted in the endotracheal tube. End-tidal CO2 measurement was positive. Chest x-ray shows proper endotracheal tube placement. Complications: None Findings: Not applicable Specimens: Not applicable Estimated blood loss: Zero Coding
--- NOTE | 2019-01-22 13:16 | Procedure Note ---
Procedure Note Date of Service January 22, 2019 Procedure date: Noted above Procedure: Central venous access Pre-procedure indication: Gastrointestinal hemorrhage, hypovolemic shock Post-procedure Diagnosis: same as above Prior to Procedure: Informed Consent: The risks, benefits, indications, potential complications, and alternatives were explained to the patient and informed consent obtained. Attending Staff: Carmine Harrison DO Resident/APC: Micky Skin Prep: Chlorhexidine Anesthesia: 4 mL 1% lidocaine without epinephrine The identity of the patient was confirmed and a bedside time out was performed. Description of Procedure: After sterile prep and sterile drape utilizing standard sterile technique the superficial skin of the right internal jugular area was anesthetized. The target vessel was identified and entered with an 18- gauge needle. Dark venous blood return was noted. A guidewire was inserted through the needle and into the vessel. The needle was withdrawn and a skin yaquelin was made. A tissue dilator was advanced via Seldinger technique and removed. A single 8.5 Croatian lumen catheter was inserted via Seldinger technique and the guidewire removed. All ports joleen and flushed easily. A Biopatch was placed, and the catheter was secured via silk suture. A sterile dressing was then applied. Complications: None Estimated blood loss: Trace Patient tolerated the procedure well. Procedure Date: Noted Above Procedure: Procedural Ultrasound Indication: Central venous access Attending: Carmine Harrison DO Resident/Physician Airfield Engineer Officer: Micky Artery visualized: Yes Vein visualized: Yes Compressible Vein: Yes Vein patent: Yes Guidewire or Short Catheter seen in vein prior to dilation: Yes Line confirmed in Vein with ultrasound: Yes Lung Sliding on side of attempt (if applicable): NA If no lung sliding or not obtained has CXR been ordered: Yes Impression: Successful central venous access placement Images obtained are saved for permanent record Coding
[2019-01-22 13:19] LABS: Basophils # (auto) 0.03 K/uL (0-0.2); Basophils % (auto) 0.3 %; Hematocrit (blood only) 23.7 % (42-52); Hemoglobin 8.3 g/dL (14.0-18.0); Immature Granulocytes # (auto) 0.06 K/uL (0.00-0.02); Immature Granulocytes % (auto) 0.5 %; Lymphocytes # (auto) 1.13 K/uL (1.2-3.4); Lymphocytes % (auto) 9.6 %; Mean Corpuscular Volume 84.9 fL (80-100); Mean Platelet Volume 10.7 fL (7.4-10.4); Monocytes # (auto) 1.09 K/uL (0.11-0.59); Monocytes % (auto) 9.3 %; Neutrophils % (auto) 80.3 %; Platelet Count 176 K/uL (130-400); RDW Coefficient of Variation 14.6 % (11.5-14.5); RDW Standard Deviation 45.4 fL (36.4-46.3); Red Blood Count 2.79 M/uL (4.7-6.1); White Blood Count 11.71 K/uL (4.8-10.8)
[2019-01-22 13:20] LABS: Echinocytes 1+
[2019-01-22] MEDS ORDERED: Nursing to Pharmacy Communication ONE (13:28)
[2019-01-22] MEDS ORDERED: CIPROFLOXACIN 400 MG/200 ML BAG IV STA (13:37)
[2019-01-22] MEDS ORDERED: metroNIDAZOLE 500 MG/100 ML BAG IV STA (13:37)
[2019-01-22] MEDS ORDERED: CIPROFLOXACIN 400 MG/200 ML BAG IV ONE (13:45)
--- NOTE | 2019-01-22 13:46 | Discharge Summary ---
Date of Service January 22, 2019 Admission HPI Per Admitting Provider The patient is a 73-year-old male, with a past medical history including recent hospitalization at [facility] ICU from 01/07-01/09/19 for anaplasmosis, with associated leukocytosis and thrombocytopenia, that was treated with doxycycline, Zosyn IV and vancomycin IV. He had initially presented to [facility] with shortness of breath and worsening cough, and was transferred [facility] for further assessment and treatment. During hospitalization at [facility], he was found to have a possible underlying cholecystitis associated with, common bile duct dilatation, with abnormal HIDA scan, and was transferred to [facility] in [place], due to possible need for higher blood bank capabilities. The patient presented to [facility] today with frequent dark stools, was found to have hemoglobin of 4.0, was transfused 2 units PRBCs at that facility, and then transferred to [facility] ICU for further treatment. Medications upon transfer included aspirin 81 mg daily, clopidogrel 75 mg daily and Eliquis twice daily. He did receive pantoprazole 40 mg IV x1 prior to transfer. There was notation of the patient was going to be transferred on a pantoprazole drip, but there was none present at the time patient was received. Upon arrival at [facility] today, vital signs were stable, patient underwent immediate assessment and laboratories and imaging performed, with plan to transfuse 3 units PRBCs, give an additional pantoprazole 40 mg IV now, for a total 80 mg IV loading dose, then pantoprazole 40 mg IV q. 12 hours x 2 days, then daily. Patient with also receive DDAVP 27 mcg IV x1. Principal Diagnosis upper gi bleed, visable vessel Discharge Exam Constitutional well developed and average body habitus Eyes no conjunctival abnormality and no scleral abnormality Neck normal visual inspection and trachea midline Respiratory + respiratory distress Auscultation: + diminished lung sounds Cardiovascular Rate/Rhythm: + tachycardic Gastrointestinal (Abdomen) Inspection/Auscultation: + abdomen distended Percussion/Palpation: + abdomen tender Musculoskeletal no cyanosis or clubbing, extremities motor strength 5/5 Discharge Data Allergies Allergy/AdvReac Type Severity Reaction Status Date / Time No Known Drug Allergies Allergy Unknown Verified 01/06/19 13:09 Consultations 01/22/19 02:23 Consult Case Management - Discharge Planning Routine Consult Global Compensation Analyst Routine 01/22/19 06:09 Consult Gastroenterology Routine 01/22/19 13:00 Burn CD for patient Stat Procedures Performed Operation Date: 01/22/19 10:45 Actual Procedures p EGD Hemostasis - Mateo Akins Ordered Studies 01/22/19 09:03 US point of care ultrasound Stat Hospital Course (1) Upper GI bleed: Upper GI bleed/anemia requiring transfusion/medication induced coagulopathy/admitted to intensive care unit- Pantoprazole Received multiple units PRBCs and is on massive transfusion protocol Give DDAVP 27 mcg IV x1. Last dose of Eliquis plus a 24 hours at this point, (2) Anemia requiring transfusions: As noted above. (3) Atrial fibrillation by electrocardiogram: Remains rate controlled at this point. We will place on IV Lopressor as needed. (4) Medication induced coagulopathy: Holding aspirin, clopidogrel and Eliquis. (5) Diabetes mellitus: Hold metformin Place on Accu-Cheks before meals and at bedtime with NovoLog coverage per scale. (6) Acute kidney injury: Creatinine 1.61 on 01/06. Creatinine 3.74 on 01/09. Creatinine 3.39 today. Prerenal state at this time. Transfuse PRBCs, IV fluids and follow serially (7) Hyperlipidemia: Holding atorvastatin while n.p.o. (8) Hypertension: Holding metoprolol tartrate and amlodipine while n.p.o. 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 Total Time Total Time Spent Total Time Spent (In Minutes): less than 30 Discharge Plan Discharge Items Patient Disposition: Transfer Acute Care Hospital Reason For Visit: GI BLEED Discharge Diagnosis: upper gi bleed Discharge Goals: Decrease discomfort, Diagnostic testing and Improve disease control Activity: As commented below Activity Comment: pt is critically ill Non-emergency contact: Primary Care Provider and Surgeon Call non-emergency contact if: you have any medication questions Follow-up/Referrals: Alvin Schilling MD [Primary Care Provider] - Diet: Nothing by mouth Addtl Provider Instructions: pt is intubated and ventilated Prescriptions: Discontinued atorvastatin 40 mg tablet 40 mg PO DAILY RF: 0 metformin 500 mg tablet 500 mg PO BID RF: 0 clopidogrel 75 mg tablet 75 mg PO DAILY RF: 0 amlodipine 5 mg tablet 5 mg PO DAILY RF: 0 aspirin [Aspirin Low Dose] 81 mg Tablet,Delayed Release (Dr/Ec) 81 mg PO DAILY RF: 0 metoprolol tartrate 50 mg tablet 50 mg PO BID RF: 0 Stand-Alone Forms: [facility] Discharge Orders: Discharge Order (Routine); Ordered 01/22/19 Ordered By: Rafy Oneill Admission Data Admit Date/Time: 01/22/19 01:55 Attending Provider: Rafy Oneill Admit Provider: Cooper Correia Primary Care Provider: Alvin Schilling Other Providers: Pipo Harrison ; Cooper Correia ; Mateo Akins Service: Intensive Care Unit
--- NOTE | 2019-01-22 13:47 | GI REPORT ---
Patient Name: Ruben Garcia Procedure Date: 01/22/2019 11:21 AM Date of : 1945 Admit Type: Inpatient Age: 73 Gender: Male Attending MD: Mateo Akins MD Procedure: Upper GI endoscopy Providers: Mateo Akins MD Referring MD: Cooper Correia Indications: Melena Medicines: See the Anesthesia note for documentation of the administered medications Complications: No immediate complications. Estimated Blood Loss: There was approximately 100 cc of blood loss from active bleeding during the procedure. Procedure: Pre-Anesthesia Assessment: - After reviewing the risks and benefits, the patient was deemed in satisfactory condition to undergo the procedure. - ASA Grade Assessment: V - A moribund patient who is not expected to survive without the operation. After obtaining informed consent, the endoscope was passed under direct vision. Throughout the procedure, the patient's blood pressure, pulse, and oxygen saturations were monitored continuously. The Endoscope was introduced through the mouth, and advanced to the third part of duodenum. The upper GI endoscopy was performed with difficulty due to excessive bleeding. The patient tolerated the procedure well. Findings: The examined esophagus was normal. There was a moderate amount of coffee ground material in the fundus that could not be suctioned out; the fundus could not be cleared. There was a small amount of red blood staining the antrum; otherwise the mucosa of the stomach was normal. There were a few small erosions in the duodenal bulb. There was a large amount of red blood and clot in the second portion of the duodenum. The ampulla was visualized with the forward viewing scope, and was seen to be effluxing clear bile. There was an actively spurting visible vessel on the duodenal mucosa adjacent to the ampulla. There was no surrounding ulceration. The vessel was on the mucosa cephalad, or proximal, to the ampulla and did not appear to involve the ampullary orifice. I injected 2 cc of 1:100,000 epinephrine in the mucosa adjacent to the bleeding vessel. The vessel stopped spurting blood and there was visible blanching of the mucsoa; however, after a few seconds, the site began to slowly ooze. 4 cc of 1:100,000 epinephrine was sprayed on to site with no decrease in the oozing. The ERCP scope was then inserted, and the site was visualized. Again, a slowly oozing vessel was seen adjacent to the ampullary orifice. The ampullary orifice was again seen to efflux bile. Biopolar cautery was applied to the vessel at a setting of 15 thurman for 5 seconds with mild pressure; there was continued mild to moderate oozing from the site. 4 cc of 1:100,000 epinephrine was sprayed onto the site with continued mild oozing. 4 cc of fresh frozen plasma, obtained from the patient's transfusion, was sprayed on to the site, with continued mild oozing. A therapeutic upper endoscope was then inserted. Bipolar cautery was applied to the bleeding site at a setting of 20 W for 5 seconds x 2 with mild pressure, with apparent adequate hemostasis. The cautery burn was seen to be not involving the ampullary orifice. There was very scant oozing that was noted with lavage; this resolved with spray of 5 cc of D50 solution onto the site. Impression: - Actively bleeding visible vessel adjacent to the ampulla. Hemostasis achieved with a variety of modalities. Recommendation: - PPI gtt, NPO, follow LFTs and lipase, cont volume resuscitation with fluid and blood products per ICU attg. Transfer to tertiary center for further care. Mateo Akins M.D. Mateo Akins MD 01/22/2019 1:47:05 PM This report has been signed electronically. Note Initiated On: 01/22/2019 11:21 AM Number of Addenda: 0 I attest to the content of the Intraoperative Record and orders documented therein, exceptions below {[id number]}
[2019-01-22 14:07] LABS: Albumin Level 2.2 gm/dl (3.4-5.0); BUN Creatinine Ratio 28.7 (10-20); Calcium 7.4 mg/dl (8.5-10.1); Creatinine Clr Calc Pharmacy 24.3 ml/min; Est GFR (African American) 21.3; Est GFR (Non-African American) 18.3; Potassium 3.5 mmol/L (3.5-5.1)
[2019-01-22 14:09] LABS: Fibrinogen 151 mg/dl (184-400); INR 1.2 (0.9-1.1); Partial Thromboplastin Time 26.1 Seconds (21.0-31.0); Prothrombin Time 12.5 Seconds (9.0-12.0)
[2019-01-22 14:10] LABS: Globulin 2.2 gm/dl (2.5-4.0); Total Protein 4.4 gm/dl (6.4-8.2)
[2019-01-22] MEDS ORDERED: fentaNYL citrate 100 MCG/2 ML VIAL IV ONE (14:29)
[2019-01-22] MEDS ORDERED: FLUMAZENIL 0.1 MG/1 ML 10 ML VIAL IV ONE (14:29)
[2019-01-22] MEDS ORDERED: MIDAZOLAM HCL 5 MG/ML VIAL IV ONE (14:29)
[2019-01-22] MEDS ORDERED: ETOMIDATE 2 MG/ML 20 ML VIAL IV ONE (14:29)
[2019-01-22] MEDS ORDERED: SUCCINYLCHOLINE CHLORIDE 20 MG/ML 10 ML VIAL IV ONE (14:29)
--- NOTE | 2019-01-22 16:11 | Discharge Summary ---
Date of Service January 22, 2019 Admission HPI Per Admitting Provider The patient is a 73-year-old male, with a past medical history including recent hospitalization at [facility] ICU from 01/07-01/09/19 for anaplasmosis, with associated leukocytosis and thrombocytopenia, that was treated with doxycycline, Zosyn IV and vancomycin IV. He had initially presented to [facility] with shortness of breath and worsening cough, and was transferred [facility] for further assessment and treatment. During hospitalization at [facility], he was found to have a possible underlying cholecystitis associated with, common bile duct dilatation, with abnormal HIDA scan, and was transferred to [facility] in [place], due to possible need for higher blood bank capabilities. The patient presented to [facility] today with frequent dark stools, was found to have hemoglobin of 4.0, was transfused 2 units PRBCs at that facility, and then transferred to [facility] ICU for further treatment. Medications upon transfer included aspirin 81 mg daily, clopidogrel 75 mg daily and Eliquis twice daily. He did receive pantoprazole 40 mg IV x1 prior to transfer. There was notation of the patient was going to be transferred on a pantoprazole drip, but there was none present at the time patient was received. Upon arrival at [facility] today, vital signs were stable, patient underwent immediate assessment and laboratories and imaging performed, with plan to transfuse 3 units PRBCs, give an additional pantoprazole 40 mg IV now, for a total 80 mg IV loading dose, then pantoprazole 40 mg IV q. 12 hours x 2 days, then daily. Patient with also receive DDAVP 27 mcg IV x1. Principal Diagnosis Upper GI bleed, visible vessel, emergent transfer to tertiary care center Discharge Exam Patient is sedated and ventilated. His vital signs are stable at this time he has been volume resuscitated with multiple units of blood and blood products outlook is guarded Discharge Data Allergies Allergy/AdvReac Type Severity Reaction Status Date / Time No Known Drug Allergies Allergy Unknown Verified 01/06/19 13:09 Consultations 01/22/19 02:23 Consult Case Management - Discharge Planning Routine Consult Cat Scanner Operator Routine 01/22/19 06:09 Consult Gastroenterology Routine 01/22/19 13:00 Burn CD for patient Stat Procedures Performed Operation Date: 01/22/19 10:45 Actual Procedures p EGD Hemostasis - Irphan E Gaslightwala Ordered Studies 01/22/19 09:03 US point of care ultrasound Stat Hospital Course (1) Upper GI bleed: Upper GI bleed/anemia requiring transfusion/medication induced coagulopathy/admitted to intensive care unit- Pantoprazole Received multiple units PRBCs and is on massive transfusion protocol Give DDAVP 27 mcg IV x1. Last dose of Eliquis plus a 24 hours at this point, Emergent endoscopy shows a visible vessel possibly near the sphincter of Oddi bleeding cannot be controlled and recommendation transfer to tertiary care center to provide possible interventional radiology is undertaken (2) Anemia requiring transfusions: As noted above. (3) Atrial fibrillation by electrocardiogram: Remains rate controlled at this point. We will place on IV Lopressor as needed. (4) Medication induced coagulopathy: Holding aspirin, clopidogrel and Eliquis. (5) Diabetes mellitus: Hold metformin Place on Accu-Cheks before meals and at bedtime with NovoLog coverage per scale. (6) Acute kidney injury: Creatinine 1.61 on 01/06. Creatinine 3.74 on 01/09. Creatinine 3.39 today. Prerenal state at this time. Transfuse PRBCs, IV fluids and follow serially (7) Hyperlipidemia: Holding atorvastatin while n.p.o. (8) Hypertension: Holding metoprolol tartrate and amlodipine while n.p.o. 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 Total Time Total Time Spent Total Time Spent (In Minutes): greater than 30 minutes were required to prepare discharge Discharge Plan Discharge Items Patient Disposition: Transfer Acute Care Hospital Reason For Visit: GI BLEED Discharge Diagnosis: upper gi bleed Discharge Goals: Decrease discomfort, Diagnostic testing and Improve disease control Activity: As commented below Activity Comment: pt is critically ill Non-emergency contact: Primary Care Provider and Surgeon Call non-emergency contact if: you have any medication questions Follow-up/Referrals: Alvin Schilling MD [Primary Care Provider] - Diet: Nothing by mouth Addtl Provider Instructions: pt is intubated and ventilated Prescriptions: Discontinued atorvastatin 40 mg tablet 40 mg PO DAILY RF: 0 metformin 500 mg tablet 500 mg PO BID RF: 0 clopidogrel 75 mg tablet 75 mg PO DAILY RF: 0 amlodipine 5 mg tablet 5 mg PO DAILY RF: 0 aspirin [Aspirin Low Dose] 81 mg Tablet,Delayed Release (Dr/Ec) 81 mg PO DAILY RF: 0 metoprolol tartrate 50 mg tablet 50 mg PO BID RF: 0 Stand-Alone Forms: [facility] Discharge Orders: Discharge Order (Routine); Ordered 01/22/19 Ordered By: Rafy Oneill Admission Data Admit Date/Time: 01/22/19 01:55 Attending Provider: Rafy Oneill Admit Provider: Cooper Correia Primary Care Provider: Alvin Schilling Other Providers: Pipo Harrison ; Cooper Correia ; Mateo Akins Service: Intensive Care Unit Other Interventions: Discharge Summary Assessment (RN) Last Done: 01/22/19 15:03 DC Date/Time DO NOT enter until pt leaves facility: 01/22/19 14:30
[2019-01-24 10:35] LABS: iSTAT Art Bld Gas pH Corrected 7.412 (7.35-7.45); iSTAT Arterial Blood Gas pH 7.41 (7.35-7.45)
[2019-01-24 10:36] LABS: iSTAT Art Bld Gas pCO2 Correct 21 mmHg (35-46); iSTAT Arterial Blood Gas HCO3 13 meg/L (19-24); iSTAT Arterial Blood Gas pCO2 21 mmHg (35-46); iSTAT Carbon Dioxide 14 mEq/l (24-31)
== END 2019-01-22 14:30 | disposition short-term general hospital (02) | DRG 813 ==
LOC: SUATTDRO 01-22 01:55 → 1E 01-22 01:55